=== PATIENT | male | born 1935 | race Caucasian/White ===

== ENCOUNTER 2016-05-27 08:38 | Outpatient (RCR) | payer MEDICARE, OTHER ==
[~2016-05-27 08:38] MED LIST: ASPI-586 PO; CARV40CP PO; CEFT1PIG IV; COREG; GLIP10TA13 PO; LISI1TAB8 PO; METF1000 PO; SAXA5TAB PO; SIMV20TA3 PO; SIMVASTATIN; ZOLP5TAB7 PO
[2016-05-27 09:13] LABS: MEAN CORPUSCULAR HEMOGLOBIN 29 PG (25-34); MEAN CORPUSCULAR HGB CONC 34 G/DL (32-36); MEAN CORPUSCULAR VOLUME 85 FL (80-99); MEAN PLATELET VOLUME 9.3 FL (7.4-10.4); PLATELET COUNT 160 10^3/uL (130-400); RED BLOOD COUNT 4.26 10^6/uL (4.35-5.85); RED CELL DISTRIBUTION WIDTH 14.5 % (10.0-14.5); WHITE BLOOD COUNT 18.5 10^3/uL (4.3-11.0)
[2016-05-27 10:25] LABS: ALBUMIN 4.2 G/DL (3.2-4.5); BILIRUBIN,TOTAL 0.4 MG/DL (0.1-1.0); CALCIUM 9.6 MG/DL (8.5-10.1); CREATININE SERUM 1.28 MG/DL (0.60-1.30); TOTAL PROTEIN 7.4 G/DL (6.4-8.2)
== END 2016-08-25 | disposition home or self-care (01) ==
LOC: ONC 08:38
PROVIDERS: ATTEND Internal Medicine Hematology & Oncology
DX: C85.90 Non-Hodgkin lymphoma, unspecified, unspecified site (principal); I25.10 Atherosclerotic heart disease of native coronary artery without angina pectoris; E11.9 Type 2 diabetes mellitus without complications; I10 Essential (primary) hypertension; E78.00 Pure hypercholesterolemia, unspecified; N40.0 Benign prostatic hyperplasia without lower urinary tract symptoms; Z86.73 Personal history of transient ischemic attack (TIA), and cerebral infarction without residual deficits; Z95.1 Presence of aortocoronary bypass graft; Z79.899 Other long term (current) drug therapy
CPT/HCPCS: 36415; 80053; 82232; 83615; 85025; 99213

== ENCOUNTER 2016-10-07 09:41 | Outpatient (RCR) | payer MEDICARE, OTHER ==
[2016-10-07 10:04] LABS: MEAN CORPUSCULAR HEMOGLOBIN 29 PG (25-34); MEAN CORPUSCULAR HGB CONC 32 G/DL (32-36); MEAN CORPUSCULAR VOLUME 88 FL (80-99); MEAN PLATELET VOLUME 9.7 FL (7.4-10.4); PLATELET COUNT 121 10^3/uL (130-400); RED BLOOD COUNT 4.18 10^6/uL (4.35-5.85); RED CELL DISTRIBUTION WIDTH 14.2 % (10.0-14.5); WHITE BLOOD COUNT 18.1 10^3/uL (4.3-11.0)
[2016-10-07 10:26] LABS: ALBUMIN 3.9 G/DL (3.2-4.5); BILIRUBIN,TOTAL 0.6 MG/DL (0.1-1.0); CALCIUM 9.3 MG/DL (8.5-10.1); CREATININE SERUM 1.28 MG/DL (0.60-1.30); POTASSIUM 4.8 MMOL/L (3.6-5.0)
[2016-10-07 10:45] LABS: BAND NEUTROPHILS 0 %; BASOPHILS % (MANUAL) 0 %; EOSINOPHILS % (MANUAL) 1 %; LYMPHOCYTES % (MANUAL) 5 %; NEUTROPHILS % (MANUAL) 25 %
[2016-10-07 10:47] LABS: ANISOCYTOSIS SLIGHT; ATYPICAL LYMPHOCYTES 67 %
== END 2017-01-05 | disposition home or self-care (01) ==
LOC: ONC 09:41
PROVIDERS: ATTEND Internal Medicine Hematology & Oncology
DX: C85.90 Non-Hodgkin lymphoma, unspecified, unspecified site (principal); I25.10 Atherosclerotic heart disease of native coronary artery without angina pectoris; E11.9 Type 2 diabetes mellitus without complications; I10 Essential (primary) hypertension; E78.00 Pure hypercholesterolemia, unspecified; N40.0 Benign prostatic hyperplasia without lower urinary tract symptoms; Z86.73 Personal history of transient ischemic attack (TIA), and cerebral infarction without residual deficits; Z95.1 Presence of aortocoronary bypass graft; Z79.899 Other long term (current) drug therapy
CPT/HCPCS: 36415; 80053; 82232; 82784; 83615; 85007; 85027; 86146; 99213

== ENCOUNTER 2016-10-29 13:10 | Outpatient (RCR) | payer MEDICARE, OTHER | END 2016-10-29 14:36 | disposition home or self-care (01) | PROVIDERS: ATTEND Orthopaedic Surgery | DX: M17.0 Bilateral primary osteoarthritis of knee (principal) ==

== ENCOUNTER 2017-01-17 09:11 | Outpatient (RCR) | payer MEDICARE, OTHER ==
[2017-01-17 10:10] LABS: BASOPHILS # (AUTO) 0.1 10^3/uL (0.0-0.1); BASOPHILS % (AUTO) 1 % (0-10); EOSINOPHILS # (AUTO) 0.2 10^3/uL (0.0-0.3); EOSINOPHILS % (AUTO) 1 % (0-10); MEAN CORPUSCULAR HEMOGLOBIN 29 PG (25-34); MEAN CORPUSCULAR HGB CONC 33 G/DL (32-36); MEAN CORPUSCULAR VOLUME 87 FL (80-99); MEAN PLATELET VOLUME 9.7 FL (7.4-10.4); PLATELET COUNT 123 10^3/uL (130-400); RED BLOOD COUNT 4.38 10^6/uL (4.35-5.85); WHITE BLOOD COUNT 16.5 10^3/uL (4.3-11.0)
[2017-01-17 10:29] LABS: ALBUMIN 4.1 GM/DL (3.2-4.5); BILIRUBIN,TOTAL 0.8 MG/DL (0.1-1.0); CALCIUM 9.6 MG/DL (8.5-10.1); CREATININE SERUM 1.18 MG/DL (0.60-1.30); POTASSIUM 4.6 MMOL/L (3.6-5.0); TOTAL PROTEIN 7.6 GM/DL (6.4-8.2)
== END 2017-02-19 | disposition home or self-care (01) ==
LOC: ONC 09:11
PROVIDERS: ATTEND Internal Medicine Hematology & Oncology
DX: C85.90 Non-Hodgkin lymphoma, unspecified, unspecified site (principal); I25.10 Atherosclerotic heart disease of native coronary artery without angina pectoris; E11.9 Type 2 diabetes mellitus without complications; I10 Essential (primary) hypertension; E78.00 Pure hypercholesterolemia, unspecified; N40.0 Benign prostatic hyperplasia without lower urinary tract symptoms; Z86.73 Personal history of transient ischemic attack (TIA), and cerebral infarction without residual deficits; Z95.1 Presence of aortocoronary bypass graft; Z79.899 Other long term (current) drug therapy
CPT/HCPCS: 36415; 80053; 82232; 85025; 99213

== ENCOUNTER 2017-07-21 09:57 | Outpatient (RCR) | payer MEDICARE, OTHER ==
[2017-04-25 09:58] LABS: HEMATOCRIT 38 % (40-54); HEMOGLOBIN 12.7 G/DL (13.3-17.7); MEAN CORPUSCULAR HEMOGLOBIN 30 PG (25-34); MEAN CORPUSCULAR HGB CONC 33 G/DL (32-36); MEAN CORPUSCULAR VOLUME 89 FL (80-99); MEAN PLATELET VOLUME 9.8 FL (7.4-10.4); PLATELET COUNT 114 10^3/uL (130-400); RED BLOOD COUNT 4.31 10^6/uL (4.35-5.85); RED CELL DISTRIBUTION WIDTH 14.1 % (10.0-14.5); WHITE BLOOD COUNT 19.1 10^3/uL (4.3-11.0)
[2017-04-25 10:12] LABS: BILIRUBIN,TOTAL 0.7 MG/DL (0.1-1.0); CALCIUM 9.5 MG/DL (8.5-10.1); CREATININE SERUM 1.22 MG/DL (0.60-1.30); POTASSIUM 4.9 MMOL/L (3.6-5.0); TOTAL PROTEIN 7.7 GM/DL (6.4-8.2)
[2017-06-16 09:35] LABS: HEMATOCRIT 39 % (40-54); MEAN CORPUSCULAR HEMOGLOBIN 29 PG (25-34); MEAN CORPUSCULAR HGB CONC 33 G/DL (32-36); MEAN CORPUSCULAR VOLUME 88 FL (80-99); MEAN PLATELET VOLUME 9.7 FL (7.4-10.4); PLATELET COUNT 172 10^3/uL (130-400); RED BLOOD COUNT 4.44 10^6/uL (4.35-5.85); RED CELL DISTRIBUTION WIDTH 14.1 % (10.0-14.5); WHITE BLOOD COUNT 21.7 10^3/uL (4.3-11.0)
[2017-06-16 09:54] LABS: ALBUMIN 3.6 GM/DL (3.2-4.5); BILIRUBIN,TOTAL 0.7 MG/DL (0.1-1.0); CALCIUM 9.7 MG/DL (8.5-10.1); CREATININE SERUM 1.37 MG/DL (0.60-1.30); TOTAL PROTEIN 7.5 GM/DL (6.4-8.2)
[2017-07-21 10:15] LABS: HEMATOCRIT 36 % (40-54); MEAN CORPUSCULAR HEMOGLOBIN 30 PG (25-34); MEAN CORPUSCULAR HGB CONC 33 G/DL (32-36); MEAN CORPUSCULAR VOLUME 90 FL (80-99); PLATELET COUNT 112 10^3/uL (130-400); RED BLOOD COUNT 3.97 10^6/uL (4.35-5.85); RED CELL DISTRIBUTION WIDTH 14.9 % (10.0-14.5); WHITE BLOOD COUNT 18.9 10^3/uL (4.3-11.0)
[2017-07-21 10:35] LABS: BILIRUBIN,TOTAL 0.9 MG/DL (0.1-1.0); CALCIUM 9.3 MG/DL (8.5-10.1); CREATININE SERUM 1.17 MG/DL (0.60-1.30); POTASSIUM 4.6 MMOL/L (3.6-5.0); TOTAL PROTEIN 7.3 GM/DL (6.4-8.2)
== END 2017-07-24 | disposition home or self-care (01) ==
LOC: ONC 09:57
PROVIDERS: ATTEND Internal Medicine Hematology & Oncology
DX: C85.90 Non-Hodgkin lymphoma, unspecified, unspecified site (principal); I25.10 Atherosclerotic heart disease of native coronary artery without angina pectoris; E11.9 Type 2 diabetes mellitus without complications; I10 Essential (primary) hypertension; E78.00 Pure hypercholesterolemia, unspecified; N40.0 Benign prostatic hyperplasia without lower urinary tract symptoms; Z86.73 Personal history of transient ischemic attack (TIA), and cerebral infarction without residual deficits; Z95.1 Presence of aortocoronary bypass graft; Z79.899 Other long term (current) drug therapy
CPT/HCPCS: 36415; 80053; 82784; 83615; 85025; 99213

== ENCOUNTER 2017-07-28 08:15 | Observation (INO) | payer MEDICARE, OTHER ==
[~2017-07-28] VITALS: Ht 167.6 cm; Wt 89.9 kg
--- OUTSIDE RECORDS SUMMARY | 2017-07-28 08:22 | XMS REPORT | Continuity of Care Document ---
Author Author [facility] Organization [facility] Address Unknown Phone Unavailable Allergies Active Description Code Type Severity Reaction Onset Reported/Identified Relationship to Patient Clinical Status Yes No Known Drug Allergies [id number] Drug Allergy Unknown N/A 09/04/2015 Medications There is no data. 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 09/06/2015 NANCY ESTES MD R Ot R20.2 PARESTHESIA OF SKIN 09/08/2015 NANCY ESTES MD R Ot 786.7 ABNORMAL CHEST SOUNDS 09/09/2015 NANCY ESTES MD R Ot 786.7 ABNORMAL CHEST SOUNDS 09/09/2015 NANCY ESTES MD R Ot D72.829 ELEVATED WHITE BLOOD CELL COUNT, UNSPECI 09/09/2015 NANCY ESTES MD R Ot J32.9 CHRONIC SINUSITIS, UNSPECIFIED 09/09/2015 NANCY ESTES MD R Ot D72.829 ELEVATED WHITE BLOOD CELL COUNT, UNSPECI 09/09/2015 NANCY ESTES MD R Ot J32.9 CHRONIC SINUSITIS, UNSPECIFIED 09/10/2015 NANCY ESTES MD R Ot D72.829 ELEVATED WHITE BLOOD CELL COUNT, UNSPECI 09/10/2015 NANCY ESTES MD R Ot J32.9 CHRONIC SINUSITIS, UNSPECIFIED 09/11/2015 SEGLIE MD, NANCY R Ot D72.829 ELEVATED WHITE BLOOD CELL COUNT, UNSPECI 09/11/2015 MEERA THOMAS NANCY R Ot J32.9 CHRONIC SINUSITIS, UNSPECIFIED 09/12/2015 MEERA THOMAS NANCY R Ot D72.829 ELEVATED WHITE BLOOD CELL COUNT, UNSPECI 09/12/2015 MEERA THOMAS NANCY R Ot J32.9 CHRONIC SINUSITIS, UNSPECIFIED 09/13/2015 MEERA THOMAS NANCY R Ot D72.829 ELEVATED WHITE BLOOD CELL COUNT, UNSPECI 09/13/2015 MEERA THOMAS NANCY R Ot J32.9 CHRONIC SINUSITIS, UNSPECIFIED 09/13/2015 MEERA THOMAS NANCY R Ot D72.829 ELEVATED WHITE BLOOD CELL COUNT, UNSPECI 09/13/2015 MEERA THOMAS NANCY R Ot J32.9 CHRONIC SINUSITIS, UNSPECIFIED 09/23/2015 MEERA THOMAS NANCY R Ot 786.7 ABNORMAL CHEST SOUNDS 09/23/2015 MEERA THOMAS NANCY R Ot D72.829 ELEVATED WHITE BLOOD CELL COUNT, UNSPECI 09/23/2015 MEERA THOMAS NANCY R Ot J32.9 CHRONIC SINUSITIS, UNSPECIFIED 09/30/2015 MEERA THOMAS NANCY R Ot 786.7 ABNORMAL CHEST SOUNDS 09/30/2015 MEERA THOMAS NANCY R Ot D72.829 ELEVATED WHITE BLOOD CELL COUNT, UNSPECI 09/30/2015 MEERA THOMAS NANCY R Ot J32.9 CHRONIC SINUSITIS, UNSPECIFIED 10/01/2015 LASHELL THOMAS FACC, JAMI FACP CCDS Ot 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 10/01/2015 LASHELL THOMAS FACC, ALI FACP CCDS Ot I25.10 ATHSCL HEART DISEASE OF [place] CORONARY 10/01/2015 LASHELL THOMAS FACC, ALI FACP CCDS Ot I49.3 VENTRICULAR PREMATURE DEPOLARIZATION 10/01/2015 LASHELL THOMAS FACC, JAMI FACP CCDS Ot 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 10/01/2015 LASHELL THOMAS FACC, JAMI FACP CCDS Ot I25.10 ATHSCL HEART DISEASE OF [place] CORONARY 10/01/2015 LASHELL THOMAS FACC, AJMI FACP CCDS Ot I49.3 VENTRICULAR PREMATURE DEPOLARIZATION 10/03/2015 LASHELL THOMAS FACC, ALI FACP CCDS Ot 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 10/03/2015 LASHELL THOMAS FACC, ALI FACP CCDS Ot I25.10 ATHSCL HEART DISEASE OF [place] CORONARY 10/03/2015 LASHELL THOMAS FACC, ALI FACP CCDS Ot I49.3 VENTRICULAR PREMATURE DEPOLARIZATION 10/03/2015 LASHELL THOMAS FACC, ALI FACP CCDS Ot 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 10/03/2015 LASHELL THOMAS FACC, ALI FACP CCDS Ot I25.10 ATHSCL HEART DISEASE OF [place] CORONARY 10/03/2015 LASHELL THOMAS FACC, ALI FACP CCDS Ot I49.3 VENTRICULAR PREMATURE DEPOLARIZATION 10/06/2015 LASHELL THOMAS FACC, ALI FACP CCDS Ot 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 10/06/2015 LASHELL THOMAS FACBrendon, ALI FACP CCDS Ot I25.10 ATHSCL HEART DISEASE OF [place] CORONARY 10/06/2015 LASHELL THOMAS FACC, ALI FACP CCDS Ot I49.3 VENTRICULAR PREMATURE DEPOLARIZATION 10/07/2015 MEERA THOMAS, NANCY R Ot 786.7 ABNORMAL CHEST SOUNDS 10/07/2015 MEERA THOMAS NANCY R Ot D72.829 ELEVATED WHITE BLOOD CELL COUNT, UNSPECI 10/07/2015 NANCY ESTES MD R Ot J32.9 CHRONIC SINUSITIS, UNSPECIFIED 10/07/2015 LASHELL THOMAS FACC, ALI FACP CCDS Ot 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 10/07/2015 LASHELL THOMAS FACC, ALI FACP CCDS Ot I25.10 ATHSCL HEART DISEASE OF [place] CORONARY 10/07/2015 LASHELL THOMAS FACC, ALI FACP CCDS Ot I49.3 VENTRICULAR PREMATURE DEPOLARIZATION 10/07/2015 LASHELL THOMAS FACC, ALI FACP CCDS Ot 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 10/07/2015 LASHELL THOMAS FACC, ALI FACP CCDS Ot I25.10 ATHSCL HEART DISEASE OF [place] CORONARY 10/07/2015 LASHELL THOMAS FACC, ALI FACP CCDS Ot I49.3 VENTRICULAR PREMATURE DEPOLARIZATION 10/13/2015 NANCY ESTES MD R Ot D72.829 ELEVATED WHITE BLOOD CELL COUNT, UNSPECI 10/13/2015 NANCY ESTES MD R Ot J32.9 CHRONIC SINUSITIS, UNSPECIFIED 10/28/2015 LASHELL THOMAS [facility], ALI FACP CCDS Ot 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 10/28/2015 LASHELL THOMAS [facility], ALI [facility] CCDS Ot I25.10 ATHSCL HEART DISEASE OF [place] CORONARY 10/28/2015 LASHELL THOMAS [facility], ALI FACP CCDS Ot I49.3 VENTRICULAR PREMATURE DEPOLARIZATION 10/28/2015 LASHELL THOMAS [facility], ALI FACP CCDS Ot 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 10/28/2015 LASHELL THOMAS [facility], ALI FACP CCDS Ot I25.10 ATHSCL HEART DISEASE OF [place] CORONARY 10/28/2015 LASHELL THOMAS [facility], ALI [facility] CCDS Ot I49.3 VENTRICULAR PREMATURE DEPOLARIZATION 10/28/2015 LIAN THOMAS, SHANELL Finch Ot 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, UNSPECIFIED, UNSPE 10/28/2015 SHANELL BEAL MD, Ot 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, UNSPECIFIED, UNSPE 10/29/2015 SHANELL BEAL MD, Ot 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, UNSPECIFIED, UNSPE 10/30/2015 SHANELL BEAL MD Ot 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 10/30/2015 LIAN THOMAS, SHANELL Finch Ot 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, UNSPECIFIED, UNSPE 10/30/2015 SHANELL BEAL MD Ot 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 10/30/2015 LIAN THOMAS, SHANELL Finch Ot 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, UNSPECIFIED, UNSPE 10/30/2015 SHANELL BEAL MD, Ot 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, UNSPECIFIED, UNSPE 11/14/2015 SHANELL BEAL MD Ot D72.820 LYMPHOCYTOSIS (SYMPTOMATIC) 11/14/2015 SHANELL BEAL MD Ot E11.9 TYPE 2 DIABETES MELLITUS WITHOUT COMPLIC 11/14/2015 SHANELL BEAL MD Ot E78.0 PURE HYPERCHOLESTEROLEMIA 11/14/2015 SHANELL BEAL MD Ot I10 ESSENTIAL (PRIMARY) HYPERTENSION 11/14/2015 SHANELL BEAL MD, Ot I25.10 ATHSCL HEART DISEASE OF [place] CORONARY 11/14/2015 SHANELL BEAL MD, Ot N40.0 ENLARGED PROSTATE WITHOUT LOWER URINARY 11/14/2015 SHANELL BEAL MD Ot R22.0 LOCALIZED SWELLING, MASS AND LUMP, HEAD 11/14/2015 SHANELL BEAL MD Ot 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 11/14/2015 SHANELL BEAL MD, Ot Z86.73 PRSNL HX OF TIA (TIA), AND CEREB INFRC W 11/14/2015 SHANELL BEAL MD, Ot Z95.1 PRESENCE OF AORTOCORONARY BYPASS GRAFT 11/14/2015 NANCY ESTES MD Ot 786.7 ABNORMAL CHEST SOUNDS 11/14/2015 NANCY ESTES MD, Ot D72.829 ELEVATED WHITE BLOOD CELL COUNT, UNSPECI 11/14/2015 NANCY ESTES MD, Ot J32.9 CHRONIC SINUSITIS, UNSPECIFIED 11/14/2015 LASHELL THOMAS FACC, ALI FACP CCDS Ot 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 11/14/2015 LASHELL THOMAS FACC, ALI FACP CCDS Ot I25.10 ATHSCL HEART DISEASE OF [place] CORONARY 11/14/2015 LASHELL THOMAS FACC, ALI FACP CCDS Ot I49.3 VENTRICULAR PREMATURE DEPOLARIZATION 11/14/2015 LASHELL THOMAS FACC, ALI FACP CCDS Ot 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 11/14/2015 LASHELL THOMAS FACC, ALI FACP CCDS Ot I25.10 ATHSCL HEART DISEASE OF [place] CORONARY 11/14/2015 LASHELL THOMAS FACC, ALI FACP CCDS Ot I49.3 VENTRICULAR PREMATURE DEPOLARIZATION 11/14/2015 SHANELL BEAL MD, Ot D72.820 LYMPHOCYTOSIS (SYMPTOMATIC) 11/14/2015 SHANELL BEAL MD Ot E11.9 TYPE 2 DIABETES MELLITUS WITHOUT COMPLIC 11/14/2015 SHANELL BEAL MD, Ot E78.0 PURE HYPERCHOLESTEROLEMIA 11/14/2015 SHANELL BEAL MD Ot I10 ESSENTIAL (PRIMARY) HYPERTENSION 11/14/2015 SHANELL BEAL MD, Ot I25.10 ATHSCL HEART DISEASE OF [place] CORONARY 11/14/2015 SHANELL BEAL MD Ot N40.0 ENLARGED PROSTATE WITHOUT LOWER URINARY 11/14/2015 SHANELL BEAL MD, Ot R22.0 LOCALIZED SWELLING, MASS AND LUMP, HEAD 11/14/2015 SHANELL BEAL MD, Ot Z79.899 OTHER DETENTION (CURRENT) DRUG THERAPY 11/14/2015 SHANELL BEAL MD, Ot Z86.73 PRSNL HX OF TIA (TIA), AND CEREB INFRC W 11/14/2015 SHANELL BEAL MD Ot Z95.1 PRESENCE OF AORTOCORONARY BYPASS GRAFT 11/14/2015 LIAN THOMAS, SHANELL Finch Ot 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, UNSPECIFIED, UNSPE 11/14/2015 LIAN THOMAS, SHANELL Finch Ot 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 11/14/2015 LIAN THOMAS, SHANELL Finch Ot 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, UNSPECIFIED, UNSPE 11/18/2015 SHANELL BEAL MD, Ot 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, UNSPECIFIED, UNSPE 11/18/2015 SHANELL BEAL MD Ot 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 11/26/2015 SHANELL BEAL MD, Ot 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, UNSPECIFIED, UNSPE 11/28/2015 MEERA THOMAS, NANCY Andrew Ot 786.7 ABNORMAL CHEST SOUNDS 11/28/2015 NANCY ESTES MD Ot D72.829 ELEVATED WHITE BLOOD CELL COUNT, UNSPECI 11/28/2015 NANCY ESTES MD Ot J32.9 CHRONIC SINUSITIS, UNSPECIFIED 11/28/2015 LASHELL THOMAS FACC, ALI FACP CCDS Ot 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 11/28/2015 LASHELL THOMAS FACC, ALI FACP CCDS Ot I25.10 ATHSCL HEART DISEASE OF [place] CORONARY 11/28/2015 LASHELL HASKINSC, ALI FACP CCDS Ot I49.3 VENTRICULAR PREMATURE DEPOLARIZATION 11/28/2015 LASHELL THOMAS FACC, ALI FACP CCDS Ot 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 11/28/2015 LASHELL THOMAS FACC, ALI FACP CCDS Ot I25.10 ATHSCL HEART DISEASE OF [place] CORONARY 11/28/2015 LASHELL HASKINSC, ALI FACP CCDS Ot I49.3 VENTRICULAR PREMATURE DEPOLARIZATION 11/28/2015 SHANELL BEAL MD Ot D72.820 LYMPHOCYTOSIS (SYMPTOMATIC) 11/28/2015 SHANELL BEAL MD Ot E11.9 TYPE 2 DIABETES MELLITUS WITHOUT COMPLIC 11/28/2015 SHANELL BEAL MD Ot E78.0 PURE HYPERCHOLESTEROLEMIA 11/28/2015 SHANELL BEAL MD Ot I10 ESSENTIAL (PRIMARY) HYPERTENSION 11/28/2015 SHANELL BEAL MD Ot I25.10 ATHSCL HEART DISEASE OF [place] CORONARY 11/28/2015 SHANELL BEAL MD Ot N40.0 ENLARGED PROSTATE WITHOUT LOWER URINARY 11/28/2015 SHANELL BEAL MD Ot R22.0 LOCALIZED SWELLING, MASS AND LUMP, HEAD 11/28/2015 SHANELL BEAL MD, Ot Z79.899 OTHER DETENTION (CURRENT) DRUG THERAPY 11/28/2015 SHANELL BEAL MD, Ot Z86.73 PRSNL HX OF TIA (TIA), AND CEREB INFRC W 11/28/2015 SHANELL BEAL MD, Ot Z95.1 PRESENCE OF AORTOCORONARY BYPASS GRAFT 11/28/2015 SHANELL BEAL MD, Ot 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, UNSPECIFIED, UNSPE 11/28/2015 SHANELL BEAL MD, Ot 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 11/28/2015 SHANELL BEAL MD, Ot 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, UNSPECIFIED, UNSPE 11/28/2015 NANCY ESTES MD Ot 786.7 ABNORMAL CHEST SOUNDS 11/28/2015 NANCY ESTES MD, Ot D72.829 ELEVATED WHITE BLOOD CELL COUNT, UNSPECI 11/28/2015 NANCY ESTES MD, Ot J32.9 CHRONIC SINUSITIS, UNSPECIFIED 11/28/2015 LASHELL HASKINS, ALI FACP CCDS Ot 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 11/28/2015 LASHELL THOMAS FACC, ALI FACP CCDS Ot I25.10 ATHSCL HEART DISEASE OF [place] CORONARY 11/28/2015 LASHELL THOMAS FACC, ALI FACP CCDS Ot I49.3 VENTRICULAR PREMATURE DEPOLARIZATION 11/28/2015 LASHELL THOMAS FACC, ALI FACP CCDS Ot 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 11/28/2015 LASHELL THOMAS FACC, ALI FACP CCDS Ot I25.10 ATHSCL HEART DISEASE OF [place] CORONARY 11/28/2015 LASHELL HASKINS, ALI FACP CCDS Ot I49.3 VENTRICULAR PREMATURE DEPOLARIZATION 11/28/2015 SHANELL BEAL MD, Ot D72.820 LYMPHOCYTOSIS (SYMPTOMATIC) 11/28/2015 SHANELL BEAL MD, Ot E11.9 TYPE 2 DIABETES MELLITUS WITHOUT COMPLIC 11/28/2015 SHANELL BEAL MD, Ot E78.0 PURE HYPERCHOLESTEROLEMIA 11/28/2015 SHANELL BEAL MD Ot I10 ESSENTIAL (PRIMARY) HYPERTENSION 11/28/2015 SHANELL BEAL MD, Ot I25.10 ATHSCL HEART DISEASE OF [place] CORONARY 11/28/2015 SHANELL BEAL MD, Ot N40.0 ENLARGED PROSTATE WITHOUT LOWER URINARY 11/28/2015 SHANELL BEAL MD, Ot R22.0 LOCALIZED SWELLING, MASS AND LUMP, HEAD 11/28/2015 SHANELL BEAL MD, Ot 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 11/28/2015 SHANELL BEAL MD, Ot Z86.73 PRSNL HX OF TIA (TIA), AND CEREB INFRC W 11/28/2015 SHANELL BEAL MD, Ot Z95.1 PRESENCE OF AORTOCORONARY BYPASS GRAFT 11/28/2015 SHANELL BEAL MD, Ot 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, UNSPECIFIED, UNSPE 11/28/2015 SHANELL BEAL MD, Ot 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 11/28/2015 SHANELL BEAL MD, Ot 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, UNSPECIFIED, UNSPE 12/06/2015 NANCY ESTES MD, Ot D72.829 ELEVATED WHITE BLOOD CELL COUNT, UNSPECI 12/06/2015 NANCY ESTES MD, Ot J32.9 CHRONIC SINUSITIS, UNSPECIFIED 01/05/2016 SHANELL BEAL MD, Ot D72.820 LYMPHOCYTOSIS (SYMPTOMATIC) 01/05/2016 SHANELL BEAL MD, Ot E11.9 TYPE 2 DIABETES MELLITUS WITHOUT COMPLIC 01/05/2016 SHANELL BEAL MD, Ot E78.0 PURE HYPERCHOLESTEROLEMIA 01/05/2016 SHANELL BEAL MD, Ot I10 ESSENTIAL (PRIMARY) HYPERTENSION 01/05/2016 SHANELL BEAL MD, Ot I25.10 ATHSCL HEART DISEASE OF [place] CORONARY 01/05/2016 SHANELL BEAL MD, Ot N40.0 ENLARGED PROSTATE WITHOUT LOWER URINARY 01/05/2016 SHANELL BEAL MD, Ot R22.0 LOCALIZED SWELLING, MASS AND LUMP, HEAD 01/05/2016 SHANELL BEAL MD, Ot 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 01/05/2016 SHANELL BEAL MD, Ot Z86.73 PRSNL HX OF TIA (TIA), AND CEREB INFRC W 01/05/2016 SHANELL BEAL MD, Ot Z95.1 PRESENCE OF AORTOCORONARY BYPASS GRAFT 01/09/2016 SHANELL BEAL MD, Ot D72.820 LYMPHOCYTOSIS (SYMPTOMATIC) 01/09/2016 SHANELL BEAL MD, Ot E11.9 TYPE 2 DIABETES MELLITUS WITHOUT COMPLIC 01/09/2016 SHANELL BEAL MD, Ot E78.0 PURE HYPERCHOLESTEROLEMIA 01/09/2016 SHANELL BEAL MD Ot I10 ESSENTIAL (PRIMARY) HYPERTENSION 01/09/2016 SHANELL BEAL MD Ot I25.10 ATHSCL HEART DISEASE OF [place] CORONARY 01/09/2016 SHANELL BEAL MD, Ot N40.0 ENLARGED PROSTATE WITHOUT LOWER URINARY 01/09/2016 SHANELL BEAL MD, Ot R22.0 LOCALIZED SWELLING, MASS AND LUMP, HEAD 01/09/2016 SHANELL BEAL MD, Ot Z79.899 OTHER DETENTION (CURRENT) DRUG THERAPY 01/09/2016 SHANELL BEAL MD, Ot Z86.73 PRSNL HX OF TIA (TIA), AND CEREB INFRC W 01/09/2016 SHANELL BEAL MD, Ot Z95.1 PRESENCE OF AORTOCORONARY BYPASS GRAFT 01/13/2016 NANCY ESTES MD Ot 786.7 ABNORMAL CHEST SOUNDS 01/13/2016 LASHELL THOMAS FACC, ALI FACP CCDS Ot 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 01/13/2016 LASHELL THOMAS FACC, ALI FACP CCDS Ot I25.10 ATHSCL HEART DISEASE OF [place] CORONARY 01/13/2016 LASHELL THOMAS FACC, ALI FACP CCDS Ot I49.3 VENTRICULAR PREMATURE DEPOLARIZATION 01/13/2016 LASHELL THOMAS FACC, ALI FACP CCDS Ot 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 01/13/2016 LASHELL THOMAS FACC, ALI FACP CCDS Ot I25.10 ATHSCL HEART DISEASE OF [place] CORONARY 01/13/2016 LASHELL THOMAS FACC, ALI FACP CCDS Ot I49.3 VENTRICULAR PREMATURE DEPOLARIZATION 01/13/2016 SHANELL BEAL MD Ot 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, UNSPECIFIED, UNSPE 01/13/2016 SHANELL BEAL MD Ot 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 01/13/2016 SHANELL BEAL MD, Ot 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, UNSPECIFIED, UNSPE 01/13/2016 NANCY ESTES MD, Ot D72.829 ELEVATED WHITE BLOOD CELL COUNT, UNSPECI 01/13/2016 NANCY ESTES MD, Ot J32.9 CHRONIC SINUSITIS, UNSPECIFIED 01/13/2016 SHANELL BEAL MD, Ot D72.820 LYMPHOCYTOSIS (SYMPTOMATIC) 01/13/2016 SHANELL BEAL MD, Ot E11.9 TYPE 2 DIABETES MELLITUS WITHOUT COMPLIC 01/13/2016 SHANELL BEAL MD, Ot E78.0 PURE HYPERCHOLESTEROLEMIA 01/13/2016 SHANELL BEAL MD Ot I10 ESSENTIAL (PRIMARY) HYPERTENSION 01/13/2016 SHANELL BEAL MD, Ot I25.10 ATHSCL HEART DISEASE OF [place] CORONARY 01/13/2016 SHANELL BEAL MD, Ot N40.0 ENLARGED PROSTATE WITHOUT LOWER URINARY 01/13/2016 SHANELL BEAL MD, Ot R22.0 LOCALIZED SWELLING, MASS AND LUMP, HEAD 01/13/2016 SHANELL BEAL MD, Ot 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 01/13/2016 SHANELL BEAL MD, Ot Z86.73 PRSNL HX OF TIA (TIA), AND CEREB INFRC W 01/13/2016 SHANELL BEAL MD Ot Z95.1 PRESENCE OF AORTOCORONARY BYPASS GRAFT 01/14/2016 SHANELL BEAL MD, Ot D72.820 LYMPHOCYTOSIS (SYMPTOMATIC) 01/14/2016 SHANELL BEAL MD, Ot E11.9 TYPE 2 DIABETES MELLITUS WITHOUT COMPLIC 01/14/2016 SHANELL BEAL MD, Ot E78.0 PURE HYPERCHOLESTEROLEMIA 01/14/2016 SHANELL BEAL MD, Ot I10 ESSENTIAL (PRIMARY) HYPERTENSION 01/14/2016 SHANELL BEAL MD, Ot I25.10 ATHSCL HEART DISEASE OF [place] CORONARY 01/14/2016 SHANELL BEAL MD, Ot N40.0 ENLARGED PROSTATE WITHOUT LOWER URINARY 01/14/2016 SHANELL BEAL MD, Ot R22.0 LOCALIZED SWELLING, MASS AND LUMP, HEAD 01/14/2016 SHANELL BEAL MD, Ot Z79.899 OTHER DETENTION (CURRENT) DRUG THERAPY 01/14/2016 SHANELL BEAL MD, Ot Z86.73 PRSNL HX OF TIA (TIA), AND CEREB INFRC W 01/14/2016 SHANELL BEAL MD Ot Z95.1 PRESENCE OF AORTOCORONARY BYPASS GRAFT 02/12/2016 SHANELL BEAL MD Ot 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, UNSPECIFIED, UNSPE 02/12/2016 SHANELL BEAL MD, Ot E11.9 TYPE 2 DIABETES MELLITUS WITHOUT COMPLIC 02/12/2016 SHANELL BEAL MD, Ot E78.0 PURE HYPERCHOLESTEROLEMIA 02/12/2016 SHANELL BEAL MD Ot I10 ESSENTIAL (PRIMARY) HYPERTENSION 02/12/2016 SHANELL BEAL MD Ot I25.10 ATHSCL HEART DISEASE OF [place] CORONARY 02/12/2016 LIAN MD, SHANELL K Ot N40.0 ENLARGED PROSTATE WITHOUT LOWER URINARY 02/12/2016 SHANELL BEAL MD Ot 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 02/12/2016 SHANELL BEAL MD, Ot Z86.73 PRSNL HX OF TIA (TIA), AND CEREB INFRC W 02/12/2016 SHANELL BEAL MD Ot Z95.1 PRESENCE OF AORTOCORONARY BYPASS GRAFT 04/12/2016 SHANELL BEAL MD, Ot 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, UNSPECIFIED, UNSPE 04/12/2016 SHANELL BEAL MD Ot E11.9 TYPE 2 DIABETES MELLITUS WITHOUT COMPLIC 04/12/2016 SHANELL BEAL MD Ot E78.0 PURE HYPERCHOLESTEROLEMIA 04/12/2016 SHANELL BEAL MD Ot I10 ESSENTIAL (PRIMARY) HYPERTENSION 04/12/2016 SHANELL BEAL MD Ot I25.10 ATHSCL HEART DISEASE OF [place] CORONARY 04/12/2016 SHANELL BEAL MD, Ot N40.0 BENIGN PROSTATIC HYPERPLASIA WITHOUT LOW 04/12/2016 SHANELL BEAL MD, Ot Z79.899 OTHER DETENTION (CURRENT) DRUG THERAPY 04/12/2016 SHANELL BEAL MD, Ot Z86.73 PRSNL HX OF TIA (TIA), AND CEREB INFRC W 04/12/2016 SHANELL BEAL MD Ot Z95.1 PRESENCE OF AORTOCORONARY BYPASS GRAFT 04/13/2016 SHANELL BEAL MD, Ot 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, UNSPECIFIED, UNSPE 04/13/2016 SHANELL BEAL MD Ot E11.9 TYPE 2 DIABETES MELLITUS WITHOUT COMPLIC 04/13/2016 SHANELL BEAL MD Ot I10 ESSENTIAL (PRIMARY) HYPERTENSION 04/13/2016 SHANELL BEAL MD Ot I25.10 ATHSCL HEART DISEASE OF [place] CORONARY 04/13/2016 SHANELL BEAL MD Ot N40.0 BENIGN PROSTATIC HYPERPLASIA WITHOUT LOW 04/13/2016 SHANELL BEAL MD Ot Z79.899 OTHER DETENTION (CURRENT) DRUG THERAPY 04/13/2016 SHANELL BEAL MD Ot Z86.73 PRSNL HX OF TIA (TIA), AND CEREB INFRC W 04/13/2016 SHANELL BEAL MD Ot Z95.1 PRESENCE OF AORTOCORONARY BYPASS GRAFT 05/03/2016 MEERA THOMAS, NANCY R Ot 786.7 ABNORMAL CHEST SOUNDS 05/03/2016 LASHELL THOMAS FACC, ALI FACP CCDS Ot 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 05/03/2016 LASHELL THOMAS FAC, ALI FACP CCDS Ot I25.10 ATHSCL HEART DISEASE OF [place] CORONARY 05/03/2016 LASHELL THOMAS FAC, ALI FACP CCDS Ot I49.3 VENTRICULAR PREMATURE DEPOLARIZATION 05/03/2016 LASHELL THOMAS FACC, ALI FACP CCDS Ot 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 05/03/2016 LASHELL THOMAS FAC, ALI FACP CCDS Ot I25.10 ATHSCL HEART DISEASE OF [place] CORONARY 05/03/2016 LASHELL THOMAS [facility], ALI FACP CCDS Ot I49.3 VENTRICULAR PREMATURE DEPOLARIZATION 05/03/2016 SHANELL BEAL MD Ot 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, UNSPECIFIED, UNSPE 05/03/2016 SHANELL BEAL MD Ot 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 05/03/2016 SHANELL BEAL MD, Ot 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, UNSPECIFIED, UNSPE 05/03/2016 NANCY ESTES MD Ot D72.829 ELEVATED WHITE BLOOD CELL COUNT, UNSPECI 05/03/2016 NANCY ESTES MD, Ot J32.9 CHRONIC SINUSITIS, UNSPECIFIED 05/03/2016 SHANELL BEAL MD, Ot 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, UNSPECIFIED, UNSPE 05/03/2016 SHANELL BEAL MD Ot E11.9 TYPE 2 DIABETES MELLITUS WITHOUT COMPLIC 05/03/2016 SHANELL BEAL MD, Ot E78.0 PURE HYPERCHOLESTEROLEMIA * DO NOT USE * 05/03/2016 SHANELL BEAL MD Ot I10 ESSENTIAL (PRIMARY) HYPERTENSION 05/03/2016 SHANELL BEAL MD, Ot I25.10 ATHSCL HEART DISEASE OF [place] CORONARY 05/03/2016 SHANELL BEAL MD, Ot N40.0 BENIGN PROSTATIC HYPERPLASIA WITHOUT LOW 05/03/2016 SHANELL BEAL MD, Ot 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 05/03/2016 SHANELL BEAL MD, Ot Z86.73 PRSNL HX OF TIA (TIA), AND CEREB INFRC W 05/03/2016 SHANELL BEAL MD Ot Z95.1 PRESENCE OF AORTOCORONARY BYPASS GRAFT 05/03/2016 NANCY ESTES MD Ot 786.7 ABNORMAL CHEST SOUNDS 05/03/2016 LASHELL THOMAS [facility], ALI FACP CCDS Ot 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 05/03/2016 LASHELL THOMAS [facility], ALI FACP CCDS Ot I25.10 ATHSCL HEART DISEASE OF [place] CORONARY 05/03/2016 LASHELL THOMAS [facility], ALI FACP CCDS Ot I49.3 VENTRICULAR PREMATURE DEPOLARIZATION 05/03/2016 LASHELL THOMAS [facility], ALI FACP CCDS Ot 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 05/03/2016 LASHELL THOMAS [facility], ALI FACP CCDS Ot I25.10 ATHSCL HEART DISEASE OF [place] CORONARY 05/03/2016 LASHELL THOMAS [facility], ALI FACP CCDS Ot I49.3 VENTRICULAR PREMATURE DEPOLARIZATION 05/03/2016 SHANELL BEAL MD, Ot 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, UNSPECIFIED, UNSPE 05/03/2016 SHANELL BEAL MD Ot 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 05/03/2016 SHANELL BEAL MD, Ot 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, UNSPECIFIED, UNSPE 05/03/2016 NANCY ESTES MD, Ot D72.829 ELEVATED WHITE BLOOD CELL COUNT, UNSPECI 05/03/2016 NANCY ESTES MD, Ot J32.9 CHRONIC SINUSITIS, UNSPECIFIED 05/03/2016 SHANELL BEAL MD, Ot 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, UNSPECIFIED, UNSPE 05/03/2016 SHANELL BEAL MD, Ot E11.9 TYPE 2 DIABETES MELLITUS WITHOUT COMPLIC 05/03/2016 SHANELL BEAL MD, Ot E78.0 PURE HYPERCHOLESTEROLEMIA * DO NOT USE * 05/03/2016 SHANELL BEAL MD Ot I10 ESSENTIAL (PRIMARY) HYPERTENSION 05/03/2016 SHANELL BEAL MD, Ot I25.10 ATHSCL HEART DISEASE OF [place] CORONARY 05/03/2016 SHANELL BEAL MD, Ot N40.0 BENIGN PROSTATIC HYPERPLASIA WITHOUT LOW 05/03/2016 SHANELL BEAL MD, Ot 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 05/03/2016 SHANELL BEAL MD, Ot Z86.73 PRSNL HX OF TIA (TIA), AND CEREB INFRC W 05/03/2016 SHANELL BEAL MD, Ot Z95.1 PRESENCE OF AORTOCORONARY BYPASS GRAFT 05/04/2016 SHANELL BEAL MD, Ot C91.10 CHRONIC LYMPHOCYTIC LEUK OF B-CELL TYPE 05/04/2016 SHANELL BEAL MD, Ot D72.820 LYMPHOCYTOSIS (SYMPTOMATIC) 05/04/2016 SHANELL BEAL MD, Ot E11.9 TYPE 2 DIABETES MELLITUS WITHOUT COMPLIC 05/04/2016 SHANELL BEAL MD, Ot I10 ESSENTIAL (PRIMARY) HYPERTENSION 05/28/2016 SHANELL BEAL MD, Ot 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, UNSPECIFIED, UNSPE 05/28/2016 SHANELL BEAL MD, Ot E11.9 TYPE 2 DIABETES MELLITUS WITHOUT COMPLIC 05/28/2016 SHANELL BEAL MD, Ot E78.0 PURE HYPERCHOLESTEROLEMIA * DO NOT USE * 05/28/2016 SHANELL BEAL MD, Ot I10 ESSENTIAL (PRIMARY) HYPERTENSION 05/28/2016 SHANELL BEAL MD, Ot I25.10 ATHSCL HEART DISEASE OF [place] CORONARY 05/28/2016 SHANELL BEAL MD, Ot N40.0 BENIGN PROSTATIC HYPERPLASIA WITHOUT LOW 05/28/2016 SHANELL BEAL MD, Ot 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 05/28/2016 SHANELL BEAL MD, Ot Z86.73 PRSNL HX OF TIA (TIA), AND CEREB INFRC W 05/28/2016 SHANELL BEAL MD, Ot Z95.1 PRESENCE OF AORTOCORONARY BYPASS GRAFT 05/31/2016 SHANELL BEAL MD, Ot C91.10 CHRONIC LYMPHOCYTIC LEUK OF B-CELL TYPE 05/31/2016 SHANELL BEAL MD, Ot D72.820 LYMPHOCYTOSIS (SYMPTOMATIC) 05/31/2016 SHANELL BEAL MD, Ot E11.9 TYPE 2 DIABETES MELLITUS WITHOUT COMPLIC 05/31/2016 SHANELL BEAL MD, Ot I10 ESSENTIAL (PRIMARY) HYPERTENSION 07/13/2016 SHANELL BEAL MD, Ot 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, UNSPECIFIED, UNSPE 07/13/2016 SHANELL BEAL MD, Ot E11.9 TYPE 2 DIABETES MELLITUS WITHOUT COMPLIC 07/13/2016 SHANELL BEAL MD, Ot E78.00 PURE HYPERCHOLESTEROLEMIA, UNSPECIFIED 07/13/2016 SHANELL BEAL MD, Ot I10 ESSENTIAL (PRIMARY) HYPERTENSION 07/13/2016 SHANELL BEAL MD, Ot I25.10 ATHSCL HEART DISEASE OF [place] CORONARY 07/13/2016 SHANELL BEAL MD, Ot N40.0 BENIGN PROSTATIC HYPERPLASIA WITHOUT LOW 07/13/2016 SHANELL BEAL MD, Ot 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 07/13/2016 SHANELL BEAL MD, Ot Z86.73 PRSNL HX OF TIA (TIA), AND CEREB INFRC W 07/13/2016 SHANELL BEAL MD Ot Z95.1 PRESENCE OF AORTOCORONARY BYPASS GRAFT 08/25/2016 SHANELL BEAL MD, Ot 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, UNSPECIFIED, UNSPE 08/25/2016 SHANELL BEAL MD Ot E11.9 TYPE 2 DIABETES MELLITUS WITHOUT COMPLIC 08/25/2016 SHANELL BEAL MD Ot E78.00 PURE HYPERCHOLESTEROLEMIA, UNSPECIFIED 08/25/2016 SHANELL BEAL MD Ot I10 ESSENTIAL (PRIMARY) HYPERTENSION 08/25/2016 SHANELL BEAL MD Ot I25.10 ATHSCL HEART DISEASE OF [place] CORONARY 08/25/2016 SHANELL BEAL MD, Ot N40.0 BENIGN PROSTATIC HYPERPLASIA WITHOUT LOW 08/25/2016 SHANELL BEAL MD Ot Z79.899 OTHER DETENTION (CURRENT) DRUG THERAPY 08/25/2016 SHANELL BEAL MD, Ot Z86.73 PRSNL HX OF TIA (TIA), AND CEREB INFRC W 08/25/2016 SHANELL BEAL MD Ot Z95.1 PRESENCE OF AORTOCORONARY BYPASS GRAFT 10/08/2016 SHANELL BEAL MD, Ot 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, UNSPECIFIED, UNSPE 10/08/2016 SHANELL BEAL MD, Ot E11.9 TYPE 2 DIABETES MELLITUS WITHOUT COMPLIC 10/08/2016 SHANELL BEAL MD, Ot E78.00 PURE HYPERCHOLESTEROLEMIA, UNSPECIFIED 10/08/2016 SHANELL BEAL MD Ot I10 ESSENTIAL (PRIMARY) HYPERTENSION 10/08/2016 SHANELL BEAL MD Ot I25.10 ATHSCL HEART DISEASE OF [place] CORONARY 10/08/2016 SHANELL BEAL MD, Ot N40.0 BENIGN PROSTATIC HYPERPLASIA WITHOUT LOW 10/08/2016 SHANELL BEAL MD Ot Z79.899 OTHER DETENTION (CURRENT) DRUG THERAPY 10/08/2016 SHANELL BEAL MD, Ot Z86.73 PRSNL HX OF TIA (TIA), AND CEREB INFRC W 10/08/2016 SHANELL BEAL MD Ot Z95.1 PRESENCE OF AORTOCORONARY BYPASS GRAFT 10/10/2016 SHANELL BEAL MD, Ot 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, UNSPECIFIED, UNSPE 10/10/2016 SHANELL BEAL MD Ot E11.9 TYPE 2 DIABETES MELLITUS WITHOUT COMPLIC 10/10/2016 SHANELL BEAL MD Ot E78.00 PURE HYPERCHOLESTEROLEMIA, UNSPECIFIED 10/10/2016 SHANELL BEAL MD Ot I10 ESSENTIAL (PRIMARY) HYPERTENSION 10/10/2016 SHANELL BEAL MD Ot I25.10 ATHSCL HEART DISEASE OF [place] CORONARY 10/10/2016 SHANELL BEAL MD, Ot N40.0 BENIGN PROSTATIC HYPERPLASIA WITHOUT LOW 10/10/2016 SHANELL BEAL MD Ot 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 10/10/2016 SHANELL BEAL MD Ot Z86.73 PRSNL HX OF TIA (TIA), AND CEREB INFRC W 10/10/2016 SHANELL BEAL MD Ot Z95.1 PRESENCE OF AORTOCORONARY BYPASS GRAFT 10/10/2016 SHANELL BEAL MD, Ot 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, UNSPECIFIED, UNSPE 10/10/2016 SHANELL BEAL MD Ot E11.9 TYPE 2 DIABETES MELLITUS WITHOUT COMPLIC 10/10/2016 SHANELL BEAL MD Ot E78.00 PURE HYPERCHOLESTEROLEMIA, UNSPECIFIED 10/10/2016 SHANELL BEAL MD Ot I10 ESSENTIAL (PRIMARY) HYPERTENSION 10/10/2016 SHANELL BEAL MD Ot I25.10 ATHSCL HEART DISEASE OF [place] CORONARY 10/10/2016 SHANELL BEAL MD Ot N40.0 BENIGN PROSTATIC HYPERPLASIA WITHOUT LOW 10/10/2016 SHANELL BEAL MD Ot Z79.899 OTHER DETENTION (CURRENT) DRUG THERAPY 10/10/2016 SHANELL BEAL MD Ot Z86.73 PRSNL HX OF TIA (TIA), AND CEREB INFRC W 10/10/2016 SHANELL BEAL MD Ot Z95.1 PRESENCE OF AORTOCORONARY BYPASS GRAFT 10/10/2016 SHANELL BEAL MD Ot 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, UNSPECIFIED, UNSPE 10/10/2016 SHANELL BEAL MD Ot E11.9 TYPE 2 DIABETES MELLITUS WITHOUT COMPLIC 10/10/2016 SHANELL BEAL MD Ot E78.00 PURE HYPERCHOLESTEROLEMIA, UNSPECIFIED 10/10/2016 SHANELL BEAL MD Ot I10 ESSENTIAL (PRIMARY) HYPERTENSION 10/10/2016 SHANELL BEAL MD Ot I25.10 ATHSCL HEART DISEASE OF [place] CORONARY 10/10/2016 SHANELL BEAL MD Ot N40.0 BENIGN PROSTATIC HYPERPLASIA WITHOUT LOW 10/10/2016 SHANELL BEAL MD Ot Z79.899 OTHER DETENTION (CURRENT) DRUG THERAPY 10/10/2016 SHANELL BEAL MD Ot Z86.73 PRSNL HX OF TIA (TIA), AND CEREB INFRC W 10/10/2016 SHANELL BEAL MD Ot Z95.1 PRESENCE OF AORTOCORONARY BYPASS GRAFT 10/10/2016 SHANELL BEAL MD, Ot 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, UNSPECIFIED, UNSPE 10/10/2016 SHANELL BEAL MD Ot E11.9 TYPE 2 DIABETES MELLITUS WITHOUT COMPLIC 10/10/2016 SHANELL BEAL MD Ot E78.00 PURE HYPERCHOLESTEROLEMIA, UNSPECIFIED 10/10/2016 SHANELL BEAL MD Ot I10 ESSENTIAL (PRIMARY) HYPERTENSION 10/10/2016 SHANELL BEAL MD Ot I25.10 ATHSCL HEART DISEASE OF [place] CORONARY 10/10/2016 SHANELL BEAL MD Ot N40.0 BENIGN PROSTATIC HYPERPLASIA WITHOUT LOW 10/10/2016 SHANELL BEAL MD Ot Z79.899 OTHER DETENTION (CURRENT) DRUG THERAPY 10/10/2016 SHANELL BEAL MD, Ot Z86.73 PRSNL HX OF TIA (TIA), AND CEREB INFRC W 10/10/2016 SHANELL BEAL MD Ot Z95.1 PRESENCE OF AORTOCORONARY BYPASS GRAFT 10/10/2016 SHANELL BEAL MD, Ot 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, UNSPECIFIED, UNSPE 10/10/2016 SHANELL BEAL MD, Ot E11.9 TYPE 2 DIABETES MELLITUS WITHOUT COMPLIC 10/10/2016 SHANELL BEAL MD Ot E78.00 PURE HYPERCHOLESTEROLEMIA, UNSPECIFIED 10/10/2016 SHANELL BEAL MD Ot I10 ESSENTIAL (PRIMARY) HYPERTENSION 10/10/2016 SHANELL BEAL MD Ot I25.10 ATHSCL HEART DISEASE OF [place] CORONARY 10/10/2016 SHANELL BEAL MD Ot N40.0 BENIGN PROSTATIC HYPERPLASIA WITHOUT LOW 10/10/2016 SHANELL BEAL MD Ot Z79.899 OTHER DETENTION (CURRENT) DRUG THERAPY 10/10/2016 SHANELL BEAL MD Ot Z86.73 PRSNL HX OF TIA (TIA), AND CEREB INFRC W 10/10/2016 SHANELL BEAL MD Ot Z95.1 PRESENCE OF AORTOCORONARY BYPASS GRAFT 10/10/2016 SHANELL BEAL MD, Ot 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, UNSPECIFIED, UNSPE 10/10/2016 SHANELL BEAL MD Ot E11.9 TYPE 2 DIABETES MELLITUS WITHOUT COMPLIC 10/10/2016 SHANELL BEAL MD, Ot E78.00 PURE HYPERCHOLESTEROLEMIA, UNSPECIFIED 10/10/2016 SHANELL BEAL MD Ot I10 ESSENTIAL (PRIMARY) HYPERTENSION 10/10/2016 SHANELL BEAL MD, Ot I25.10 ATHSCL HEART DISEASE OF [place] CORONARY 10/10/2016 SHANELL BEAL MD, Ot N40.0 BENIGN PROSTATIC HYPERPLASIA WITHOUT LOW 10/10/2016 SHANELL BEAL MD, Ot 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 10/10/2016 SHANELL BEAL MD, Ot Z86.73 PRSNL HX OF TIA (TIA), AND CEREB INFRC W 10/10/2016 SHANELL BEAL MD, Ot Z95.1 PRESENCE OF AORTOCORONARY BYPASS GRAFT 10/29/2016 JANEEN COLE BEEBE F Ot M17.0 BILATERAL PRIMARY OSTEOARTHRITIS OF KNEE 11/01/2016 COLE VERNON DO F Ot M17.0 BILATERAL PRIMARY OSTEOARTHRITIS OF KNEE 11/11/2016 SHANELL BEAL MD, Ot 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, UNSPECIFIED, UNSPE 11/11/2016 SHANELL BEAL MD, Ot E11.9 TYPE 2 DIABETES MELLITUS WITHOUT COMPLIC 11/11/2016 SHANELL BEAL MD, Ot E78.00 PURE HYPERCHOLESTEROLEMIA, UNSPECIFIED 11/11/2016 SHANELL BEAL MD, Ot I10 ESSENTIAL (PRIMARY) HYPERTENSION 11/11/2016 SHANELL BEAL MD, Ot I25.10 ATHSCL HEART DISEASE OF [place] CORONARY 11/11/2016 SHANELL BEAL MD, Ot N40.0 BENIGN PROSTATIC HYPERPLASIA WITHOUT LOW 11/11/2016 SHANELL BEAL MD, Ot Z79.899 OTHER DETENTION (CURRENT) DRUG THERAPY 11/11/2016 SHANELL BEAL MD, Ot Z86.73 PRSNL HX OF TIA (TIA), AND CEREB INFRC W 11/11/2016 SHANELL BEAL MD Ot Z95.1 PRESENCE OF AORTOCORONARY BYPASS GRAFT 01/05/2017 SHANELL BEAL MD, Ot 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, UNSPECIFIED, UNSPE 01/05/2017 SHANELL BEAL MD, Ot E11.9 TYPE 2 DIABETES MELLITUS WITHOUT COMPLIC 01/05/2017 SHANELL BEAL MD, Ot E78.00 PURE HYPERCHOLESTEROLEMIA, UNSPECIFIED 01/05/2017 SHANELL BEAL MD Ot I10 ESSENTIAL (PRIMARY) HYPERTENSION 01/05/2017 SHANELL BEAL MD Ot I25.10 ATHSCL HEART DISEASE OF [place] CORONARY 01/05/2017 SHANELL BEAL MD Ot N40.0 BENIGN PROSTATIC HYPERPLASIA WITHOUT LOW 01/05/2017 SHANELL BEAL MD Ot 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 01/05/2017 SHANELL BEAL MD Ot Z86.73 PRSNL HX OF TIA (TIA), AND CEREB INFRC W 01/05/2017 SHANELL BEAL MD Ot Z95.1 PRESENCE OF AORTOCORONARY BYPASS GRAFT 01/14/2017 STEPHANIE GARVIN MD Ot 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, UNSPECIFIED, UNSPE 01/14/2017 STEPHANIE GARVIN MD Ot E11.9 TYPE 2 DIABETES MELLITUS WITHOUT COMPLIC 01/14/2017 STEPHANIE GARVIN MD Ot E78.00 PURE HYPERCHOLESTEROLEMIA, UNSPECIFIED 01/14/2017 STEPHANIE GARVIN MD Ot I10 ESSENTIAL (PRIMARY) HYPERTENSION 01/14/2017 STEPHANIE GARVIN MD, Ot I25.10 ATHSCL HEART DISEASE OF [place] CORONARY 01/14/2017 STEPHANIE GARVIN MD Ot N40.0 BENIGN PROSTATIC HYPERPLASIA WITHOUT LOW 01/14/2017 STEPHANIE GARVIN MD Ot 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 01/14/2017 STEPHANIE GARVIN MD Ot Z86.73 PRSNL HX OF TIA (TIA), AND CEREB INFRC W 01/14/2017 STEPHANIE GARVIN MD Ot Z95.1 PRESENCE OF AORTOCORONARY BYPASS GRAFT 01/17/2017 MEERA THOMAS, NANCY R Ot 786.7 ABNORMAL CHEST SOUNDS 01/17/2017 LASHELL THOMAS FACC, ALI FACP CCDS Ot 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 01/17/2017 LASHELL THOMAS FACC, ALI FACP CCDS Ot I25.10 ATHSCL HEART DISEASE OF [place] CORONARY 01/17/2017 LASHELL THOMAS FACC, ALI FACP CCDS Ot I49.3 VENTRICULAR PREMATURE DEPOLARIZATION 01/17/2017 LASHELL THOMAS FACC, ALI FACP CCDS Ot 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 01/17/2017 LASHELL THOMAS FACC, ALI FACP CCDS Ot I25.10 ATHSCL HEART DISEASE OF [place] CORONARY 01/17/2017 LASHELL MD FACC, ALI FACP CCDS Ot I49.3 VENTRICULAR PREMATURE DEPOLARIZATION 01/17/2017 SHANELL BEAL MD Ot 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, UNSPECIFIED, UNSPE 01/17/2017 SHANELL BEAL MD Ot 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 01/17/2017 SHANELL BEAL MD, Ot 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, UNSPECIFIED, UNSPE 01/17/2017 MEERA THOMAS, NANCY Andrew Ot D72.829 ELEVATED WHITE BLOOD CELL COUNT, UNSPECI 01/17/2017 NANCY ESTES MD Ot J32.9 CHRONIC SINUSITIS, UNSPECIFIED 01/17/2017 SHANELL BEAL MD Ot C91.10 CHRONIC LYMPHOCYTIC LEUK OF B-CELL TYPE 01/17/2017 SHANELL BEAL MD, Ot D72.820 LYMPHOCYTOSIS (SYMPTOMATIC) 01/17/2017 SHANELL BEAL MD Ot E11.9 TYPE 2 DIABETES MELLITUS WITHOUT COMPLIC 01/17/2017 SHANELL BEAL MD Ot I10 ESSENTIAL (PRIMARY) HYPERTENSION 01/17/2017 STEPHANIE GARVIN MD, Ot 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, UNSPECIFIED, UNSPE 01/17/2017 STEPHANIE GARVIN MD Ot E11.9 TYPE 2 DIABETES MELLITUS WITHOUT COMPLIC 01/17/2017 STEPHANIE GARVIN MD Ot E78.00 PURE HYPERCHOLESTEROLEMIA, UNSPECIFIED 01/17/2017 STEPHANIE GARVIN MD, Ot I10 ESSENTIAL (PRIMARY) HYPERTENSION 01/17/2017 STEPHANIE GARVIN MD Ot I25.10 ATHSCL HEART DISEASE OF [place] CORONARY 01/17/2017 STEPHANIE GARVIN MD Ot N40.0 BENIGN PROSTATIC HYPERPLASIA WITHOUT LOW 01/17/2017 STEPHANIE GARVIN MD Ot Z79.899 OTHER DETENTION (CURRENT) DRUG THERAPY 01/17/2017 STEPHANIE GARVIN MD Ot Z86.73 PRSNL HX OF TIA (TIA), AND CEREB INFRC W 01/17/2017 STEPHANIE GARVIN MD, Ot Z95.1 PRESENCE OF AORTOCORONARY BYPASS GRAFT 01/18/2017 STEPHANIE GARVIN MD, Ot 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, UNSPECIFIED, UNSPE 01/18/2017 STEPHANIE GARVIN MD Ot E11.9 TYPE 2 DIABETES MELLITUS WITHOUT COMPLIC 01/18/2017 XUN MD, DARDEN-ESTEFANY Ot E78.00 PURE HYPERCHOLESTEROLEMIA, UNSPECIFIED 01/18/2017 STEPHANIE GARVIN MD Ot I10 ESSENTIAL (PRIMARY) HYPERTENSION 01/18/2017 STEPHANIE GARVIN MD Ot I25.10 ATHSCL HEART DISEASE OF [place] CORONARY 01/18/2017 STEPHANIE GARVIN MD Ot N40.0 BENIGN PROSTATIC HYPERPLASIA WITHOUT LOW 01/18/2017 STEPHANIE GARVIN MD Ot Z79.899 OTHER DETENTION (CURRENT) DRUG THERAPY 01/18/2017 STEPHANIE GARVIN MD Ot Z86.73 PRSNL HX OF TIA (TIA), AND CEREB INFRC W 01/18/2017 STEPHANIE GARVIN MD Ot Z95.1 PRESENCE OF AORTOCORONARY BYPASS GRAFT 02/11/2017 STEPHANIE GARVIN MD, Ot 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, UNSPECIFIED, UNSPE 02/11/2017 STEPHANIE GARVIN MD Ot E11.9 TYPE 2 DIABETES MELLITUS WITHOUT COMPLIC 02/11/2017 STEPHANIE GARVIN MD, Ot E78.00 PURE HYPERCHOLESTEROLEMIA, UNSPECIFIED 02/11/2017 STEPHANIE GARVIN MD Ot I10 ESSENTIAL (PRIMARY) HYPERTENSION 02/11/2017 STEPHANIE GARVIN MD Ot I25.10 ATHSCL HEART DISEASE OF [place] CORONARY 02/11/2017 STEPHANIE GARVIN MD Ot N40.0 BENIGN PROSTATIC HYPERPLASIA WITHOUT LOW 02/11/2017 STEPHANIE GARVIN MD, Ot Z79.899 OTHER DETENTION (CURRENT) DRUG THERAPY 02/11/2017 STEPHANIE GARVIN MD, Ot Z86.73 PRSNL HX OF TIA (TIA), AND CEREB INFRC W 02/11/2017 STEPHANIE GARVIN MD Ot Z95.1 PRESENCE OF AORTOCORONARY BYPASS GRAFT 02/19/2017 STEPHANIE GARVIN MD, Ot 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, UNSPECIFIED, UNSPE 02/19/2017 STEPHANIE GARVIN MD Ot E11.9 TYPE 2 DIABETES MELLITUS WITHOUT COMPLIC 02/19/2017 STEPHANIE GARVIN MD Ot E78.00 PURE HYPERCHOLESTEROLEMIA, UNSPECIFIED 02/19/2017 STEPHANIE GARVIN MD Ot I10 ESSENTIAL (PRIMARY) HYPERTENSION 02/19/2017 STEPHANIE GARVIN MD Ot I25.10 ATHSCL HEART DISEASE OF [place] CORONARY 02/19/2017 STEPHANIE GARVIN MD, Ot N40.0 BENIGN PROSTATIC HYPERPLASIA WITHOUT LOW 02/19/2017 STEPHANIE GARVIN MD, Ot 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 02/19/2017 STEPHANIE GARVIN MD, Ot Z86.73 PRSNL HX OF TIA (TIA), AND CEREB INFRC W 02/19/2017 STEPHANIE GARVIN MD, Ot Z95.1 PRESENCE OF AORTOCORONARY BYPASS GRAFT 04/25/2017 NANCY ESTES MD Ot 786.7 ABNORMAL CHEST SOUNDS 04/25/2017 LASHELL THOMAS FAC, ALI FACP CCDS Ot 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 04/25/2017 LASHELL THOMAS FACC, ALI FACP CCDS Ot I25.10 ATHSCL HEART DISEASE OF [place] CORONARY 04/25/2017 LASHELL THOMAS FACC, ALI FACP CCDS Ot I49.3 VENTRICULAR PREMATURE DEPOLARIZATION 04/25/2017 LASHELL THOMAS FACC, ALI FACP CCDS Ot 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 04/25/2017 LASHELL THOMAS FACC, ALI FACP CCDS Ot I25.10 ATHSCL HEART DISEASE OF [place] CORONARY 04/25/2017 LASHELL THOMAS FACC, ALI FACP CCDS Ot I49.3 VENTRICULAR PREMATURE DEPOLARIZATION 04/25/2017 SHANELL BEAL MD Ot 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, UNSPECIFIED, UNSPE 04/25/2017 SHANELL BEAL MD Ot 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 04/25/2017 SHANELL BEAL MD, Ot 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, UNSPECIFIED, UNSPE 04/25/2017 NANCY ESTES MD Ot D72.829 ELEVATED WHITE BLOOD CELL COUNT, UNSPECI 04/25/2017 NANCY ESTES MD Ot J32.9 CHRONIC SINUSITIS, UNSPECIFIED 04/25/2017 SHANELL BEAL MD Ot C91.10 CHRONIC LYMPHOCYTIC LEUK OF B-CELL TYPE 04/25/2017 SHANELL BEAL MD Ot D72.820 LYMPHOCYTOSIS (SYMPTOMATIC) 04/25/2017 SHANELL BEAL MD Ot E11.9 TYPE 2 DIABETES MELLITUS WITHOUT COMPLIC 04/25/2017 SHANELL BEAL MD Ot I10 ESSENTIAL (PRIMARY) HYPERTENSION 04/26/2017 STEPHANIE GARVIN MD, Ot 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, UNSPECIFIED, UNSPE 04/26/2017 STEPHANIE GARVIN MD Ot E11.9 TYPE 2 DIABETES MELLITUS WITHOUT COMPLIC 04/26/2017 STEPHANIE GARVIN MD, Ot E78.00 PURE HYPERCHOLESTEROLEMIA, UNSPECIFIED 04/26/2017 STEPHANIE GARVIN MD Ot I10 ESSENTIAL (PRIMARY) HYPERTENSION 04/26/2017 STEPHANIE GARVIN MD, Ot I25.10 ATHSCL HEART DISEASE OF [place] CORONARY 04/26/2017 STEPHANIE GARVIN MD, Ot N40.0 BENIGN PROSTATIC HYPERPLASIA WITHOUT LOW 04/26/2017 STEPHANIE GARVIN MD, Ot 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 04/26/2017 STEPHANIE GARVIN MD, Ot Z86.73 PRSNL HX OF TIA (TIA), AND CEREB INFRC W 04/26/2017 STEPHANIE GARVIN MD, Ot Z95.1 PRESENCE OF AORTOCORONARY BYPASS GRAFT 06/14/2017 STEPHANIE GARVIN MD, Ot 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, UNSPECIFIED, UNSPE 06/14/2017 STEPHANIE GARVIN MD, Ot E11.9 TYPE 2 DIABETES MELLITUS WITHOUT COMPLIC 06/14/2017 STEPHANIE GARVIN MD, Ot E78.00 PURE HYPERCHOLESTEROLEMIA, UNSPECIFIED 06/14/2017 STEPHANIE GARVIN MD Ot I10 ESSENTIAL (PRIMARY) HYPERTENSION 06/14/2017 STEPHANIE GARVIN MD, Ot I25.10 ATHSCL HEART DISEASE OF [place] CORONARY 06/14/2017 STEPHANIE GARVIN MD, Ot N40.0 BENIGN PROSTATIC HYPERPLASIA WITHOUT LOW 06/14/2017 STEPHANIE GARVIN MD, Ot 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0 BENIGN PROSTATIC HYPERPLASIA WITHOUT LOW 07/15/2017 STEPHANIE GARVIN MD Ot 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 07/15/2017 STEPHANIE GARVIN MD, Ot Z86.73 PRSNL HX OF TIA (TIA), AND CEREB INFRC W 07/15/2017 STEPHANIE GARVIN MD Ot Z95.1 PRESENCE OF AORTOCORONARY BYPASS GRAFT 07/24/2017 STEPHANIE GARVIN MD, Ot 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, UNSPECIFIED, UNSPE 07/24/2017 STEPHANIE GARVIN MD, Ot E11.9 TYPE 2 DIABETES MELLITUS WITHOUT COMPLIC 07/24/2017 STEPHANIE GARVIN MD Ot E78.00 PURE HYPERCHOLESTEROLEMIA, UNSPECIFIED 07/24/2017 STEPHANIE GARVIN MD, Ot I10 ESSENTIAL (PRIMARY) HYPERTENSION 07/24/2017 STEPHANIE GARVIN MD, Ot I25.10 ATHSCL HEART DISEASE OF [place] CORONARY 07/24/2017 STEPHANIE GARVIN MD, Ot N40.0 BENIGN PROSTATIC HYPERPLASIA WITHOUT LOW 07/24/2017 STEPHANIE GARVIN MD, Ot Z79.899 OTHER DETENTION (CURRENT) DRUG THERAPY 07/24/2017 STEPHANIE GARVIN MD, Ot Z86.73 PRSNL HX OF TIA (TIA), AND CEREB INFRC W 07/24/2017 STEPHANIE GARVIN MD Ot Z95.1 PRESENCE OF AORTOCORONARY BYPASS GRAFT Procedures There is no data. Results There is no data. Encounters ACCT No. Visit Date/Time Discharge Status Pt. Type Provider Facility Loc./Unit Complaint [id number] 07/25/2017 00:11:00 07/25/2017 23:59:59 CLS Preadmit STEPHANIE GARVIN MD [facility] ONC [id number] 07/21/2017 09:57:00 07/24/2017 00:01:00 DIS Outpatient STEPHANIE GARVIN MD [facility] ONC [id number] 01/17/2017 09:11:00 02/19/2017 00:01:00 DIS Outpatient STEPHANIE GARVIN MD [facility] ONC [id number] 10/07/2016 09:41:00 01/05/2017 00:01:00 DIS Outpatient SHANELL BEAL MD [facility] ONC [id number] 10/29/2016 13:10:00 10/29/2016 14:36:00 DIS Outpatient JANEEN BEEBECOLE [facility] REHAB B KNEE OA [id number] 05/27/2016 08:38:00 08/25/2016 00:01:00 DIS Outpatient SHANELL BEAL MD [facility] ONC [id number] 05/03/2016 07:51:00 05/03/2016 23:59:59 CLS Outpatient SHANELL BEAL MD [facility] RAD MONOCLONAL B-CELL LYMPHOCYTOSIS [id number] 02/12/2016 09:07:00 04/12/2016 00:01:00 DIS Outpatient SHANELL BEAL MD [facility] ONC [id number] 12/30/2015 09:17:00 01/05/2016 00:01:00 DIS Outpatient SHANELL BEAL MD [facility] ONC [id number] 12/07/2015 00:08:00 12/07/2015 23:59:59 CLS Preadmit NANCY ESTES MD [facility] 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, ELEVATED WHITE BLOOD CELL COUNT [id number] 09/13/2015 08:50:00 12/06/2015 00:01:00 DIS Outpatient NANCY ESTES MD [facility] 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, ELEVATED WHITE BLOOD CELL COUNT [id number] 10/29/2015 13:32:00 10/29/2015 23:59:59 CLS Outpatient SHANELL BEAL MD [facility] RAD CEREBELLAR STROKE [id number] 10/28/2015 08:34:00 10/28/2015 23:59:59 CLS Outpatient SHANELL BEAL MD [facility] RAD LYMPHOMA [id number] 10/02/2015 10:41:00 10/02/2015 23:59:59 CLS Outpatient LASHELL THOMAS FACC, JAMI BANDA CCDS [facility] CARD CAD,FREQUENT PVCS,CEREBELLAR STROKE [id number] 09/30/2015 08:09:00 09/30/2015 23:59:59 CLS Outpatient LASHELL THOMAS FACC, AJMI BANDA CCDS [facility] CARD CAD,FREQUENT PVCS,CEREBELLAR STROKE [id number] 09/04/2015 11:42:00 09/06/2015 11:15:00 DIS Inpatient NANCY ESTES MD [facility] 4TH LEUKOCYTOSIS;SINUSITIS; PARETHESIAS [id number] 03/14/2013 14:21:00 03/14/2013 23:59:59 CLS Outpatient NANCY ESTES MD [facility] MALU DORAN
[2017-07-28 08:38] LABS: HEMATOCRIT 36 % (40-54); HEMOGLOBIN 11.8 G/DL (13.3-17.7); MEAN CORPUSCULAR HEMOGLOBIN 29 PG (25-34); MEAN CORPUSCULAR HGB CONC 32 G/DL (32-36); MEAN CORPUSCULAR VOLUME 91 FL (80-99); MEAN PLATELET VOLUME 10.1 FL (7.4-10.4); PLATELET COUNT 126 10^3/uL (130-400); RED BLOOD COUNT 4.01 10^6/uL (4.35-5.85); RED CELL DISTRIBUTION WIDTH 15.3 % (10.0-14.5); WHITE BLOOD COUNT 23.7 10^3/uL (4.3-11.0)
--- NOTE | 2017-07-28 08:55 | Diagnostic Imaging Report ---
INDICATION: Shortness of breath and abnormal heart rhythm. Time of exam: 8:42 AM Correlation is made with prior chest from 09/04/2015. The heart is enlarged but stable. There are changes of median sternotomy and CABG. There are central congestive changes identified but no evidence of overt congestive failure. No effusion or pneumothorax is seen. IMPRESSION: Cardiomegaly and central congestion without evidence of overt failure. Dictated by: Dictated on workstation # [id number]
[2017-07-28 09:01] LABS: ALANINE AMINOTRANSFERASE 21 U/L (0-55); ALBUMIN 3.9 GM/DL (3.2-4.5); ALKALINE PHOSPHATASE 186 U/L (40-136); BILIRUBIN,TOTAL 1.1 MG/DL (0.1-1.0); BUN/CREATININE RATIO 24; CALCIUM 8.9 MG/DL (8.5-10.1); CARBON DIOXIDE 21 MMOL/L (21-32); CHLORIDE 106 MMOL/L (98-107); CREATININE SERUM 1.11 MG/DL (0.60-1.30); GFR ESTIMATED > 60; GLUCOSE 188 MG/DL (70-105); POTASSIUM 4.6 MMOL/L (3.6-5.0); SODIUM 136 MMOL/L (135-145); TOTAL PROTEIN 7.3 GM/DL (6.4-8.2)
[2017-07-28 09:29] LABS: BILIRUBIN,URINE NEGATIVE (NEGATIVE); CLARITY,URINE CLEAR; COLOR,URINE YELLOW; GLUCOSE, URINE (UA) NEGATIVE (NEGATIVE); KETONES,URINE NEGATIVE (NEGATIVE); LEUKOCYTE ESTERASE ,URINE NEGATIVE (NEGATIVE); NITRITE,URINE NEGATIVE (NEGATIVE); PH,URINE 5 (5-9); PROTEIN,URINE 2+ (NEGATIVE); UROBILINOGEN,URINE NORMAL (NORMAL)
--- NOTE | 2017-07-28 09:50 | ED Respiratory ---
General Chief Complaint: Respiratory Problems Stated Complaint: SOB Nursing Triage Note: PATIENT STARTED FEEELING SHORT OF BREATH YESTERDAY. HE HAS HISTORY OF ABNORMAL HEART RHYTHM. HE ALSO STATES HE HAD PNEUMONIA 2 WEEKS AGO. Source: patient Exam Limitations: no limitations History of Present Illness Date Seen by Provider: Jul 28, 2017 Time Seen by Provider: 09:36 Initial Comments The patient is an 82-year-old white male who presents with a chief complaint of shortness of breath. He reports that he began to notice this yesterday. He states that when [place] the [place]. When he returned to his car he felt the walk to be fatiguing with some shortness of breath. This sensation continued and this morning he noted it to be worse. There is no past history of heart attack. He had an echocardiogram in 2016 which was normal. There has been no acute chest pain. He has not noted pedal edema. He stated that 2 weeks ago he was treated as an outpatient for pneumonia. By his description he received 3 daily IM injections for what I am sure was Rocephin and then finished up with oral medications. He states that there is no fever or sweats at this time. Timing/Duration: yesterday Allergies and Home Medications Allergies Coded Allergies: No Known Drug Allergies (Unverified , 09/04/15) Home Medications Aspirin 81 Mg Tablet.dr, 81 MG PO BID, (Reported) Carvedilol Phosphate 40 Mg Cap, 40 MG PO DAILY, (Reported) Ceftriaxone Na/Dextrose,Iso 1 Gm/50 Ml Piggyback, 1 GM IV DAILY Prescribed by: MADI ESTES on 09/06/15 0822 Glipizide 10 Mg Tablet, 10 MG PO DAILY, (Reported) Lisinopril/Hydrochlorothiazide 1 Each Tablet, 1 TAB PO DAILY, (Reported) Metformin HCl 1,000 Mg Tablet, 1,000 MG PO BID, (Reported) Saxagliptin HCl 5 Mg Tablet, 5 MG PO DAILY, (Reported) Simvastatin 20 Mg Tablet, 20 MG PO HS, (Reported) Zolpidem Tartrate 5 Mg Tablet, 5 MG PO HS PRN for SLEEP, (Reported) Patient Home Medication List Home Medication List Reviewed: Yes Constitutional: see HPI EENTM: no symptoms reported Respiratory: dyspnea on exertion Cardiovascular: no symptoms reported Gastrointestinal: no symptoms reported Genitourinary: no symptoms reported Musculoskeletal: no symptoms reported Skin: no symptoms reported Psychiatric/Neurological: No Symptoms Reported Past [id number] Hx Patient Social History Alcohol Use: Denies Use Recreational Drug Use: No Smoking Status: Never a Smoker 2nd Hand Smoke Exposure: No Recent Foreign Travel: No Contact w/Someone Who Travel: No Recent Infectious Disease Expo: No Recent Hopitalizations: No Physical Abuse: No Sexual Abuse: No Immunizations Up To Date Date of Pneumonia Vaccine: Apr 08, 2015 Date of Influenza Vaccine: Apr 08, 2015 Seasonal Allergies Seasonal Allergies: No Surgeries History of Surgeries: Yes (TURP, HERNIA, SINUS, TUMOR ON BACK) Surgeries: Appendectomy Respiratory History of Respiratory Disorde: No Cardiovascular History of Cardiac Disorders: Yes (ABNORMAL RHYTHM.) Neurological History of Neurological Disord: No Reproductive System Hx Reproductive Disorders: No Gastrointestinal History of Gastrointestinal Di: No Musculoskeletal History of Musculoskeletal Dis: Yes Musculoskeletal Disorders: Arthritis Endocrine History of Endocrine Disorders: Yes Endocrine Disorders: Diabetes, Non-Insulin dep Cancer History of Cancer: No Psychosocial History of Psychiatric Problem: No Suicide Risk Score: 0 Integumentary History of Skin or Integumenta: No Blood Transfusions History of Blood Disorders: No Family Medical History Family Medial History: Patient reports no known family medical history. Physical Exam Vital Signs Vital Signs - First Documented 07/28/17 08:23 Temp 97.2 Pulse 87 Resp 25 B/P (MAP) 162/117 (132) Pulse Ox 96 O2 Delivery Room Air Capillary Refill : Less Than 3 Seconds General Appearance: mild distress Eyes: Bilateral Eye Normal Inspection HEENT: normal ENT inspection Neck: non-tender, full range of motion, supple, normal inspection, carotid bruit Respiratory: chest non-tender, no respiratory distress, no accessory muscle use , decreased breath sounds (distant) Cardiovascular: other (irregular and with prematurity's) Gastrointestinal: normal bowel sounds, non tender, soft, no organomegaly, no pulsatile mass Extremities: normal range of motion, non-tender, normal inspection, no pedal edema, no calf tenderness, normal capillary refill, pelvis stable Neurologic/Psychiatric: parakeet raiser II-XII nml as tested, no motor/sensory deficits, alert, normal mood/affect, oriented x 3 Skin: normal color, warm/dry, cyanosis, cool, diaphoresis, damp Lymphatic: no adenopathy Progress/Results/Core Measures Suspected Sepsis Recent Fever Within 48 Hours: No Infection Criteria Present: None New/Unexplained Altered Menta: No Sepsis Screen: No Definite Risk Sepsis Diagnosis: SIRS Temperature:97.2 Pulse: 87 Respiratory Rate: 25 Laboratory Tests 07/28/17 08:30: White Blood Count 23.7H Blood Pressure 162 /117 Mean: 132 Laboratory Tests 07/28/17 08:30: Creatinine 1.11, Platelet Count 126L, Total Bilirubin 1.1H Results/Orders Lab Results Laboratory Tests Test 07/28/17 08:30 07/28/17 09:18 Range/Units White Blood Count 23.7 H 4.3-11.0 10^3/uL Red Blood Count 4.01 L 4.35-5.85 10^6/uL Hemoglobin 11.8 L 13.3-17.7 G/DL Hematocrit 36 L 40-54 % Mean Corpuscular Volume 91 80-99 FL Mean Corpuscular Hemoglobin 29 25-34 PG Mean Corpuscular Hemoglobin Concent 32 32-36 G/DL Red Cell Distribution Width 15.3 H 10.0-14.5 % Platelet Count 126 L 130-400 10^3/uL Mean Platelet Volume 10.1 7.4-10.4 FL Neutrophils (%) (Auto) 42-75 % Lymphocytes (%) (Auto) 12-44 % Monocytes (%) (Auto) 0-12 % Eosinophils (%) (Auto) 0-10 % Basophils (%) (Auto) 0-10 % Neutrophils # (Auto) 1.8-7.8 X 10^3 Lymphocytes # (Auto) 1.0-4.0 X 10^3 Monocytes # (Auto) 0.0-1.0 X 10^3 Eosinophils # (Auto) 0.0-0.3 10^3/uL Basophils # (Auto) 0.0-0.1 10^3/uL Sodium Level 136 135-145 MMOL/L Potassium Level 4.6 3.6-5.0 MMOL/L Chloride Level 106 98-107 MMOL/L Carbon Dioxide Level 21 21-32 MMOL/L Anion Gap 9 5-14 MMOL/L Blood Urea Nitrogen 27 H 7-18 MG/DL Creatinine 1.11 0.60-1.30 MG/DL Estimat Glomerular Filtration Rate > 60 BUN/Creatinine Ratio 24 Glucose Level 188 H 70-105 MG/DL Calcium Level 8.9 8.5-10.1 MG/DL Total Bilirubin 1.1 H 0.1-1.0 MG/DL Aspartate Amino Transf (AST/SGOT) 28 5-34 U/L Alanine Aminotransferase (ALT/SGPT) 21 0-55 U/L Alkaline Phosphatase 186 H 40-136 U/L B-Type Natriuretic Peptide 652.0 H <100.0 PG/ML Total Protein 7.3 6.4-8.2 GM/DL Albumin 3.9 3.2-4.5 GM/DL Urine Color YELLOW Urine Clarity CLEAR Urine pH 5 5-9 Urine Specific [place] 1.025 H 1.016-1.022 Urine Protein 2+ H NEGATIVE Urine Glucose (UA) NEGATIVE NEGATIVE Urine Ketones NEGATIVE NEGATIVE Urine Nitrite NEGATIVE NEGATIVE Urine Bilirubin NEGATIVE NEGATIVE Urine Urobilinogen NORMAL NORMAL MG/DL Urine Leukocyte Esterase NEGATIVE NEGATIVE Urine RBC (Auto) 1+ H NEGATIVE Urine RBC NONE /HPF Urine WBC 0-2 /HPF Urine Squamous Epithelial Cells 10-25 H /HPF Urine Renal Epithelial Cells NONE /HPF Urine Crystals NONE /LPF Urine Bacteria TRACE /HPF Urine Casts PRESENT /LPF Urine Hyaline Casts 0-2 H /LPF Urine Mucus NEGATIVE /LPF Urine Culture Indicated NO My Orders Orders - NATTY WALKER MD Cbc With Automated Diff (07/28/17 08:16) Comprehensive Metabolic Panel (07/28/17 08:16) Ua Culture If Indicated (07/28/17 08:16) Chest 1 View, Ap/Pa Only (07/28/17 08:16) Ekg Tracing (07/28/17 08:16) BNP (07/28/17 09:39) Vital Signs/I&O Vital Sign - Last 12Hours 07/28/17 08:23 Temp 97.2 Pulse 87 Resp 25 B/P (MAP) 162/117 (132) Pulse Ox 96 O2 Delivery Room Air Capillary Refill : Less Than 3 Seconds Blood Pressure Mean: 132 Departure Impression Impression: Primary Impression: pulmonary edema Disposition: ADMITTED INPATIENT Condition: Stable/Unchanged Admissions Decision to Admit Reason: Admit from ER (General) Decision to Admit/Date: Jul 28, 2017 Time/Decision to Admit Time: 10:32 Departure-Patient Inst. Referrals: NANCY ESTES MD (PCP/Family) Primary Care Physician NATTY WALKER MD Jul 28, 2017 09:50
[2017-07-28 10:05] LABS: WBC,URINE 0-2 /HPF
[2017-07-28 10:06] LABS: BACTERIA,URINE TRACE /HPF; HYALINE CASTS, URINE 0-2 /LPF
[2017-07-28 11:10] VITALS: BP 146/67
[2017-07-28] MEDS ORDERED: FUROSEMIDE 40 MG/4 ML INJ (LASIX) IVP NR (11:37)
--- OUTSIDE RECORDS SUMMARY | 2017-07-28 12:16 | XMS REPORT | Continuity of Care Document ---
Author Author [facility] Organization [facility] Address Unknown Phone Unavailable Allergies Active Description Code Type Severity Reaction Onset Reported/Identified Relationship to Patient Clinical Status Yes No Known Drug Allergies [id number] Drug Allergy Unknown N/A 09/04/2015 Medications There is no data. 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 10/01/2015 LASHELL THOMAS FACC, JAMI FACP CCDS Ot I25.10 ATHSCL HEART DISEASE OF [place] CORONARY 10/01/2015 LASHELL THOMAS FACC, JAMI FACP CCDS Ot I49.3 VENTRICULAR PREMATURE DEPOLARIZATION 10/03/2015 LASHELL THOMAS FACC, ALI FACP CCDS Ot 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 10/03/2015 LASHELL THOMAS FACC, ALI FACP CCDS Ot I25.10 ATHSCL HEART DISEASE OF [place] CORONARY 10/03/2015 LASHELL THOMAS FACC, ALI FACP CCDS Ot I49.3 VENTRICULAR PREMATURE DEPOLARIZATION 10/03/2015 LASHELL THOMAS FACC, ALI FACP CCDS Ot 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 10/03/2015 LASHELL THOMAS FACC, ALI FACP CCDS Ot I25.10 ATHSCL HEART DISEASE OF [place] CORONARY 10/03/2015 LASHELL THOMAS FACC, ALI FACP CCDS Ot I49.3 VENTRICULAR PREMATURE DEPOLARIZATION 10/06/2015 LASHELL THOMAS FACC, ALI FACP CCDS Ot 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 10/06/2015 LASHELL THOMAS FACBrendon, ALI FACP CCDS Ot I25.10 ATHSCL HEART DISEASE OF [place] CORONARY 10/06/2015 LASHELL THOMAS FACC, ALI FACP [...] CCDS Ot I25.10 ATHSCL HEART DISEASE OF [place] CORONARY 10/07/2015 LASHELL THOMAS FACC, ALI FACP CCDS Ot I49.3 VENTRICULAR PREMATURE DEPOLARIZATION 10/07/2015 LASHELL THOMAS FACC, ALI FACP CCDS Ot 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 10/07/2015 LASHELL THOMAS FACC, ALI FACP CCDS Ot I25.10 ATHSCL HEART DISEASE OF [place] CORONARY 10/07/2015 LASHELL THOMAS FACC, ALI FACP CCDS Ot I49.3 VENTRICULAR PREMATURE DEPOLARIZATION 10/13/2015 NANCY ESTES MD R Ot D72.829 ELEVATED WHITE BLOOD CELL COUNT, UNSPECI 10/13/2015 NANCY ESTES MD R Ot J32.9 CHRONIC SINUSITIS, UNSPECIFIED 10/28/2015 LASHELL THOMAS [facility], ALI FACP CCDS Ot 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 10/28/2015 LASHELL THOMAS [facility], [facility] CCDS Ot I25.10 ATHSCL HEART DISEASE OF [place] CORONARY 10/28/2015 LASHELL THOMAS [facility], ALI FACP CCDS Ot I49.3 VENTRICULAR PREMATURE DEPOLARIZATION 10/28/2015 LASHELL THOMAS [facility], ALI FACP CCDS Ot 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 10/28/2015 LASHELL THOMAS [facility], ALI FACP CCDS Ot I25.10 ATHSCL HEART DISEASE OF [place] CORONARY 10/28/2015 LASHELL THOMAS [facility], [facility] CCDS Ot I49.3 VENTRICULAR PREMATURE DEPOLARIZATION 10/28/2015 [...] MD, Ot I25.10 ATHSCL HEART DISEASE OF [place] CORONARY 11/14/2015 SHANELL BEAL MD, Ot N40.0 ENLARGED PROSTATE WITHOUT LOWER URINARY 11/14/2015 SHANELL BEAL MD Ot R22.0 LOCALIZED SWELLING, MASS AND LUMP, HEAD 11/14/2015 SHANELL BEAL MD Ot Z79.899 OTHER GAUGE MAKER (CURRENT) DRUG THERAPY 11/14/2015 SHANELL BEAL MD, [...] CCDS Ot I25.10 ATHSCL HEART DISEASE OF [place] CORONARY 11/14/2015 LASHELL THOMAS FACC, ALI FACP CCDS Ot I49.3 VENTRICULAR PREMATURE DEPOLARIZATION 11/14/2015 LASHELL THOMAS FACC, ALI FACP CCDS Ot 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 11/14/2015 LASHELL THOMAS FACC, ALI FACP CCDS Ot I25.10 ATHSCL HEART DISEASE OF [place] CORONARY 11/14/2015 LASHELL THOMAS FACC, ALI FACP CCDS Ot I49.3 VENTRICULAR PREMATURE DEPOLARIZATION 11/14/2015 SHANELL BEAL MD, Ot D72.820 LYMPHOCYTOSIS (SYMPTOMATIC) 11/14/2015 SHANELL BEAL MD Ot E11.9 TYPE 2 DIABETES MELLITUS WITHOUT COMPLIC 11/14/2015 SHANELL BEAL MD, Ot E78.0 PURE HYPERCHOLESTEROLEMIA 11/14/2015 SHANELL BEAL MD Ot I10 ESSENTIAL (PRIMARY) HYPERTENSION 11/14/2015 SHANELL BEAL MD, Ot I25.10 ATHSCL HEART DISEASE OF [place] CORONARY 11/14/2015 SHANELL BEAL MD Ot N40.0 ENLARGED PROSTATE WITHOUT LOWER URINARY 11/14/2015 SHANELL BEAL MD, Ot R22.0 LOCALIZED SWELLING, MASS AND LUMP, HEAD 11/14/2015 SHANELL BEAL MD, Ot Z79.899 OTHER LONGTERM (CURRENT) DRUG THERAPY 11/14/2015 SHANELL BEAL MD, [...] CCDS Ot I25.10 ATHSCL HEART DISEASE OF [place] CORONARY 11/28/2015 LASHELL HASKINSC, ALI FACP CCDS Ot I49.3 VENTRICULAR PREMATURE DEPOLARIZATION 11/28/2015 LASHELL THOMAS FACC, ALI FACP CCDS Ot 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 11/28/2015 LASHELL THOMAS FACC, ALI FACP CCDS Ot I25.10 ATHSCL HEART DISEASE OF [place] CORONARY 11/28/2015 LASHELL HASKINSC, ALI FACP CCDS Ot I49.3 VENTRICULAR PREMATURE DEPOLARIZATION 11/28/2015 SHANELL BEAL MD Ot D72.820 LYMPHOCYTOSIS (SYMPTOMATIC) 11/28/2015 SHANELL BEAL MD Ot E11.9 TYPE 2 DIABETES MELLITUS WITHOUT COMPLIC 11/28/2015 SHANELL BEAL MD Ot E78.0 PURE HYPERCHOLESTEROLEMIA 11/28/2015 SHANELL BEAL MD Ot I10 ESSENTIAL (PRIMARY) HYPERTENSION 11/28/2015 SHANELL BEAL MD Ot I25.10 ATHSCL HEART DISEASE OF [place] CORONARY 11/28/2015 SHANELL BEAL MD Ot N40.0 ENLARGED PROSTATE WITHOUT LOWER URINARY 11/28/2015 SHANELL BEAL MD Ot R22.0 LOCALIZED SWELLING, MASS AND LUMP, HEAD 11/28/2015 SHANELL BEAL MD, Ot Z79.899 OTHER LONGTERM (CURRENT) DRUG THERAPY 11/28/2015 SHANELL BEAL MD, [...] CCDS Ot I25.10 ATHSCL HEART DISEASE OF [place] CORONARY 11/28/2015 LASHELL THOMAS FACC, ALI FACP CCDS Ot I49.3 VENTRICULAR PREMATURE DEPOLARIZATION 11/28/2015 LASHELL THOMAS FACC, ALI FACP CCDS Ot 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 11/28/2015 LASHELL THOMAS FACC, ALI FACP CCDS Ot I25.10 ATHSCL HEART DISEASE OF [place] CORONARY 11/28/2015 LASHELL HASKINS, ALI FACP CCDS Ot I49.3 VENTRICULAR PREMATURE DEPOLARIZATION 11/28/2015 SHANELL BEAL MD, Ot D72.820 LYMPHOCYTOSIS (SYMPTOMATIC) 11/28/2015 SHANELL BEAL MD, Ot E11.9 TYPE 2 DIABETES MELLITUS WITHOUT COMPLIC 11/28/2015 SHANELL BEAL MD, Ot E78.0 PURE HYPERCHOLESTEROLEMIA 11/28/2015 SHANELL BEAL MD Ot I10 ESSENTIAL (PRIMARY) HYPERTENSION 11/28/2015 SHANELL BEAL MD, Ot I25.10 ATHSCL HEART DISEASE OF [place] CORONARY 11/28/2015 SHANELL BEAL MD, Ot N40.0 ENLARGED PROSTATE WITHOUT LOWER URINARY 11/28/2015 SHANELL BEAL MD, Ot R22.0 LOCALIZED SWELLING, MASS AND LUMP, HEAD 11/28/2015 SHANELL BEAL MD, Ot Z79.899 OTHER GAUGE MAKER (CURRENT) DRUG THERAPY 11/28/2015 SHANELL BEAL MD, [...] MD, Ot I25.10 ATHSCL HEART DISEASE OF [place] CORONARY 01/05/2016 SHANELL BEAL MD, Ot N40.0 ENLARGED PROSTATE WITHOUT LOWER URINARY 01/05/2016 SHANELL BEAL MD, Ot R22.0 LOCALIZED SWELLING, MASS AND LUMP, HEAD 01/05/2016 SHANELL BEAL MD, Ot Z79.899 OTHER GAUGE MAKER (CURRENT) DRUG THERAPY 01/05/2016 SHANELL BEAL MD, [...] MD Ot I25.10 ATHSCL HEART DISEASE OF [place] CORONARY 01/09/2016 SHANELL BEAL MD, Ot N40.0 ENLARGED PROSTATE WITHOUT LOWER URINARY 01/09/2016 SHANELL BEAL MD, Ot R22.0 LOCALIZED SWELLING, MASS AND LUMP, HEAD 01/09/2016 SHANELL BEAL MD, Ot Z79.899 OTHER LONGTERM (CURRENT) DRUG THERAPY 01/09/2016 SHANELL BEAL MD, Ot Z86.73 PRSNL HX OF TIA (TIA), AND CEREB INFRC W 01/09/2016 SHANELL BEAL MD, Ot Z95.1 PRESENCE OF AORTOCORONARY BYPASS GRAFT 01/13/2016 NANCY ESTES MD Ot 786.7 ABNORMAL CHEST SOUNDS 01/13/2016 LASHELL THOMAS FACC, ALI FACP CCDS Ot 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 01/13/2016 LASHELL THOMAS FACC, ALI FACP CCDS Ot I25.10 ATHSCL HEART DISEASE OF [place] CORONARY 01/13/2016 LASHELL THOMAS FACC, ALI FACP CCDS Ot I49.3 VENTRICULAR PREMATURE DEPOLARIZATION 01/13/2016 LASHELL THOMAS FACC, ALI FACP CCDS Ot 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 01/13/2016 LASHELL THOMAS FACC, ALI FACP CCDS Ot I25.10 ATHSCL HEART DISEASE OF [place] CORONARY 01/13/2016 LASHELL THOMAS FACC, ALI FACP [...] MD, Ot I25.10 ATHSCL HEART DISEASE OF [place] CORONARY 01/13/2016 SHANELL BEAL MD, Ot N40.0 ENLARGED PROSTATE WITHOUT LOWER URINARY 01/13/2016 SHANELL BEAL MD, Ot R22.0 LOCALIZED SWELLING, MASS AND LUMP, HEAD 01/13/2016 SHANELL BEAL MD, Ot Z79.899 OTHER GAUGE MAKER (CURRENT) DRUG THERAPY 01/13/2016 SHANELL BEAL MD, [...] MD, Ot I25.10 ATHSCL HEART DISEASE OF [place] CORONARY 01/14/2016 SHANELL BEAL MD, Ot N40.0 ENLARGED PROSTATE WITHOUT LOWER URINARY 01/14/2016 SHANELL BEAL MD, Ot R22.0 LOCALIZED SWELLING, MASS AND LUMP, HEAD 01/14/2016 SHANELL BEAL MD, Ot Z79.899 OTHER LONGTERM (CURRENT) DRUG THERAPY 01/14/2016 SHANELL BEAL MD, [...] MD Ot I25.10 ATHSCL HEART DISEASE OF [place] CORONARY 02/12/2016 LIAN MD, SHANELL K Ot N40.0 ENLARGED PROSTATE WITHOUT LOWER URINARY 02/12/2016 SHANELL BEAL MD Ot Z79.899 OTHER GAUGE MAKER (CURRENT) DRUG THERAPY 02/12/2016 SHANELL BEAL MD, [...] MD Ot I25.10 ATHSCL HEART DISEASE OF [place] CORONARY 04/12/2016 SHANELL BEAL MD, Ot N40.0 BENIGN PROSTATIC HYPERPLASIA WITHOUT LOW 04/12/2016 SHANELL BEAL MD, Ot Z79.899 OTHER LONGTERM (CURRENT) DRUG THERAPY 04/12/2016 SHANELL BEAL MD, [...] MD Ot I25.10 ATHSCL HEART DISEASE OF [place] CORONARY 04/13/2016 SHANELL BEAL MD Ot N40.0 BENIGN PROSTATIC HYPERPLASIA WITHOUT LOW 04/13/2016 SHANELL BEAL MD Ot Z79.899 OTHER LONGTERM (CURRENT) DRUG THERAPY 04/13/2016 SHANELL BEAL MD [...] CCDS Ot I25.10 ATHSCL HEART DISEASE OF [place] CORONARY 05/03/2016 LASHELL THOMAS FAC, ALI FACP CCDS Ot I49.3 VENTRICULAR PREMATURE DEPOLARIZATION 05/03/2016 LASHELL THOMAS FACC, ALI FACP CCDS Ot 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 05/03/2016 LASHELL THOMAS FAC, ALI FACP CCDS Ot I25.10 ATHSCL HEART DISEASE OF [place] CORONARY 05/03/2016 LASHELL THOMAS [facility], ALI FACP CCDS Ot I49.3 VENTRICULAR PREMATURE [...] MD, Ot I25.10 ATHSCL HEART DISEASE OF [place] CORONARY 05/03/2016 SHANELL BEAL MD, Ot N40.0 BENIGN PROSTATIC HYPERPLASIA WITHOUT LOW 05/03/2016 SHANELL BEAL MD, Ot Z79.899 OTHER GAUGE MAKER (CURRENT) DRUG THERAPY 05/03/2016 SHANELL BEAL MD, Ot Z86.73 PRSNL HX OF TIA (TIA), AND CEREB INFRC W 05/03/2016 SHANELL BEAL MD Ot Z95.1 PRESENCE OF AORTOCORONARY BYPASS GRAFT 05/03/2016 NANCY ESTES MD Ot 786.7 ABNORMAL CHEST SOUNDS 05/03/2016 LASHELL THOMAS [facility], ALI FACP CCDS Ot 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 05/03/2016 LASHELL THOMAS [facility], ALI FACP CCDS Ot I25.10 ATHSCL HEART DISEASE OF [place] CORONARY 05/03/2016 LASHELL THOMAS [facility], ALI FACP CCDS Ot I49.3 VENTRICULAR PREMATURE DEPOLARIZATION 05/03/2016 LASHELL THOMAS [facility], ALI FACP CCDS Ot 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 05/03/2016 LASHELL THOMAS [facility], ALI FACP CCDS Ot I25.10 ATHSCL HEART DISEASE OF [place] CORONARY 05/03/2016 LASHELL THOMAS [facility], ALI FACP CCDS Ot I49.3 VENTRICULAR PREMATURE [...] MD, Ot I25.10 ATHSCL HEART DISEASE OF [place] CORONARY 05/03/2016 SHANELL BEAL MD, Ot N40.0 BENIGN PROSTATIC HYPERPLASIA WITHOUT LOW 05/03/2016 SHANELL BEAL MD, Ot Z79.899 OTHER GAUGE MAKER (CURRENT) DRUG THERAPY 05/03/2016 SHANELL BEAL MD, [...] MD, Ot I25.10 ATHSCL HEART DISEASE OF [place] CORONARY 05/28/2016 SHANELL BEAL MD, Ot N40.0 BENIGN PROSTATIC HYPERPLASIA WITHOUT LOW 05/28/2016 SHANELL BEAL MD, Ot Z79.899 OTHER GAUGE MAKER (CURRENT) DRUG THERAPY 05/28/2016 SHANELL BEAL MD, [...] MD, Ot I25.10 ATHSCL HEART DISEASE OF [place] CORONARY 07/13/2016 SHANELL BEAL MD, Ot N40.0 BENIGN PROSTATIC HYPERPLASIA WITHOUT LOW 07/13/2016 SHANELL BEAL MD, Ot Z79.899 OTHER GAUGE MAKER (CURRENT) DRUG THERAPY 07/13/2016 SHANELL BEAL MD, [...] MD Ot I25.10 ATHSCL HEART DISEASE OF [place] CORONARY 08/25/2016 SHANELL BEAL MD, Ot N40.0 BENIGN PROSTATIC HYPERPLASIA WITHOUT LOW 08/25/2016 SHANELL BEAL MD Ot Z79.899 OTHER LONGTERM (CURRENT) DRUG THERAPY 08/25/2016 SHANELL BEAL MD, [...] MD Ot I25.10 ATHSCL HEART DISEASE OF [place] CORONARY 10/08/2016 SHANELL BEAL MD, Ot N40.0 BENIGN PROSTATIC HYPERPLASIA WITHOUT LOW 10/08/2016 SHANELL BEAL MD Ot Z79.899 OTHER LONGTERM (CURRENT) DRUG THERAPY 10/08/2016 SHANELL BEAL MD, [...] MD Ot I25.10 ATHSCL HEART DISEASE OF [place] CORONARY 10/10/2016 SHANELL BEAL MD, Ot N40.0 BENIGN PROSTATIC HYPERPLASIA WITHOUT LOW 10/10/2016 SHANELL BEAL MD Ot Z79.899 OTHER GAUGE MAKER (CURRENT) DRUG THERAPY 10/10/2016 SHANELL BEAL MD [...] MD Ot I25.10 ATHSCL HEART DISEASE OF [place] CORONARY 10/10/2016 SHANELL BEAL MD Ot N40.0 BENIGN PROSTATIC HYPERPLASIA WITHOUT LOW 10/10/2016 SHANELL BEAL MD Ot Z79.899 OTHER LONGTERM (CURRENT) DRUG THERAPY 10/10/2016 SHANELL BEAL MD [...] MD Ot I25.10 ATHSCL HEART DISEASE OF [place] CORONARY 10/10/2016 SHANELL BEAL MD Ot N40.0 BENIGN PROSTATIC HYPERPLASIA WITHOUT LOW 10/10/2016 SHANELL BEAL MD Ot Z79.899 OTHER LONGTERM (CURRENT) DRUG THERAPY 10/10/2016 SHANELL BEAL MD [...] MD Ot I25.10 ATHSCL HEART DISEASE OF [place] CORONARY 10/10/2016 SHANELL BEAL MD Ot N40.0 BENIGN PROSTATIC HYPERPLASIA WITHOUT LOW 10/10/2016 SHANELL BEAL MD Ot Z79.899 OTHER LONGTERM (CURRENT) DRUG THERAPY 10/10/2016 SHANELL BEAL MD, [...] MD Ot I25.10 ATHSCL HEART DISEASE OF [place] CORONARY 10/10/2016 SHANELL BEAL MD Ot N40.0 BENIGN PROSTATIC HYPERPLASIA WITHOUT LOW 10/10/2016 SHANELL BEAL MD Ot Z79.899 OTHER LONGTERM (CURRENT) DRUG THERAPY 10/10/2016 SHANELL BEAL MD [...] MD, Ot I25.10 ATHSCL HEART DISEASE OF [place] CORONARY 10/10/2016 SHANELL BEAL MD, Ot N40.0 BENIGN PROSTATIC HYPERPLASIA WITHOUT LOW 10/10/2016 SHANELL BEAL MD, Ot Z79.899 OTHER GAUGE MAKER (CURRENT) DRUG THERAPY 10/10/2016 SHANELL BEAL MD, Ot Z86.73 PRSNL HX OF TIA (TIA), AND CEREB INFRC W 10/10/2016 SHANELL BEAL MD, Ot Z95.1 PRESENCE OF AORTOCORONARY BYPASS GRAFT 10/29/2016 JANEEN COLE BEEBE F Ot M17.0 BILATERAL PRIMARY OSTEOARTHRITIS OF KNEE 11/01/2016 COLE VERNON DO F Ot M17.0 BILATERAL PRIMARY OSTEOARTHRITIS OF KNEE 11/11/2016 HSANELL BEAL MD, Ot 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, UNSPECIFIED, UNSPE 11/11/2016 SHANELL BEAL MD, Ot E11.9 TYPE 2 DIABETES MELLITUS WITHOUT COMPLIC 11/11/2016 SHANELL BEAL MD, Ot E78.00 PURE HYPERCHOLESTEROLEMIA, UNSPECIFIED 11/11/2016 SHANELL BEAL MD, Ot I10 ESSENTIAL (PRIMARY) HYPERTENSION 11/11/2016 SHANELL BEAL MD, Ot I25.10 ATHSCL HEART DISEASE OF [place] CORONARY 11/11/2016 SHANELL BEAL MD, Ot N40.0 BENIGN PROSTATIC HYPERPLASIA WITHOUT LOW 11/11/2016 SHANELL BEAL MD, Ot Z79.899 OTHER LONGTERM (CURRENT) DRUG THERAPY 11/11/2016 SHANELL BEAL MD, [...] MD Ot I25.10 ATHSCL HEART DISEASE OF [place] CORONARY 01/05/2017 SHANELL BEAL MD Ot N40.0 BENIGN PROSTATIC HYPERPLASIA WITHOUT LOW 01/05/2017 SHANELL BEAL MD Ot Z79.899 OTHER GAUGE MAKER (CURRENT) DRUG THERAPY 01/05/2017 SHANELL BEAL MD [...] MD, Ot I25.10 ATHSCL HEART DISEASE OF [place] CORONARY 01/14/2017 STEPHANIE GARVIN MD Ot N40.0 BENIGN PROSTATIC HYPERPLASIA WITHOUT LOW 01/14/2017 STEPHANIE GARVIN MD Ot Z79.899 OTHER GAUGE MAKER (CURRENT) DRUG THERAPY 01/14/2017 STEPHANIE GARVIN MD [...] CCDS Ot I25.10 ATHSCL HEART DISEASE OF [place] CORONARY 01/17/2017 LASHELL THOMAS FACC, ALI FACP CCDS Ot I49.3 VENTRICULAR PREMATURE DEPOLARIZATION 01/17/2017 LASHELL THOMAS FACC, ALI FACP CCDS Ot 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 01/17/2017 LASHELL THOMAS FACC, ALI FACP CCDS Ot I25.10 ATHSCL HEART DISEASE OF [place] CORONARY 01/17/2017 LASHELL MD FACC, ALI FACP [...] MD Ot I25.10 ATHSCL HEART DISEASE OF [place] CORONARY 01/17/2017 STEPHANIE GARVIN MD Ot N40.0 BENIGN PROSTATIC HYPERPLASIA WITHOUT LOW 01/17/2017 STEPHANIE GARVIN MD Ot Z79.899 OTHER LONGTERM (CURRENT) DRUG THERAPY 01/17/2017 STEPHANIE GARVIN MD [...] MD Ot I25.10 ATHSCL HEART DISEASE OF [place] CORONARY 01/18/2017 STEPHANIE GARVIN MD Ot N40.0 BENIGN PROSTATIC HYPERPLASIA WITHOUT LOW 01/18/2017 STEPHANIE GARVIN MD Ot Z79.899 OTHER LONGTERM (CURRENT) DRUG THERAPY 01/18/2017 STEPHANIE GARVIN MD [...] MD Ot I25.10 ATHSCL HEART DISEASE OF [place] CORONARY 02/11/2017 STEPHANIE GARVIN MD Ot N40.0 BENIGN PROSTATIC HYPERPLASIA WITHOUT LOW 02/11/2017 STEPHANIE GARVIN MD, Ot Z79.899 OTHER LONGTERM (CURRENT) DRUG THERAPY 02/11/2017 STEPHANIE GARVIN MD, [...] MD Ot I25.10 ATHSCL HEART DISEASE OF [place] CORONARY 02/19/2017 STEPHANIE GARVIN MD, Ot N40.0 BENIGN PROSTATIC HYPERPLASIA WITHOUT LOW 02/19/2017 STEPHANIE GARVIN MD, Ot Z79.899 OTHER GAUGE MAKER (CURRENT) DRUG THERAPY 02/19/2017 STEPHANIE GARVIN MD, Ot Z86.73 PRSNL HX OF TIA (TIA), AND CEREB INFRC W 02/19/2017 STEPHANIE GARVIN MD, Ot Z95.1 PRESENCE OF AORTOCORONARY BYPASS GRAFT 04/25/2017 NANCY ESTES MD Ot 786.7 ABNORMAL CHEST SOUNDS 04/25/2017 LASHELL THOMAS FAC, ALI FACP CCDS Ot 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 04/25/2017 LASHELL THOMAS FACC, ALI FACP CCDS Ot I25.10 ATHSCL HEART DISEASE OF [place] CORONARY 04/25/2017 LASHELL THOMAS FACC, ALI FACP CCDS Ot I49.3 VENTRICULAR PREMATURE DEPOLARIZATION 04/25/2017 LASHELL THOMAS FACC, ALI FACP CCDS Ot 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 04/25/2017 LASHELL THOMAS FACC, ALI FACP CCDS Ot I25.10 ATHSCL HEART DISEASE OF [place] CORONARY 04/25/2017 LASHELL THOMAS FACC, ALI FACP [...] MD, Ot I25.10 ATHSCL HEART DISEASE OF [place] CORONARY 04/26/2017 STEPHANIE GARVIN MD, Ot N40.0 BENIGN PROSTATIC HYPERPLASIA WITHOUT LOW 04/26/2017 STEPHANIE GARVIN MD, Ot Z79.899 OTHER GAUGE MAKER (CURRENT) DRUG THERAPY 04/26/2017 STEPHANIE GARVNI MD, Ot Z86.73 PRSNL HX OF TIA [...] MD, Ot I25.10 ATHSCL HEART DISEASE OF [place] CORONARY 06/14/2017 STEPHANIE GARVIN MD, Ot N40.0 BENIGN PROSTATIC HYPERPLASIA WITHOUT LOW 06/14/2017 STEPHANIE GARVIN MD, Ot Z79.899 OTHER GAUGE MAKER (CURRENT) DRUG THERAPY 06/14/2017 STEPHANIE GARVIN MD, [...] MD, Ot I25.10 ATHSCL HEART DISEASE OF [place] CORONARY 07/15/2017 STEPHANIE GARVIN MD, Ot N40.0 BENIGN PROSTATIC HYPERPLASIA WITHOUT LOW 07/15/2017 STEPHANIE GARVIN MD Ot Z79.899 OTHER GAUGE MAKER (CURRENT) DRUG THERAPY 07/15/2017 STEPHANIE GARVIN MD, [...] MD, Ot I25.10 ATHSCL HEART DISEASE OF [place] CORONARY 07/24/2017 STEPHANIE GARVIN MD, Ot N40.0 BENIGN PROSTATIC HYPERPLASIA WITHOUT LOW 07/24/2017 STEPHANIE GARVIN MD, Ot Z79.899 OTHER LONGTERM (CURRENT) DRUG THERAPY 07/24/2017 STEPHANIE GARVIN MD, Ot Z86.73 PRSNL HX OF TIA (TIA), AND CEREB INFRC W 07/24/2017 STEPHANIE GARVIN MD Ot Z95.1 PRESENCE OF AORTOCORONARY BYPASS GRAFT Procedures There is no data. Results There is no data. Encounters ACCT No. Visit Date/Time Discharge Status Pt. Type Provider Facility Loc./Unit Complaint [id number] 07/25/2017 00:11:00 07/25/2017 23:59:59 CLS Preadmit STEPHANIE GARVIN MD [facility] ONC [id number] 07/21/2017 09:57:00 07/24/2017 00:01:00 DIS Outpatient STEPHANIE GARVIN MD [facility] ONC [id number] 01/17/2017 09:11:00 02/19/2017 00:01:00 DIS Outpatient STEPHAINE GARVIN MD [facility] ONC [id number] 10/07/2016 09:41:00 01/05/2017 00:01:00 DIS Outpatient SHANELL BEAL MD [facility] ONC [id number] 10/29/2016 13:10:00 10/29/2016 14:36:00 DIS Outpatient JANEEN BEEBECOLE [facility] REHAB B KNEE OA [id number] 05/27/2016 08:38:00 08/25/2016 00:01:00 DIS Outpatient SHANELL BEAL MD [facility] ONC [id number] 05/03/2016 07:51:00 05/03/2016 23:59:59 CLS Outpatient SHANELL BEAL MD [facility] RAD MONOCLONAL B-CELL LYMPHOCYTOSIS [id number] 02/12/2016 09:07:00 04/12/2016 00:01:00 DIS Outpatient SHANELL BEAL MD [facility] ONC [id number] 12/30/2015 09:17:00 01/05/2016 00:01:00 DIS Outpatient SHANELL BEAL MD [facility] ONC [id number] 12/07/2015 00:08:00 12/07/2015 23:59:59 CLS Preadmit NANCY ESTES MD [facility] 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, ELEVATED WHITE BLOOD CELL COUNT [id number] 09/13/2015 08:50:00 12/06/2015 00:01:00 DIS Outpatient NANCY ESTES MD [facility] 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, ELEVATED WHITE BLOOD CELL COUNT [id number] 10/29/2015 13:32:00 10/29/2015 23:59:59 CLS Outpatient SHANELL BEAL MD [facility] RAD CEREBELLAR STROKE [id number] 10/28/2015 08:34:00 10/28/2015 23:59:59 CLS Outpatient SHANELL BEAL MD [facility] RAD LYMPHOMA [id number] 10/02/2015 10:41:00 10/02/2015 23:59:59 CLS Outpatient LASHELL THOMAS FACC, JAMI BANDA CCDS [facility] CARD CAD,FREQUENT PVCS,CEREBELLAR STROKE [id number] 09/30/2015 08:09:00 09/30/2015 23:59:59 CLS Outpatient LASHELL THOMAS FACC, JAMI BANDA CCDS [facility] CARD CAD,FREQUENT PVCS,CEREBELLAR STROKE [id number] 09/04/2015 11:42:00 09/06/2015 11:15:00 DIS Inpatient NANCY ESTES MD [facility] 4TH LEUKOCYTOSIS;SINUSITIS; PARETHESIAS [id number] 03/14/2013 14:21:00 03/14/2013 23:59:59 CLS Outpatient NANCY ESTES MD [facility] MALU DORAN
--- NOTE | 2017-07-28 13:30 | History & Physical-Hospitalist ---
HPI History of Present Illness: HPI/Chief Complaint Pt is an 82yoCM with a PMH of HTN, NIDDMII, CAD s/p CABG, TIA, and possibly CLL who presented to the ER with CC of SOB. He [place] the [place] [employer] [place] for lunch and then when he was walking to his car he became very short of breath. When he rested it improved but he still remained somewhat SOB. It improved with rest. He awoke this morning with similar symptoms so went to his PCP's walkin clinic. He was sent to the ER from there for evaluation. He was found in the ER to be in a-fib with rates in the 80s. He denies a history of a-fib. He denies nay cough, fever, sick contacts. He denies any chest pain. He did not eat anything different than normal or increased sodium intake. He otherwise has been feeling well. Source: patient Date Seen 07/28/17 Time Seen by Provider: 13:10 Attending Physician Manuel Yuen MD PCP Jayro Montiel MD Referring Physician Date of Admission Jul 28, 2017 at 10:37 Home Medications & Allergies Home Medications Reviewed patient Home Medication Reconciliation Form Allergies Allergies Coded Allergies No Known Drug Allergies (Unverified09/04/15) Past Dkodszu-Iqvxex-Ycxggs Hx Patient Social History Marrital Status: Employed/Student: retired Alcohol Use: Denies Use Recreational Drug Use: No Smoking Status: Never a Smoker 2nd Hand Smoke Exposure: No Physical Abuse Screen: No Sexual Abuse: No Recent Foreign Travel: No Contact w/other who traveled: No Recent Hopitalizations: No Recent Infectious Disease Expo: No Immunizations Up To Date Date of Pneumonia Vaccine: Mar 23, 2017 Date of Influenza Vaccine: Mar 30, 2017 Seasonal Allergies Seasonal Allergies: No Surgeries Yes (TURP, HERNIA, SINUS, TUMOR ON BACK,BIPASS X3) Appendectomy, CABG, Transurethral Resection Respiratory No Cardiovascular Yes (ABNORMAL RHYTHM.) Coronary Artery Disease, Hypertension Neurological Yes TIA Reproductive System Hx Reproductive Disorders: No Genitourinary Yes Prostate Problems Gastrointestinal No Musculoskeletal Yes Arthritis Endocrine History of Endocrine Disorders: Yes Endocrine Disorders: Diabetes, Non-Insulin dep Are Your Blood Sugars Over 250: No HEENT History of HEENT Disorders: Yes Hearing Impairment: Hard of Hearing, Bilateral Hearing Aide Cancer Yes Lymphoma Psychosocial History of Psychiatric Problem: No Integumentary History of Skin or Integumenta: No Blood Transfusions History of Blood Disorders: No Family Medical History Other Significan Family Hx: Patient adopted- unaware of family history Family Hx: Patient reports no known family medical history. Review of Systems Constitutional: No chills, No fever EENTM: No blurred vision, No double vision, No nose congestion, No throat pain Respiratory: No cough, dyspnea on exertion, No orthopnea, No phlegm, short of breath Cardiovascular: No chest pain, No edema, Hx of Intervention, No palpitations Gastrointestinal: No abdominal pain, No constipation, No diarrhea, No nausea, No vomiting Genitourinary: No dysuria, No frequency Musculoskeletal: No joint pain, No muscle pain Skin: No lesions, No rash Psychiatric/Neurological: Denies Headache, Denies Numbness, Denies Tingling Physical Exam Physical Exam Vital Signs Vital Signs - First Documented 07/28/17 08:23 Temp 97.2 Pulse 87 Resp 25 B/P (MAP) 162/117 (132) Pulse Ox 96 O2 Delivery Room Air Capillary Refill : Less Than 3 Seconds General Appearance: No Apparent Distress, WD/WN HEENT: PERRL/EOMI, Moist Mucous Membranes, No Scleral Icterus (L), No Scleral Icterus (R) Neck: Non Tender, Supple, No JVD, No Thyromegaly Respiratory: Lungs Clear, No Respiratory Distress Cardiovascular: No Murmur, Irregularly Irregular Gastrointestinal: Normal Bowel Sounds, Non Tender, Soft Extremity: Normal Capillary Refill, No Calf Tenderness, No Pedal Edema Neurologic/Psychiatric: Alert, Oriented x3, No Motor/Sensory Deficits, Normal Mood/Affect Skin: Normal Color, Warm/Dry Results Results/Procedures Lab Laboratory Tests 07/28/17 08:30 Radiology Date of Exam:07/28/17 CHEST 1 VIEW, AP/PA ONLY INDICATION: Shortness of breath and abnormal heart rhythm. Time of exam: 8:42 AM Correlation is made with prior chest from 09/04/2015. The heart is enlarged but stable. There are changes of median sternotomy and CABG. There are central congestive changes identified but no evidence of overt congestive failure. No effusion or pneumothorax is seen. IMPRESSION: Cardiomegaly and central congestion without evidence of overt failure. Assessment/Plan Admission Diagnosis a-fib Admission Status: Observation Diagnosis/Problems Diagnosis/Problems (1) Dyspnea Status: Acute Assessment & Plan: Presumed heart failure Echo ordered to evaluate for underlying cardiomyopathy Continue Lasix Monitor I/Os Qualifiers: Qualified Codes: R06.09 - Other forms of dyspnea (2) Atrial fibrillation Status: Acute Assessment & Plan: Newly diagnosed Cardiology consulted, appreciate recs CHAVAS-6 Eliquis for anticoagulation- 2.5mg BID for age Monitor on telemetry Continue Coreg Echo ordered Qualifiers: Qualified Codes: I48.91 - Unspecified atrial fibrillation (3) CAD (coronary artery disease) Status: Chronic Assessment & Plan: s/p CABG Cardiology consulted, appreciate recs Continue home meds Qualifiers: Qualified Codes: I25.10 - Atherosclerotic heart disease of [place] coronary artery without angina pectoris (4) CLL (chronic lymphocytic leukemia) Status: Chronic Assessment & Plan: Dr Pacheco consulted, appreciate recs has persistent leukocytosis No treatment that he knows of Also had sphenoid mass noted on MRI from 10/29/[address] Lorenz who follow patient as outpatient (5) Essential (primary) hypertension Assessment & Plan: Continue home medications (6) Non-insulin dependent type 2 diabetes mellitus Assessment & Plan: Continue Tradjenta and Glipizide Hold metformin while inpatient (7) H/O: CVA (cerebrovascular accident) Assessment & Plan: No deficits Remote history On statin and ASA (8) Prophylactic measure Assessment & Plan: Eliquis Heart Healthy Diet Saline MANUEL Tesfaye MD Jul 28, 2017 1:29 pm
[2017-07-28] MEDS ORDERED: METF500T4 PO (13:36)
[2017-07-28] MEDS ORDERED: ACET-2469 PO (13:41)
--- NOTE | 2017-07-28 14:47 | Consultation-Cardiology ---
HPI-Cardiology Cardiology Consultation: Date of Consultation 07/28/17 Time Seen by Provider: 13:00 Date of Admission Attending Physician Elvie Yuen MD Admitting Physician Jayro Montiel MD Consulting Physician JAMI LOBO MD, MA, FACP, FACC, FSCAI, CCDS HPI: Chief Complaint: Shortness of breath 82 yo man with progressive shortness of breath or approx 2 days. Also had been noting increasing ankle swelling. Denies palp or cp or syncope. Notes gen malaise Review of Systems-Cardiology Review of Systems Constitutional: malaise, tiredness, No weight loss, No weight gain Eyes: No vision change Ears/Nose/Throat: No ear discharge, No nasal drainage, No recent hearing loss Respiratory: As described under HPI Cardiovascular: As described under HPI Gastrointestinal: No constipation, No diarrhea, No nausea, No vomiting Genitourinary: No dysuria, No hematuria Musculoskeletal: back pain (chronic) Skin: No rash, No ulcerations Psychiatric/Neurological: No seizure, No focal weakness, No syncope Hematologic: No bleeding abnormalities DZG-Eodxfs-Noiazy Hx Patient Social History Marrital Status: Employed/Student: retired Alcohol Use: Denies Use Recreational Drug Use: No Smoking Status: Never a Smoker 2nd Hand Smoke Exposure: No Recent Foreign Travel: No Recent Infectious Disease Expo: No Hospitalization with Isolation: Denies Physical Abuse Screen: No Sexual Abuse: No Immunizations Up To Date Date of Pneumonia Vaccine: Mar 23, 2017 Date of Influenza Vaccine: Mar 30, 2017 Past Medical History PMH As described under Assessment. Family Medical History Family Medical History: does not report fam h/o early CAD or SCD Family History: Patient reports no known family medical history. Allergies and Home Medications Allergies Coded Allergies: No Known Drug Allergies (Unverified , 09/04/15) Home Medications Acetaminophen/Diphenhydramine 1 Each Tablet, 1 TAB PO HS PRN for SLEEP, ( Reported) Aspirin 81 Mg Tablet.dr, 81 MG PO BID, (Reported) Carvedilol Phosphate 40 Mg Cap, 40 MG PO DAILY, (Reported) Glipizide 10 Mg Tablet, 10 MG PO DAILY, (Reported) Metformin HCl 500 Mg Tablet, 500 MG PO BID WITH MEALS, (Reported) Saxagliptin HCl 5 Mg Tablet, 5 MG PO DAILY, (Reported) Simvastatin 20 Mg Tablet, 20 MG PO HS, (Reported) Patient Home Medication List Home Medication List Reviewed: Yes Physical Exam-Cardiology Physical Exam Vital Signs/I&O Vital Sign - Last 12Hours 07/28/17 07/28/17 07/28/17 07/28/17 08:23 11:01 11:10 14:57 Temp 97.2 97.2 96.9 Pulse 87 87 61 Resp 25 25 24 B/P (MAP) 162/117 (132) 162/117 (132) 146/67 (93) Pulse Ox 96 96 95 O2 Delivery Room Air Room Air Room Air 07/28/17 16:23 Temp 97.3 Pulse 70 Resp 22 B/P (MAP) 153/69 (97) Pulse Ox 96 O2 Delivery Room Air Capillary Refill : Less Than 3 Seconds Constitutional: AAO x 3, well-developed, well-nourished HEENT: PERRL, EOMI, No xanthelasmas are seen Neck: No carotid bruit, carotid pulses are 2 + bilaterally, with good upstrokes Respiratory: No accessory muscle use, other (fair to good air entry; a few basal rales) Cardiovascular: irregularly irregular, S1 and S2, systolic murmur (2/6 SARA at card base) Gastrointestinal: No tender, soft, No guarding, No rebound, audible bowel sounds Extremities: No clubbing, No cyanosis, significant edema (mild bilat edema) Neurologic/Psychiatric: grossly intact, power is 5/5 both on sides Skin: No rash on exposed areas, No ulcerations on exposed areas Lymphatic: no adenopathy Data Review Labs Laboratory Tests 07/28/17 08:30: White Blood Count 23.7H, Red Blood Count 4.01L, Hemoglobin 11.8L, Hematocrit 36L , Mean Corpuscular Volume 91, Mean Corpuscular Hemoglobin 29, Mean Corpuscular Hemoglobin Concent 32, Red Cell Distribution Width 15.3H, Platelet Count 126L, Mean Platelet Volume 10.1, Neutrophils (%) (Auto) , Lymphocytes (%) (Auto) , Monocytes (%) (Auto) , Eosinophils (%) (Auto) , Basophils (%) (Auto) , Neutrophils # (Auto) , Lymphocytes # (Auto) , Monocytes # (Auto) , Eosinophils # (Auto) , Basophils # (Auto) , Sodium Level 136, Potassium Level 4.6, Chloride Level 106, Carbon Dioxide Level 21, Anion Gap 9, Blood Urea Nitrogen 27H, Creatinine 1.11, Estimat Glomerular Filtration Rate > 60, BUN/Creatinine Ratio 24, Glucose Level 188H, Calcium Level 8.9, Total Bilirubin 1.1H, Aspartate Amino Transf (AST/SGOT) 28, Alanine Aminotransferase (ALT/SGPT) 21, Alkaline Phosphatase 186H, B-Type Natriuretic Peptide 652.0H, Total Protein 7.3, Albumin 3.9 07/28/17 09:18: Urine Color YELLOW, Urine Clarity CLEAR, Urine pH 5, Urine Specific [place] 1.025H, Urine Protein 2+H, Urine Glucose (UA) NEGATIVE, Urine Ketones NEGATIVE, Urine Nitrite NEGATIVE, Urine Bilirubin NEGATIVE, Urine Urobilinogen NORMAL, Urine Leukocyte Esterase NEGATIVE, Urine RBC (Auto) 1+H, Urine RBC NONE, Urine WBC 0-2, Urine Squamous Epithelial Cells 10-25H, Urine Renal Epithelial Cells NONE, Urine Crystals NONE, Urine Bacteria TRACE, Urine Casts PRESENT, Urine Hyaline Casts 0-2H, Urine Mucus NEGATIVE, Urine Culture Indicated NO Laboratory Tests 07/28/17 08:30 A/P-Cardiology Assessment/Admission Diagnosis PAF, first documented on an ECG of 07/28/17 that shows a fib with frequent PVCs w/ o VT CAD, s/p CABG in or around 2006 at [facility], by Dr Ocampo. Left internal thoracic artery to the anteriror descending coronary artery and segments of non-reverse saphenous vein to the ramus marginalis and PDA branch of the RCA MPI of 09-30-15 showed no evidence of myocardial ischmemia or infarction. LVEF 66%. Echocardiogram of 10-03-15 showed mild mitral regurug and aortic valve sclerosis without stenosis. LVEF 55-60%. 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
--- NOTE | 2017-07-28 14:54 | Oncology Consultation ---
Visit Information Visit Information Date of Admission Jul 28, 2017 at 10:37 Attending Physician Elvie Yuen MD Admitting Physician Jayro Montiel MD Chief Complaint Called to see patient for leukocytosis, SOB. Interval History Mr. Roque is a 82 year old white man with history of atypical CLL diagnosed by Dr Ramos in the past. I saw him once in a cancer center since Dr Ramos left. He had a stable disease. He presented to ER this time with SOB and was found to have CHF per CXR (cardiomegaly and central congestion). He had h/o CAD and s/p cardiac stents in the past. Since the admission, he has been treated with diuretics and he is feeling much better now. No fever/chills. No productive cough. He told me that his heart broken because of his . She 7 years ago after they had been for 50 years. "I was just lost since she passed and I had never recovered." PMH: 1. Atypical B-cell type chronic lymphocytic leukemia , doubt Hairy cell leukemia-variant (HCL-V) --- Lymphocytosis with abnormal peripheral blood immunophenotype showing a monoclonal lambda B-cell lymphoproliferative disorder expressing CD19, CD20, CD5, and CD25 but negative for CD103. with extremely dim FMC 7 and negative for CD10 and CD23. a. The repeat Bone marrow aspiration and biopsy has been performed and provided ample material for specialized testing and confirm presence of B Cell lymphoproliferative disorder as mentioned above. The results of the additional immunophenotyping for atypical CLL vs HCL-variant as discussed above favors atypical CLL . b. Repeat CT chest to further evaluate subcentimeter pulmonary nodules was done and is reported above. Left lung nodule resolved and nodules in right base are likely secondary to old granulomatous disease. d. Both Bone Marrow and Whole blood for fluorescent in situ hybridization study for t(11;14) was negative ruling out mantle cell lymphoma. e. Since patient remains asymptomatic despite the enlargement of his spleen noted on the last study and his CBC is relatively stable, he was on observation only. 2. 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 3. 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 This was in Dr Ramos's note since 09/2015 and pt has no issues so far. 4. CAD -status post CABG at age 71; followed by Dr. Wesley, Cardiology; 5. Diabetes-on glipizide and metformin, BG poorly controlled. I had a long dicussion with about this. He will get to reduce the sweets and repeat CMP in May, 2017. 6. Hypertension.Stable. 7. Comorbidities of hypercholesterolemia, arthritis, frequent PVCs, chronic hearing loss, and BPH. I consulted the patient on: 07/28/17 14:45 Time Seen by Provider: 14:45 Constitutional: no symptoms reported EENTM: no symptoms reported Respiratory: short of breath Cardiovascular: palpitations Gastrointestinal: no symptoms reported Genitourinary: no symptoms reported Musculoskeletal: no symptoms reported Skin: no symptoms reported Health Status Allergies Coded Allergies: No Known Drug Allergies (Unverified , 09/04/15) Home Medications Acetaminophen/Diphenhydramine (Tylenol Pm Ex-Strength Caplet) 1 Each Tablet, 1 TAB PO HS PRN for SLEEP, (Reported) Aspirin (Aspir 81) 81 Mg Tablet.dr, 81 MG PO BID, (Reported) Carvedilol Phosphate (Coreg Cr) 40 Mg Cap, 40 MG PO DAILY, (Reported) Glipizide (Glipizide) 10 Mg Tablet, 10 MG PO DAILY, (Reported) Metformin HCl (Metformin HCl) 500 Mg Tablet, 500 MG PO BID WITH MEALS, (Reported ) Saxagliptin HCl (Onglyza) 5 Mg Tablet, 5 MG PO DAILY, (Reported) Simvastatin (Simvastatin) 20 Mg Tablet, 20 MG PO HS, (Reported) JBF-Thxnok-Izcwgx Hx Patient Social History Marrital Status: Employed/Student: retired Alcohol Use: Denies Use Recreational Drug Use: No Smoking Status: Never a Smoker 2nd Hand Smoke Exposure: No Recent Foreign Travel: No Contact w/other who traveled: No Recent Infectious Disease Expo: No Recent Hopitalizations: No Physical Abuse Screen: No Sexual Abuse: No Immunizations Up To Date Date of Pneumonia Vaccine: Mar 23, 2017 Date of Influenza Vaccine: Mar 30, 2017 Family Medical History Family History: Patient reports no known family medical history. Physical Exam Vital Signs Vital Signs - First Documented 07/28/17 08:23 Temp 97.2 Pulse 87 Resp 25 B/P (MAP) 162/117 (132) Pulse Ox 96 O2 Delivery Room Air Capillary Refill : Less Than 3 Seconds General Appearance: No Apparent Distress HEENT: PERRL/EOMI Neck: Non Tender, Supple Respiratory: Chest Non Tender, Normal Breath Sounds, No Accessory Muscle Use, No Respiratory Distress Cardiovascular: Regular Rate, Rhythm, No Edema, No Gallop Gastrointestinal: Non Tender, Soft Extremity: Non Tender, No Calf Tenderness, No Pedal Edema Neurologic/Psychiatric: Alert, Oriented x3 Data Review Labs Laboratory Tests 07/28/17 08:30 Laboratory Tests 07/28/17 08:30: White Blood Count 23.7H, Red Blood Count 4.01L, Hemoglobin 11.8L, Hematocrit 36L , Red Cell Distribution Width 15.3H, Platelet Count 126L, Blood Urea Nitrogen 27H, Glucose Level 188H, Total Bilirubin 1.1H, Alkaline Phosphatase 186H, B- Type Natriuretic Peptide 652.0H 07/28/17 09:18: Urine Specific [place] 1.025H, Urine Protein 2+H, Urine RBC (Auto) 1+H, Urine Squamous Epithelial Cells 10-25H, Urine Hyaline Casts 0-2H Impression & Plan Impression & Plan 1. CHF with SOB, responding to diuretic treatment. Clinically improving. f/u with Dr Johnson. 2. Atypical CLL with monoclonal lambda B-cell lymphoproliferative disorder expressing CD19, CD20, CD5, and CD25 but negative for CD103. with extremely dim FMC 7 and negative for CD10 and CD23. Both Bone Marrow and Whole blood for fluorescent in situ hybridization study for t(11;14) was negative ruling out mantle cell lymphoma. Pt has been on observation since 09/2015. His blood counts are stable and no active issue at this point. I will see him next month as previously scheduled. 3. 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 4. 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 This was documented in Dr Ramos's note since 2015 and pt has no issues thus far. I would just f/u as out-pt. 5. h/o CAD -status post CABG at age 71; followed by Dr. Johnson, Cardiology. 6. Diabetes-on glipizide and metformin, BG poorly controlled at the cancer clinic when I saw him last month. His BG is better now. 6. h/o Hypertension. 7. Other comorbidities of hypercholesterolemia, arthritis, frequent PVCs, chronic hearing loss, and BPH. 8. Patient can be discharged from Hem/Onc point of view. He has the follow up appointment to see me next month. Thank you for consultation. STEPHANIE GARVIN MD Jul 28, 2017 14:54
[2017-07-28] MEDS ORDERED: PATIENT MAY USE OWN MEDS, ALL MC SCH (15:00)
[2017-07-28 16:23] VITALS: BP 153/69
[2017-07-28 20:01] VITALS: BP 133/68
[2017-07-28] MEDS: ASPIRIN E.C. 81 MG (ECOTRIN) TAB PO SCH (20:09)
[2017-07-28] MEDS: APIXABAN 2.5 MG (ELIQUIS) TABLET PO SCH (20:09)
[2017-07-28] MEDS ORDERED: SIMvastatin 20 MG (ZOCOR) TAB PO SCH (21:00)
[2017-07-28 21:02] VITALS: BP 133/68
[2017-07-28] MEDS ORDERED: RT-ALBUTEROL/IPRATROPIUM 3 ML (DUONEB) VIAL INH PRN (21:30)
[2017-07-29] VITALS: BP 140/70
[2017-07-29 04:00] VITALS: BP 138/64
[2017-07-29] MEDS ORDERED: glipiZIDE 5 MG (GLUCOTROL) TAB PO SCH (06:30)
[2017-07-29 06:38] LABS: HEMATOCRIT 35 % (40-54); HEMOGLOBIN 11.7 G/DL (13.3-17.7); MEAN CORPUSCULAR HEMOGLOBIN 30 PG (25-34); MEAN CORPUSCULAR HGB CONC 34 G/DL (32-36); MEAN CORPUSCULAR VOLUME 90 FL (80-99); MEAN PLATELET VOLUME 10.4 FL (7.4-10.4); PLATELET COUNT 111 10^3/uL (130-400); RED BLOOD COUNT 3.88 10^6/uL (4.35-5.85); RED CELL DISTRIBUTION WIDTH 15.3 % (10.0-14.5)
[2017-07-29 06:52] LABS: BUN/CREATININE RATIO 21; CALCIUM 9.1 MG/DL (8.5-10.1); CARBON DIOXIDE 24 MMOL/L (21-32); CHLORIDE 106 MMOL/L (98-107); CREATININE SERUM 1.05 MG/DL (0.60-1.30); GFR ESTIMATED > 60; GLUCOSE 168 MG/DL (70-105); POTASSIUM 4.2 MMOL/L (3.6-5.0); SODIUM 139 MMOL/L (135-145)
[2017-07-29] MEDS ORDERED: RT-ALBUTEROL/IPRATROPIUM 3 ML (DUONEB) VIAL INH SCH (08:00)
[2017-07-29 08:30] VITALS: BP 146/65
[2017-07-29] MEDS: ASPIRIN E.C. 81 MG (ECOTRIN) TAB PO SCH (08:34)
[2017-07-29] MEDS: APIXABAN 2.5 MG (ELIQUIS) TABLET PO SCH (08:34)
[2017-07-29] MEDS ORDERED: LINAGLIPTIN (TRADJENTA) 5 MG TABLET PO SCH (09:00)
[2017-07-29] MEDS ORDERED: CARVEDILOL PHOSPHATE 40 MG PO SCH (09:00)
[2017-07-29] MEDS ORDERED: FUROSEMIDE 20 MG (LASIX) TAB PO SCH (09:00)
--- NOTE | 2017-07-29 09:03 | Progress Note-Cardiology ---
Cardiology SOAP Progress Note Subjective: States he feels better this morning and wants to go home. No c/o CP, palpitations, syncope or near syncope. Objective: I&O/Vital Signs Vital Sign - Last 12Hours 07/29/17 07/29/17 07/29/17 07/29/17 04:00 07:00 08:00 08:30 Temp 97.4 97.9 Pulse 90 77 80 Resp 20 22 B/P (MAP) 138/64 (88) 146/65 (92) Pulse Ox 96 96 O2 Delivery Room Air Room Air Room Air 07/29/17 07/29/17 10:44 11:15 Pulse 80 Resp 22 B/P (MAP) 146/65 Pulse Ox 96 96 O2 Delivery Room Air Room Air Intake and Output 07/29/17 00:00 Intake Total 1100 ml Output Total 1775 ml Balance -675 ml Weight (Pounds): 198 Weight (Ounces): 4.0 Weight (Calculated Kilograms): 89.985779 Constitutional: AAO x 3, well-developed, well-nourished Respiratory: No accessory muscle use, lungs clear to auscultation Cardiovascular: irregularly irregular, S1 and S2, systolic murmur (2/6 SARA at card base) Gastrointestional: No tender, soft, No guarding, No rebound, audible bowel sounds Extremities: No clubbing, No cyanosis, No significant edema Neurologic/Psychiatric: grossly intact, power is 5/5 both on sides Skin: No rash on exposed areas, No ulcerations on exposed areas Results/Procedures: Labs Laboratory Tests 07/29/17 06:00: White Blood Count 15.0H, Red Blood Count 3.88L, Hemoglobin 11.7L, Hematocrit 35L , Mean Corpuscular Volume 90, Mean Corpuscular Hemoglobin 30, Mean Corpuscular Hemoglobin Concent 34, Red Cell Distribution Width 15.3H, Platelet Count 111L, Mean Platelet Volume 10.4, Neutrophils (%) (Auto) , Lymphocytes (%) (Auto) , Monocytes (%) (Auto) , Eosinophils (%) (Auto) , Basophils (%) (Auto) , Neutrophils # (Auto) , Lymphocytes # (Auto) , Monocytes # (Auto) , Eosinophils # (Auto) , Basophils # (Auto) , Sodium Level 139, Potassium Level 4.2, Chloride Level 106, Carbon Dioxide Level 24, Anion Gap 9, Blood Urea Nitrogen 22H, Creatinine 1.05, Estimat Glomerular Filtration Rate > 60, BUN/Creatinine Ratio 21, Glucose Level 168H, Calcium Level 9.1 07/29/17 06:10: Glucometer 189H A/P: Assessment: PAF, first documented on an ECG of 07/28/17 that shows a fib with frequent PVCs w/ o VT CAD, s/p CABG in or around 2006 at [facility], by Dr Ocampo. Left internal thoracic artery to the anterior descending coronary artery and segments of non-reverse saphenous vein to the ramus marginalis and PDA branch of the RCA MPI of 09-30-15 showed no evidence of myocardial ischemia or infarction. LVEF 66 %. Echocardiogram of 10-03-15 showed mild mitral regurug and aortic valve sclerosis without stenosis. LVEF 55-60%. 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 ECG of 09/04/15 showed LAFB and frequent PVCs Mild carotid arterial disease on carotid u/s of 12/24/16 DM II Hyperlipidemia, treated with statin therpy, and followed by Dr Tiana BECERRA Chronic hardness of hearing Atypical B-cell type chronic lymphocytic leukemia, followed by his onclologist, Dr Pacheco Plan: * BB for rate control * Apixaban for stroke prophylaxis * Diuretics for CHF * Management of leucocytosis by the Med Svce * Monitor labs * Echocardiogram - pending Physician Assessment Physician Assessment Feels better. Insists on going home. No cp or palp or syncope or shortness of breath at rest Lungs: scattered wheezes, good air entry Cor: irreg Ext: no c/c/e A&R * As documented in our note above that I updated (italics) and as noted below * I discussed his case with Dr Yuen on the phone this morning * Multiple med changes made during this admission. I explained the rationale and potential side effects to him * Outpatient f/u is advised CARL CHANG Jul 29, 2017 09:03 JAMI LOBO MD FACP FAC CCDS Jul 29, 2017 15:39
[2017-07-29] MEDS ORDERED: APIX2.5T PO (09:23)
[2017-07-29] MEDS ORDERED: FURO20TA4 PO (09:23)
--- NOTE | 2017-07-29 09:39 | Discharge Summary-Hospitalist ---
Diagnosis/Chief Complaint Date of Admission Jul 28, 2017 at 10:37 Date of Discharge Admission Diagnosis a-fib Discharge Diagnosis (1) Dyspnea Status: Acute Assessment & Plan: Presumed heart failure Echo pending Continue oral Lasix Monitor I/Os (2) Atrial fibrillation Status: Acute Assessment & Plan: Newly diagnosed Cardiology consulted, appreciate isabel CHADSVASC-6 Eliquis for anticoagulation- 2.5mg BID for age Continue Coreg Echo ordered-pending (3) CAD (coronary artery disease) Status: Chronic Assessment & Plan: s/p CABG Cardiology consulted, appreciate recs Continue home meds (4) CLL (chronic lymphocytic leukemia) Status: Chronic Assessment & Plan: Dr Garvin consulted, appreciate isabel has persistent leukocytosis No treatment that he knows of Also had sphenoid mass noted on MRI from 10/29/[address] Lorenz who follow patient as outpatient (5) Essential (primary) hypertension Assessment & Plan: Continue home medications (6) Non-insulin dependent type 2 diabetes mellitus Assessment & Plan: Continue Tradjenta and Glipizide Hold metformin while inpatient (7) H/O: CVA (cerebrovascular accident) Assessment & Plan: No deficits Remote history On statin and ASA (8) Prophylactic measure Assessment & Plan: Eliquis Heart Healthy Diet Saline Lock Discharge Summary Consultations Dr Johnson- Cardiology Dr Garvin- Oncology Discharge Physical Examination Allergies: Coded Allergies: No Known Drug Allergies (Unverified , 09/04/15) Vitals & I&Os Vital Signs Date Time Temp Pulse Resp B/P (MAP) Pulse Ox O2 Delivery O2 Flow Rate FiO2 07/29/17 10:44 96 Room Air 07/29/17 08:30 97.9 80 22 146/65 (92) Hospital Course Pt is an 82yoCM who was admitted fo dyspnea and found to be in a-fib with presumed heart failure. He was treated with IV Lasix and started on anticoagulation. His rate was well controlled throughout the admission and his symptoms resolved with diuresis. He was sent home on his Coreg and started on Eliquis. We discussed return precautions for bleeding and he is to follow up with Dr Johnson as scheduled. He was seen by Dr Garvin as well for his CLL and she will follow this and continue his sphenoid mass workup as an outpatient. He felt well on day of discharge and was requesting DC home. Labs (last 24 hrs) Laboratory Tests 07/29/17 06:00: White Blood Count 15.0H, Red Blood Count 3.88L, Hemoglobin 11.7L, Hematocrit 35L , Mean Corpuscular Volume 90, Mean Corpuscular Hemoglobin 30, Mean Corpuscular Hemoglobin Concent 34, Red Cell Distribution Width 15.3H, Platelet Count 111L, Mean Platelet Volume 10.4, Neutrophils (%) (Auto) , Lymphocytes (%) (Auto) , Monocytes (%) (Auto) , Eosinophils (%) (Auto) , Basophils (%) (Auto) , Neutrophils # (Auto) , Lymphocytes # (Auto) , Monocytes # (Auto) , Eosinophils # (Auto) , Basophils # (Auto) , Sodium Level 139, Potassium Level 4.2, Chloride Level 106, Carbon Dioxide Level 24, Anion Gap 9, Blood Urea Nitrogen 22H, Creatinine 1.05, Estimat Glomerular Filtration Rate > 60, BUN/Creatinine Ratio 21, Glucose Level 168H, Calcium Level 9.1 07/29/17 06:10: Glucometer 189H Pending Labs Laboratory Tests 07/29/17 06:00: White Blood Count 15.0, Red Blood Count 3.88, Hemoglobin 11.7, Hematocrit 35, Mean Corpuscular Volume 90, Mean Corpuscular Hemoglobin 30, Mean Corpuscular Hemoglobin Concent 34, Red Cell Distribution Width 15.3, Platelet Count 111, Mean Platelet Volume 10.4, Neutrophils (%) (Auto) , Lymphocytes (%) (Auto) , Monocytes (%) (Auto) , Eosinophils (%) (Auto) , Basophils (%) (Auto) , Neutrophils # (Auto) , Lymphocytes # (Auto) , Monocytes # (Auto) , Eosinophils # (Auto) , Basophils # (Auto) , Sodium Level 139, Potassium Level 4.2, Chloride Level 106, Carbon Dioxide Level 24, Anion Gap 9, Blood Urea Nitrogen 22, Creatinine 1.05, Estimat Glomerular Filtration Rate > 60, BUN/Creatinine Ratio 21, Glucose Level 168, Calcium Level 9.1 07/29/17 06:10: Glucometer 189 Discussion & Recommendations Discharge Planning: >30 minutes discharge planning Discharge Home Medications: Active Scripts Active Furosemide 20 Mg Tablet 20 Mg PO DAILY Eliquis (Apixaban) 2.5 Mg Tablet 2.5 Mg PO BID Reported Tylenol Pm Ex-Strength Caplet (Acetaminophen/Diphenhydramine) 1 Each Tablet 1 Tab PO HS PRN Metformin HCl 500 Mg Tablet 500 Mg PO BID WITH MEALS Glipizide 10 Mg Tablet 10 Mg PO DAILY Onglyza (Saxagliptin HCl) 5 Mg Tablet 5 Mg PO DAILY Simvastatin 20 Mg Tablet 20 Mg PO HS Coreg Cr (Carvedilol Phosphate) 40 Mg Cap 40 Mg PO DAILY Aspir 81 (Aspirin) 81 Mg Tablet.dr 81 Mg PO BID Instructions to patient/family Please see electronic discharge instructions given to patient. Clinical Quality Measures DVT/VTE Risk/Contraindication: Risk Factor Score Per Nursin RFS Level Per Nursing on Admit: 4+=Very High Copy Copies To 1: JAMI JOHNSON MD FACP FACC CCDS; NANCY ESTES MD; STEPHANIE GARVIN MD Problem Qualifiers (1) Dyspnea: Dyspnea type: dyspnea on exertion Qualified Codes: R06.09 - Other forms of dyspnea (2) Atrial fibrillation: Atrial fibrillation type: unspecified Qualified Codes: I48.91 - Unspecified atrial fibrillation (3) CAD (coronary artery disease): Coronary Disease-Associated Artery/Lesion type: unspecified vessel or lesion type [place] vs. transplanted heart: [place] heart Associated angina: without angina Qualified Codes: I25.10 - Atherosclerotic heart disease of [place] coronary artery without angina pectoris MANUEL ROSAS MD Jul 29, 2017 9:39 am
--- NOTE | 2017-07-29 09:51 | Oncology Progress Note ---
Subjective Time Seen by Provider: 09:30 Subjective/Events-last exam Pt is feeling better and wants to go home. He did not have good sleep last night. Data Review Labs Laboratory Tests 07/29/17 06:00 Laboratory Tests 07/28/17 08:30: White Blood Count 23.7H, Red Blood Count 4.01L, Hemoglobin 11.8L, Hematocrit 36L , Red Cell Distribution Width 15.3H, Platelet Count 126L, Blood Urea Nitrogen 27H, Glucose Level 188H, Total Bilirubin 1.1H, Alkaline Phosphatase 186H, B- Type Natriuretic Peptide 652.0H 07/28/17 09:18: Urine Specific [place] 1.025H, Urine Protein 2+H, Urine RBC (Auto) 1+H, Urine Squamous Epithelial Cells 10-25H, Urine Hyaline Casts 0-2H 07/29/17 06:00: White Blood Count 15.0H, Red Blood Count 3.88L, Hemoglobin 11.7L, Hematocrit 35L , Red Cell Distribution Width 15.3H, Platelet Count 111L, Blood Urea Nitrogen 22H, Glucose Level 168H 07/29/17 06:10: Glucometer 189H Laboratory Tests 07/29/17 06:00 Physical Exam Vital Signs Vital Signs - First Documented 07/28/17 08:23 Temp 97.2 Pulse 87 Resp 25 B/P (MAP) 162/117 (132) Pulse Ox 96 O2 Delivery Room Air Capillary Refill : Less Than 3 Seconds General Appearance: No Apparent Distress HEENT: PERRL/EOMI Neck: Non Tender, Supple Respiratory: Lungs Clear, No Accessory Muscle Use, No Respiratory Distress Cardiovascular: No JVD, Irregularly Irregular Extremity: Non Tender, No Calf Tenderness, No Pedal Edema Neurologic/Psychiatric: Alert, Oriented x3 Impression & Plan Impression & Plan 1. CHF, AFib with SOB and cardiomegaly, responding to diuretic treatment and rate control medication. Clinically improving. Agree with Dr Johnson for lower dose of Eliquis 2.5mg bid along with ASA 81mg bid. Pt will be at higher risk bleeding in view of CLL, marginal Plt and Hb. I will closely monitor him in the clinic and see him in 3 weeks at the cancer center on 08/25/17 at 9am. I have given him the appointment card today. I also told patient to call if any issues. 2. 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 with extremely dim FMC 7 and negative for CD10 and CD23. Both Bone Marrow and Whole blood for fluorescent in situ hybridization study for t(11;14 ) was negative ruling out mantle cell lymphoma. Pt has been on observation since 09/2015. His blood counts are marginal but stable and no active issue nor sign of disease progression at this point. 3. 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 4. 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 This was documented in Dr Ramos's note since 2015 and pt has no issues thus far. I would just f/u as out-pt. 5. h/o CAD -status post CABG at age 71; followed by Dr. Johnson, Cardiology. 6. Diabetes-on glipizide and metformin, BG poorly controlled at the cancer clinic when I saw him last month. His BG is better now. 6. h/o Hypertension. 7. Other comorbidities of hypercholesterolemia, arthritis, frequent PVCs, chronic hearing loss, and BPH. 8. Patient can be discharged from Hem/Onc point of view. He has the follow up appointment to see me 08/25/17 at 9AM. . Thank you for consultation. Clinical Quality Measures DVT/VTE Risk/Contraindication: Risk Factor Score Per Nursin RFS Level Per Nursing on Admit: 4+=Very High STEPHANIE GARVIN MD Jul 29, 2017 09:51
[2017-07-29 11:15] VITALS: BP 146/65
== END 2017-07-29 09:40 | disposition home or self-care (01) ==
LOC: EDUNIT# 08:15 → ER 08:16 → UNDOADMOB 10:37 → 4TH 10:37 → UNDODISOB 07-29 11:15
PROVIDERS: ADMIT Family Medicine; ATTEND Family Medicine
DX: I48.0 Paroxysmal atrial fibrillation (principal); I25.10 Atherosclerotic heart disease of native coronary artery without angina pectoris; I08.0 Rheumatic disorders of both mitral and aortic valves; I10 Essential (primary) hypertension; E11.9 Type 2 diabetes mellitus without complications; E78.5 Hyperlipidemia, unspecified; C91.10 Chronic lymphocytic leukemia of B-cell type not having achieved remission; M19.91 Primary osteoarthritis, unspecified site; N40.0 Benign prostatic hyperplasia without lower urinary tract symptoms; Z79.84 Long term (current) use of oral hypoglycemic drugs; Z79.899 Other long term (current) drug therapy; Z86.73 Personal history of transient ischemic attack (TIA), and cerebral infarction without residual deficits; Z95.1 Presence of aortocoronary bypass graft
CPT/HCPCS: 36415; 71045; 80048; 80053; 81000; 82962; 83880; 85025; 93005; 93306; 94640; 94760; G0378

== ENCOUNTER 2017-10-20 09:33 | Outpatient (RCR) | payer MEDICARE, OTHER ==
[2017-08-03 09:36] LABS: BASOPHILS # (AUTO) 0.1 10^3/uL (0.0-0.1); BASOPHILS % (AUTO) 1 % (0-10); EOSINOPHILS # (AUTO) 0.2 10^3/uL (0.0-0.3); EOSINOPHILS % (AUTO) 1 % (0-10); HEMATOCRIT 36 % (40-54); HEMOGLOBIN 11.7 G/DL (13.3-17.7); MEAN CORPUSCULAR HEMOGLOBIN 30 PG (25-34); MEAN CORPUSCULAR HGB CONC 33 G/DL (32-36); MEAN CORPUSCULAR VOLUME 91 FL (80-99); MEAN PLATELET VOLUME 10.4 FL (7.4-10.4); PLATELET COUNT 123 10^3/uL (130-400); RED BLOOD COUNT 3.94 10^6/uL (4.35-5.85); RED CELL DISTRIBUTION WIDTH 15.4 % (10.0-14.5); WHITE BLOOD COUNT 19.4 10^3/uL (4.3-11.0)
[2017-08-10 09:29] LABS: MEAN PLATELET VOLUME 10.4 FL (7.4-10.4); RED BLOOD COUNT 4.02 10^6/uL (4.35-5.85); WHITE BLOOD COUNT 20.9 10^3/uL (4.3-11.0)
[2017-08-17 09:32] LABS: HEMATOCRIT 34 % (40-54); HEMOGLOBIN 11.3 G/DL (13.3-17.7); MEAN CORPUSCULAR HEMOGLOBIN 30 PG (25-34); MEAN CORPUSCULAR HGB CONC 33 G/DL (32-36); MEAN CORPUSCULAR VOLUME 91 FL (80-99); MEAN PLATELET VOLUME 9.5 FL (7.4-10.4); PLATELET COUNT 99 10^3/uL (130-400); RED BLOOD COUNT 3.76 10^6/uL (4.35-5.85); WHITE BLOOD COUNT 18.2 10^3/uL (4.3-11.0)
[2017-08-25 09:06] LABS: HEMATOCRIT 36 % (40-54); HEMOGLOBIN 11.7 G/DL (13.3-17.7); MEAN CORPUSCULAR HEMOGLOBIN 30 PG (25-34); MEAN CORPUSCULAR HGB CONC 33 G/DL (32-36); MEAN CORPUSCULAR VOLUME 91 FL (80-99); MEAN PLATELET VOLUME 9.9 FL (7.4-10.4); PLATELET COUNT 109 10^3/uL (130-400); RED BLOOD COUNT 3.91 10^6/uL (4.35-5.85); RED CELL DISTRIBUTION WIDTH 15.1 % (10.0-14.5); WHITE BLOOD COUNT 19.9 10^3/uL (4.3-11.0)
[2017-10-19 09:09] LABS: HEMATOCRIT 37 % (40-54); MEAN CORPUSCULAR HEMOGLOBIN 29 PG (25-34); MEAN CORPUSCULAR HGB CONC 32 G/DL (32-36); MEAN CORPUSCULAR VOLUME 91 FL (80-99); MEAN PLATELET VOLUME 10.2 FL (7.4-10.4); PLATELET COUNT 105 10^3/uL (130-400); RED BLOOD COUNT 4.08 10^6/uL (4.35-5.85); WHITE BLOOD COUNT 18.4 10^3/uL (4.3-11.0)
[2017-10-19 09:35] LABS: ALANINE AMINOTRANSFERASE 24 U/L (0-55); ALKALINE PHOSPHATASE 224 U/L (40-136); BILIRUBIN,TOTAL 0.6 MG/DL (0.1-1.0); BUN/CREATININE RATIO 17; CALCIUM 9.2 MG/DL (8.5-10.1); CARBON DIOXIDE 23 MMOL/L (21-32); CHLORIDE 106 MMOL/L (98-107); CREATININE SERUM 1.09 MG/DL (0.60-1.30); GFR ESTIMATED > 60; GLUCOSE 233 MG/DL (70-105); POTASSIUM 4.6 MMOL/L (3.6-5.0); SODIUM 138 MMOL/L (135-145); TOTAL PROTEIN 7.4 GM/DL (6.4-8.2)
[~2017-10-20 09:33] MED LIST changes: +ACET-2469 PO; +APIX2.5T PO; +FURO20TA4 PO; -METF1000 PO; +METF10002 PO; +METF500T5 PO
== END 2017-11-01 | disposition home or self-care (01) ==
LOC: ONC 09:33
PROVIDERS: ATTEND Internal Medicine Hematology & Oncology
DX: C85.90 Non-Hodgkin lymphoma, unspecified, unspecified site (principal); I25.10 Atherosclerotic heart disease of native coronary artery without angina pectoris; E11.9 Type 2 diabetes mellitus without complications; I10 Essential (primary) hypertension; E78.00 Pure hypercholesterolemia, unspecified; N40.0 Benign prostatic hyperplasia without lower urinary tract symptoms; Z86.73 Personal history of transient ischemic attack (TIA), and cerebral infarction without residual deficits; Z95.1 Presence of aortocoronary bypass graft; Z79.899 Other long term (current) drug therapy
CPT/HCPCS: 36415; 80053; 85025; 85027; 99213

== ENCOUNTER → 2017-11-08 | Outpatient (CLI) | payer MEDICARE, OTHER ==
[~2017-11-08] VITALS: Ht 167.6 cm; Wt 83.9 kg
[~2017-11-08] MED LIST changes: +CATHETER FLUSH 10 ML SYR IV PRN; +REGADENOSON 0.4 MG/5 ML SYR (LEXISCAN) IV ONE
[2017-11-08 09:19] VITALS: BP 141/75
[2017-11-08 09:22] VITALS: BP 141/83
--- NOTE | 2017-11-10 14:06 | STRESS TEST ---
DATE OF SERVICE: 11/08/2017 RESTING AND POST REGADENOSON TECHNETIUM-99M TETROFOSMIN SPECT CT IMAGING ORDERING PHYSICIAN: Namita Pardo APRN. PRIMARY PHYSICIAN: Jayro Montiel MD. CLINICAL DIAGNOSES: Coronary artery disease. Baseline images were carried out after injection of 10.74 mCi of technetium-99m Tetrofosmin. This was followed by 0.4 mg regadenoson and 29.3 mCi of technetium- 99m Tetrofosmin for stress imaging. The electrocardiogram showed atrial fibrillation throughout the study. Isolated premature ventricular contractions were seen. The electrocardiogram did not change with the regadenoson infusion. The patient noted some shortness of breath and headache following regadenoson infusion, which resolved shortly after the infusion. Review of images at rest and following stress does not indicate any significant perfusion defects consistent with significant myocardial ischemia or infarction. Gating could not be carried out due to an irregular heart rate. CONCLUSIONS: 1. No evidence of any significant myocardial ischemia or infarction on this study. 2. Atrial fibrillation throughout the study. 3. Gating could not be carried out due to an irregular heart rate. Job ID: [id number] DocumentID: [id number] Dictated Date: 11/10/2017 10:44:22 Varnisher Apprentice Date: 11/10/2017 14:06:05 Dictated By: JAMI LOBO MD, MA, FACP, FACC, MTDD
== END ==
LOC: CARD 07:32
PROVIDERS: ATTEND Nurse Practitioner Family
DX: I25.10 Atherosclerotic heart disease of native coronary artery without angina pectoris (principal); I10 Essential (primary) hypertension; E78.5 Hyperlipidemia, unspecified; I63.9 Cerebral infarction, unspecified

== ENCOUNTER 2018-01-12 09:09 | Outpatient (RCR) | payer MEDICARE, OTHER ==
[~2018-01-12 09:09] MED LIST changes: -CATHETER FLUSH 10 ML SYR IV PRN; +METF-397 PO; +METF-399 PO; -METF10002 PO; -METF500T5 PO; -REGADENOSON 0.4 MG/5 ML SYR (LEXISCAN) IV ONE
== END 2018-01-20 | disposition home or self-care (01) ==
LOC: ONC 09:09
PROVIDERS: ATTEND Internal Medicine Hematology & Oncology
DX: C91.10 Chronic lymphocytic leukemia of B-cell type not having achieved remission (principal); I25.10 Atherosclerotic heart disease of native coronary artery without angina pectoris; E11.9 Type 2 diabetes mellitus without complications; I10 Essential (primary) hypertension; E78.00 Pure hypercholesterolemia, unspecified; N40.0 Benign prostatic hyperplasia without lower urinary tract symptoms; Z86.73 Personal history of transient ischemic attack (TIA), and cerebral infarction without residual deficits; Z95.1 Presence of aortocoronary bypass graft; Z79.899 Other long term (current) drug therapy
CPT/HCPCS: 99213

== ENCOUNTER 2018-04-27 08:38 | Outpatient (RCR) | payer MEDICARE, OTHER ==
[2018-04-24 11:36] LABS: HEMATOCRIT 40 % (40-54); MEAN CORPUSCULAR HEMOGLOBIN 30 PG (25-34); MEAN CORPUSCULAR HGB CONC 33 G/DL (32-36); MEAN CORPUSCULAR VOLUME 93 FL (80-99); MEAN PLATELET VOLUME 10.2 FL (7.4-10.4); PLATELET COUNT 108 10^3/uL (130-400); RED CELL DISTRIBUTION WIDTH 15.1 % (10.0-14.5); WHITE BLOOD COUNT 15.8 10^3/uL (4.3-11.0)
[2018-04-24 11:56] LABS: ALANINE AMINOTRANSFERASE 22 U/L (0-55); ALBUMIN 4.2 GM/DL (3.2-4.5); ALKALINE PHOSPHATASE 240 U/L (40-136); BILIRUBIN,TOTAL 1.2 MG/DL (0.1-1.0); BUN/CREATININE RATIO 15; CALCIUM 9.7 MG/DL (8.5-10.1); CARBON DIOXIDE 24 MMOL/L (21-32); CHLORIDE 103 MMOL/L (98-107); CREATININE SERUM 1.07 MG/DL (0.60-1.30); GFR ESTIMATED > 60; GLUCOSE 208 MG/DL (70-105); POTASSIUM 4.2 MMOL/L (3.6-5.0); SODIUM 138 MMOL/L (135-145); TOTAL PROTEIN 7.9 GM/DL (6.4-8.2)
== END 2018-07-23 | disposition home or self-care (01) ==
LOC: ONC 08:38
PROVIDERS: ATTEND Internal Medicine Hematology & Oncology
DX: C91.10 Chronic lymphocytic leukemia of B-cell type not having achieved remission (principal); I25.10 Atherosclerotic heart disease of native coronary artery without angina pectoris; E11.9 Type 2 diabetes mellitus without complications; I10 Essential (primary) hypertension; E78.00 Pure hypercholesterolemia, unspecified; N40.0 Benign prostatic hyperplasia without lower urinary tract symptoms; Z86.73 Personal history of transient ischemic attack (TIA), and cerebral infarction without residual deficits; Z95.1 Presence of aortocoronary bypass graft; Z79.899 Other long term (current) drug therapy
CPT/HCPCS: 36415; 80053; 85025; 99213

== ENCOUNTER 2018-10-19 08:45 | Outpatient (RCR) | payer MEDICARE, OTHER ==
[2018-08-21 10:26] LABS: HEMATOCRIT 37 % (40-54); HEMOGLOBIN 11.8 G/DL (13.3-17.7); MEAN CORPUSCULAR HEMOGLOBIN 30 PG (25-34); MEAN CORPUSCULAR HGB CONC 32 G/DL (32-36); MEAN CORPUSCULAR VOLUME 93 FL (80-99); MEAN PLATELET VOLUME 9.8 FL (7.4-10.4); PLATELET COUNT 122 10^3/uL (130-400); RED CELL DISTRIBUTION WIDTH 14.6 % (10.0-14.5); WHITE BLOOD COUNT 16.2 10^3/uL (4.3-11.0)
[2018-08-21 10:43] LABS: ALANINE AMINOTRANSFERASE 21 U/L (0-55); ALBUMIN 3.8 GM/DL (3.2-4.5); ALKALINE PHOSPHATASE 220 U/L (40-136); BILIRUBIN,TOTAL 0.8 MG/DL (0.1-1.0); BUN/CREATININE RATIO 14; CALCIUM 9.5 MG/DL (8.5-10.1); CARBON DIOXIDE 22 MMOL/L (21-32); CHLORIDE 105 MMOL/L (98-107); CREATININE SERUM 1.11 MG/DL (0.60-1.30); GFR ESTIMATED > 60; GLUCOSE 184 MG/DL (70-105); POTASSIUM 4.3 MMOL/L (3.6-5.0); SODIUM 139 MMOL/L (135-145); TOTAL PROTEIN 7.5 GM/DL (6.4-8.2)
[2018-08-24 09:47] LABS: HEMATOCRIT 35 % (40-54); HEMOGLOBIN 11.6 G/DL (13.3-17.7); MEAN CORPUSCULAR HEMOGLOBIN 31 PG (25-34); MEAN CORPUSCULAR HGB CONC 33 G/DL (32-36); MEAN CORPUSCULAR VOLUME 93 FL (80-99); MEAN PLATELET VOLUME 10.3 FL (7.4-10.4); PLATELET COUNT 116 10^3/uL (130-400); RED CELL DISTRIBUTION WIDTH 14.4 % (10.0-14.5); WHITE BLOOD COUNT 20.2 10^3/uL (4.3-11.0)
[2018-08-25 09:02] LABS: ATYPICAL LYMPHOCYTES 59 %; BAND NEUTROPHILS 0 %; BASOPHILS % (MANUAL) 0 %; EOSINOPHILS % (MANUAL) 0 %; LYMPHOCYTES % (MANUAL) 20 %; MONOCYTES % (MANUAL) 3 %; NEUTROPHILS % (MANUAL) 18 %; RBC MORPH NORMAL
[2018-09-11 12:04] LABS: HEMATOCRIT 37 % (40-54); HEMOGLOBIN 12.1 G/DL (13.3-17.7); MEAN CORPUSCULAR HEMOGLOBIN 30 PG (25-34); MEAN CORPUSCULAR HGB CONC 33 G/DL (32-36); MEAN CORPUSCULAR VOLUME 91 FL (80-99); PLATELET COUNT 104 10^3/uL (130-400); RED CELL DISTRIBUTION WIDTH 14.6 % (10.0-14.5); WHITE BLOOD COUNT 18.5 10^3/uL (4.3-11.0)
[2018-09-11 12:18] LABS: ALBUMIN 3.8 GM/DL (3.2-4.5); BILIRUBIN,TOTAL 0.9 MG/DL (0.1-1.0); CALCIUM 9.5 MG/DL (8.5-10.1); CREATININE SERUM 1.21 MG/DL (0.60-1.30); POTASSIUM 4.4 MMOL/L (3.6-5.0); TOTAL PROTEIN 7.4 GM/DL (6.4-8.2)
[2018-09-11 14:19] LABS: ATYPICAL LYMPHOCYTES 68 %; BAND NEUTROPHILS 0 %; BASOPHILS % (MANUAL) 0 %; EOSINOPHILS % (MANUAL) 0 %; LYMPHOCYTES % (MANUAL) 12 %; MONOCYTES % (MANUAL) 3 %; NEUTROPHILS % (MANUAL) 16 %; RBC MORPH NORMAL
[2018-10-17 08:49] LABS: HEMATOCRIT 37 % (40-54); HEMOGLOBIN 12.4 G/DL (13.3-17.7); MEAN CORPUSCULAR HEMOGLOBIN 30 PG (25-34); MEAN CORPUSCULAR HGB CONC 34 G/DL (32-36); MEAN CORPUSCULAR VOLUME 89 FL (80-99); MEAN PLATELET VOLUME 9.8 FL (7.4-10.4); PLATELET COUNT 111 10^3/uL (130-400); RED CELL DISTRIBUTION WIDTH 14.8 % (10.0-14.5)
[2018-10-17 09:10] LABS: ALBUMIN 3.9 GM/DL (3.2-4.5); BILIRUBIN,TOTAL 0.6 MG/DL (0.1-1.0); CALCIUM 9.4 MG/DL (8.5-10.1); CREATININE SERUM 1.29 MG/DL (0.60-1.30); POTASSIUM 4.7 MMOL/L (3.6-5.0); TOTAL PROTEIN 7.5 GM/DL (6.4-8.2)
[2018-10-17 10:13] LABS: ANISOCYTOSIS SLIGHT; ATYPICAL LYMPHOCYTES 37 %; BAND NEUTROPHILS 0 %; BASOPHILS % (MANUAL) 0 %; EOSINOPHILS % (MANUAL) 1 %; LYMPHOCYTES % (MANUAL) 47 %; MONOCYTES % (MANUAL) 2 %; NEUTROPHILS % (MANUAL) 13 %
== END 2018-11-19 | disposition home or self-care (01) ==
LOC: ONC 08:45
PROVIDERS: ATTEND Internal Medicine Hematology & Oncology
DX: C91.10 Chronic lymphocytic leukemia of B-cell type not having achieved remission (principal); D50.9 Iron deficiency anemia, unspecified; I25.10 Atherosclerotic heart disease of native coronary artery without angina pectoris; E11.9 Type 2 diabetes mellitus without complications; I10 Essential (primary) hypertension; E78.00 Pure hypercholesterolemia, unspecified; N40.0 Benign prostatic hyperplasia without lower urinary tract symptoms; Z86.73 Personal history of transient ischemic attack (TIA), and cerebral infarction without residual deficits; Z95.1 Presence of aortocoronary bypass graft; Z79.899 Other long term (current) drug therapy; Z79.01 Long term (current) use of anticoagulants
CPT/HCPCS: 36415; 80053; 82728; 83540; 85007; 85025; 85027; 99213

== ENCOUNTER → 2018-12-05 | Outpatient (CLI) | payer MEDICARE, OTHER | LOC: LAB 08:54 | PROVIDERS: ATTEND Family Medicine | DX: Z01.89 Encounter for other specified special examinations (principal) ==

== ENCOUNTER 2019-03-01 13:37 | Outpatient (RCR) | payer MEDICARE, OTHER ==
[2018-12-05 08:58] LABS: HEMATOCRIT 35 % (40-54); HEMOGLOBIN 11.7 G/DL (13.3-17.7); MEAN CORPUSCULAR HEMOGLOBIN 30 PG (25-34); MEAN CORPUSCULAR HGB CONC 33 G/DL (32-36); MEAN CORPUSCULAR VOLUME 89 FL (80-99); MEAN PLATELET VOLUME 9.7 FL (7.4-10.4); PLATELET COUNT 94 10^3/uL (130-400); RED CELL DISTRIBUTION WIDTH 14.6 % (10.0-14.5); WHITE BLOOD COUNT 16.4 10^3/uL (4.3-11.0)
[2018-12-05 09:23] LABS: ALBUMIN 3.8 GM/DL (3.2-4.5); BILIRUBIN,TOTAL 0.6 MG/DL (0.1-1.0); CALCIUM 9.4 MG/DL (8.5-10.1); CREATININE SERUM 1.27 MG/DL (0.60-1.30); POTASSIUM 4.7 MMOL/L (3.6-5.0)
[2018-12-05 10:49] LABS: BASOPHILS % (MANUAL) 0 %; EOSINOPHILS % (MANUAL) 1 %; LYMPHOCYTES % (MANUAL) 61 %; MONOCYTES % (MANUAL) 2 %; NEUTROPHILS % (MANUAL) 15 %
[2018-12-05 10:50] LABS: REACTIVE LYMPHOCYTES 21 %
[2018-12-05 10:51] LABS: RBC MORPH NORMAL
[2019-02-27 08:48] LABS: HEMATOCRIT 37 % (40-54); HEMOGLOBIN 12.4 G/DL (13.3-17.7); MEAN CORPUSCULAR HEMOGLOBIN 29 PG (25-34); MEAN CORPUSCULAR HGB CONC 33 G/DL (32-36); MEAN CORPUSCULAR VOLUME 88 FL (80-99); MEAN PLATELET VOLUME 9.7 FL (7.4-10.4); PLATELET COUNT 103 10^3/uL (130-400); RED CELL DISTRIBUTION WIDTH 14.9 % (10.0-14.5); WHITE BLOOD COUNT 16.6 10^3/uL (4.3-11.0)
[2019-02-27 09:08] LABS: ALBUMIN 3.8 GM/DL (3.2-4.5); BILIRUBIN,TOTAL 0.6 MG/DL (0.1-1.0); CALCIUM 9.5 MG/DL (8.5-10.1); CREATININE SERUM 1.47 MG/DL (0.60-1.30); TOTAL PROTEIN 7.5 GM/DL (6.4-8.2)
== END 2019-03-05 | disposition home or self-care (01) ==
LOC: ONC 13:37
PROVIDERS: ATTEND Internal Medicine Hematology & Oncology
DX: C91.10 Chronic lymphocytic leukemia of B-cell type not having achieved remission (principal); I25.10 Atherosclerotic heart disease of native coronary artery without angina pectoris; E11.9 Type 2 diabetes mellitus without complications; I10 Essential (primary) hypertension; E78.00 Pure hypercholesterolemia, unspecified; N40.0 Benign prostatic hyperplasia without lower urinary tract symptoms; Z86.73 Personal history of transient ischemic attack (TIA), and cerebral infarction without residual deficits; Z95.1 Presence of aortocoronary bypass graft; Z79.899 Other long term (current) drug therapy
CPT/HCPCS: 36415; 80053; 82728; 83540; 85007; 85025; 85027; 99213

== ENCOUNTER 2019-05-03 09:13 | Outpatient (RCR) | payer MEDICARE, OTHER ==
[2019-04-30 09:11] LABS: HEMATOCRIT 34 % (40-54); HEMOGLOBIN 11.6 G/DL (13.3-17.7); MEAN CORPUSCULAR HEMOGLOBIN 30 PG (25-34); MEAN CORPUSCULAR HGB CONC 34 G/DL (32-36); MEAN CORPUSCULAR VOLUME 88 FL (80-99); MEAN PLATELET VOLUME 9.7 FL (7.4-10.4); PLATELET COUNT 88 10^3/uL (130-400); RED CELL DISTRIBUTION WIDTH 14.9 % (10.0-14.5); WHITE BLOOD COUNT 15.2 10^3/uL (4.3-11.0)
[2019-04-30 09:42] LABS: BILIRUBIN,TOTAL 0.6 MG/DL (0.1-1.0); CALCIUM 9.2 MG/DL (8.5-10.1); CREATININE SERUM 1.19 MG/DL (0.60-1.30); POTASSIUM 4.2 MMOL/L (3.6-5.0)
[2019-04-30 10:14] LABS: ANISOCYTOSIS SLIGHT; BAND NEUTROPHILS 0 %; BASOPHILS % (MANUAL) 0 %; EOSINOPHILS % (MANUAL) 1 %; LYMPHOCYTES % (MANUAL) 31 %; MONOCYTES % (MANUAL) 3 %; NEUTROPHILS % (MANUAL) 14 %; REACTIVE LYMPHOCYTES 51 %
[~2019-05-03 09:13] MED LIST changes: -ACET-2469 PO; +ACET-2715 PO; +LISI1TAB25 PO; -LISI1TAB8 PO; +SIMV20TA26 PO; -SIMV20TA3 PO
== END 2019-07-20 14:44 | disposition home or self-care (01) ==
LOC: ONC 09:13
PROVIDERS: ATTEND Internal Medicine Hematology & Oncology
DX: C91.10 Chronic lymphocytic leukemia of B-cell type not having achieved remission (principal); I25.10 Atherosclerotic heart disease of native coronary artery without angina pectoris; E11.9 Type 2 diabetes mellitus without complications; I10 Essential (primary) hypertension; E78.00 Pure hypercholesterolemia, unspecified; N40.0 Benign prostatic hyperplasia without lower urinary tract symptoms; Z86.73 Personal history of transient ischemic attack (TIA), and cerebral infarction without residual deficits; Z95.1 Presence of aortocoronary bypass graft; Z79.899 Other long term (current) drug therapy
CPT/HCPCS: 80053; 82728; 83540; 85007; 85025; 85027; 99213

== ENCOUNTER 2019-10-18 09:02 | Outpatient (RCR) | payer MEDICARE, OTHER ==
[2019-07-23 08:38] LABS: HEMATOCRIT 37 % (40-54); HEMOGLOBIN 11.9 G/DL (13.3-17.7); MEAN CORPUSCULAR HEMOGLOBIN 30 PG (25-34); MEAN CORPUSCULAR HGB CONC 33 G/DL (32-36); MEAN CORPUSCULAR VOLUME 90 FL (80-99); MEAN PLATELET VOLUME 9.8 FL (7.4-10.4); PLATELET COUNT 94 10^3/uL (130-400); RED CELL DISTRIBUTION WIDTH 13.8 % (10.0-14.5); WHITE BLOOD COUNT 18.4 10^3/uL (4.3-11.0)
[2019-07-23 09:01] LABS: ATYPICAL LYMPHOCYTES 31 %; BAND NEUTROPHILS 1 %; BASOPHILS % (MANUAL) 0 %; EOSINOPHILS % (MANUAL) 4 %; LYMPHOCYTES % (MANUAL) 45 %; MONOCYTES % (MANUAL) 5 %; NEUTROPHILS % (MANUAL) 14 %
[2019-07-23 09:02] LABS: ELLIPT/OVALOCYTES SLIGHT
[2019-07-23 09:03] LABS: ALBUMIN 3.8 GM/DL (3.2-4.5); BILIRUBIN,TOTAL 0.5 MG/DL (0.1-1.0); CALCIUM 9.1 MG/DL (8.5-10.1); CREATININE SERUM 1.33 MG/DL (0.60-1.30); POTASSIUM 4.5 MMOL/L (3.6-5.0); TOTAL PROTEIN 7.3 GM/DL (6.4-8.2)
[2019-10-16 09:17] LABS: HEMATOCRIT 34 % (40-54); HEMOGLOBIN 11.6 G/DL (13.3-17.7); MEAN CORPUSCULAR HEMOGLOBIN 30 PG (25-34); MEAN CORPUSCULAR HGB CONC 34 G/DL (32-36); MEAN CORPUSCULAR VOLUME 88 FL (80-99); PLATELET COUNT 106 10^3/uL (130-400); RED CELL DISTRIBUTION WIDTH 14.4 % (10.0-14.5); WHITE BLOOD COUNT 18.8 10^3/uL (4.3-11.0)
[2019-10-16 09:24] LABS: ALBUMIN 3.8 GM/DL (3.2-4.5); BILIRUBIN,TOTAL 0.6 MG/DL (0.1-1.0); CALCIUM 9.2 MG/DL (8.5-10.1); CREATININE SERUM 1.29 MG/DL (0.60-1.30); POTASSIUM 4.6 MMOL/L (3.6-5.0); TOTAL PROTEIN 7.7 GM/DL (6.4-8.2)
[2019-10-16 09:37] LABS: BAND NEUTROPHILS 0 %; BASOPHILS % (MANUAL) 0 %; EOSINOPHILS % (MANUAL) 0 %; LYMPHOCYTES % (MANUAL) 62 %; MONOCYTES % (MANUAL) 3 %; NEUTROPHILS % (MANUAL) 13 %
[2019-10-16 09:38] LABS: ANISOCYTOSIS SLIGHT; ATYPICAL LYMPHOCYTES 22 %; ELLIPT/OVALOCYTES SLIGHT
== END 2019-10-21 | disposition home or self-care (01) ==
LOC: ONC 09:02
PROVIDERS: ATTEND Internal Medicine Hematology & Oncology
DX: C91.10 Chronic lymphocytic leukemia of B-cell type not having achieved remission (principal); I25.10 Atherosclerotic heart disease of native coronary artery without angina pectoris; E11.9 Type 2 diabetes mellitus without complications; I10 Essential (primary) hypertension; E78.00 Pure hypercholesterolemia, unspecified; N40.0 Benign prostatic hyperplasia without lower urinary tract symptoms; H90.6 Mixed conductive and sensorineural hearing loss, bilateral; I49.3 Ventricular premature depolarization; M19.90 Unspecified osteoarthritis, unspecified site; D63.0 Anemia in neoplastic disease; D50.9 Iron deficiency anemia, unspecified; J32.3 Chronic sphenoidal sinusitis; Z79.899 Other long term (current) drug therapy; Z95.1 Presence of aortocoronary bypass graft; Z86.73 Personal history of transient ischemic attack (TIA), and cerebral infarction without residual deficits; Z90.49 Acquired absence of other specified parts of digestive tract; Z98.890 Other specified postprocedural states
CPT/HCPCS: 80053; 82728; 83540; 85007; 85027; 99213

== ENCOUNTER 2020-01-10 08:46 | Outpatient (RCR) | payer MEDICARE, OTHER ==
[2020-01-08 08:47] LABS: HEMATOCRIT 32 % (40-54); HEMOGLOBIN 10.6 G/DL (13.3-17.7); MEAN CORPUSCULAR HEMOGLOBIN 29 PG (25-34); MEAN CORPUSCULAR HGB CONC 33 G/DL (32-36); MEAN CORPUSCULAR VOLUME 89 FL (80-99); MEAN PLATELET VOLUME 9.8 FL (7.4-10.4); PLATELET COUNT 86 10^3/uL (130-400); WHITE BLOOD COUNT 14.9 10^3/uL (4.3-11.0)
[2020-01-08 09:07] LABS: ALBUMIN 3.6 GM/DL (3.2-4.5); BILIRUBIN,TOTAL 0.5 MG/DL (0.1-1.0); CALCIUM 9.1 MG/DL (8.5-10.1); CREATININE SERUM 1.22 MG/DL (0.60-1.30); POTASSIUM 4.7 MMOL/L (3.6-5.0); TOTAL PROTEIN 7.2 GM/DL (6.4-8.2)
[2020-01-08 10:01] LABS: ATYPICAL LYMPHOCYTES 30 %; BASOPHILS % (MANUAL) 0 %; EOSINOPHILS % (MANUAL) 1 %; LYMPHOCYTES % (MANUAL) 52 %; MONOCYTES % (MANUAL) 3 %; NEUTROPHILS % (MANUAL) 14 %
[2020-01-08 10:02] LABS: ANISOCYTOSIS SLIGHT; ELLIPT/OVALOCYTES SLIGHT
[~2020-01-10 08:46] MED LIST changes: -ACET-2715 PO; +ACET-3075 PO; -LISI1TAB25 PO; +LISI1TAB46 PO
== END 2020-04-07 | disposition home or self-care (01) ==
LOC: ONC 08:46
PROVIDERS: ATTEND Internal Medicine Hematology & Oncology
DX: C91.10 Chronic lymphocytic leukemia of B-cell type not having achieved remission (principal); I25.10 Atherosclerotic heart disease of native coronary artery without angina pectoris; E11.9 Type 2 diabetes mellitus without complications; I10 Essential (primary) hypertension; E78.00 Pure hypercholesterolemia, unspecified; N40.0 Benign prostatic hyperplasia without lower urinary tract symptoms; H90.6 Mixed conductive and sensorineural hearing loss, bilateral; I49.3 Ventricular premature depolarization; M19.90 Unspecified osteoarthritis, unspecified site; D63.0 Anemia in neoplastic disease; D50.9 Iron deficiency anemia, unspecified; J32.3 Chronic sphenoidal sinusitis; Z79.899 Other long term (current) drug therapy; Z95.1 Presence of aortocoronary bypass graft; Z86.73 Personal history of transient ischemic attack (TIA), and cerebral infarction without residual deficits; Z90.49 Acquired absence of other specified parts of digestive tract; Z98.890 Other specified postprocedural states
CPT/HCPCS: 80053; 82728; 83540; 85007; 85027; 99213

== ENCOUNTER 2020-03-23 11:21 | Emergency (ER) | payer MEDICARE, OTHER ==
[~2020-03-23] VITALS: Ht 167 cm; Wt 81.6 kg
--- NOTE | 2020-03-23 11:42 | ED Neurological Problem ---
General Stated Complaint: POSSIBLE STROKE, CONFUSION History of Present Illness Date Seen by Provider: Mar 23, 2020 Time Seen by Provider: 11:35 Initial Comments 84-year-old male sent in with confusion. Patient's confusion was that he thought today was his birthday which is tomorrow. Patient was seen by primary and sent out with possible concern of stroke. Patient is unsure why they concerns of stroke. Patient has no focal complaints weakness or deficits. Family reports that they decided he was maybe a little confused because of the day today. No other episodes of confusion described us. Patient has had some congestion for a week or 2 so they told him is likely to be tested for COVID. No reports of fevers chills cough shortness of breath nausea vomiting or other systemic compl aints. Allergies and Home Medications Allergies Coded Allergies: No Known Drug Allergies (Unverified , 09/04/15) Home Medications Acetaminophen/Diphenhydramine 1 Each Tablet, 1 TAB PO HS PRN for SLEEP, (Reported) Apixaban 2.5 Mg Tablet, 2.5 MG PO BID Prescribed by: CARL CHANG on 07/29/17922 Aspirin 81 Mg Tablet.dr, 81 MG PO BID, (Reported) Carvedilol Phosphate 40 Mg Cap, 40 MG PO DAILY, (Reported) Furosemide 20 Mg Tablet, 20 MG PO DAILY Prescribed by: CARL CHANG on 07/29/17922 Glipizide 10 Mg Tablet, 10 MG PO DAILY, (Reported) Metformin HCl 500 Mg Tablet, 500 MG PO BID WITH MEALS, (Reported) Saxagliptin HCl 5 Mg Tablet, 5 MG PO DAILY, (Reported) Simvastatin 20 Mg Tablet, 20 MG PO HS, (Reported) Patient Home Medication List Home Medication List Reviewed: Yes Review of Systems Review of Systems Constitutional: chills, fever, malaise, weakness Eyes: No Symptoms Reported Ears, Nose, Mouth, Throat: see HPI Respiratory: no symptoms reported Cardiovascular: no symptoms reported Gastrointestinal: no symptoms reported Genitourinary: no symptoms reported Musculoskeletal: no symptoms reported Skin: no symptoms reported Psychiatric/Neurological: See HPI Endocrine: No Symptoms Reported Hematologic/Lymphatic: No Symptoms Reported Past Mffacil-Balvfn-Cxzqdi Hx Past Med/Social Hx: Reviewed Nursing Past Med/Soc Hx Patient Social History 2nd Hand Smoke Exposure: No Recent Foreign Travel: No Contact w/Someone Who Travel: No Recent Hopitalizations: No Immunizations Up To Date Date of Pneumonia Vaccine: Mar 23, 2017 Date of Influenza Vaccine: Mar 30, 2017 Seasonal Allergies Seasonal Allergies: No Past Medical History Surgeries: Yes Appendectomy, CABG, Transurethral Resection Respiratory: Yes Pneumonia Currently Using CPAP: No Currently Using BIPAP: No Cardiac: Yes (ABNORMAL RHYTHM., CABG) Coronary Artery Disease, Hypertension Neurological: Yes TIA Reproductive Disorders: No Genitourinary: Yes Prostate Problems Gastrointestinal: Yes Polyps Musculoskeletal: Yes Arthritis Endocrine: Yes Diabetes, Non-Insulin dep HEENT: Yes Hearing Impairment: Hard of Hearing, Bilateral Hearing Aide Cancer: Yes Lymphoma Psychosocial: No Integumentary: No Blood Disorders: No Family Medical History Patient reports no known family medical history. Patient adopted- unaware of family history Physical Exam Vital Signs Vital Signs - First Documented 03/23/20 11:40 Temp 37.0 Pulse 66 Resp 18 B/P (MAP) 164/68 (100) Pulse Ox 97 Capillary Refill : Height, Weight, BMI Height: 5'6.00" Weight: 185lbs. 0.0oz. 83.983824gm; 29.9 BMI Method:Stated General Appearance: WD/WN, no apparent distress HEENT: normal ENT inspection, TMs normal Neck: full range of motion, normal inspection Respiratory: chest non-tender, lungs clear, normal breath sounds Cardiovascular: normal peripheral pulses, regular rate, rhythm Gastrointestinal: non tender, soft Neurologic/Psychiatric: alert, normal mood/affect, oriented x 3 [place] Nerves: normal hearing, normal speech, abnormal eye position Coordination/Gait: normal finger to nose, normal gait Motor/Sensory: no motor deficit, no sensory deficit Skin: normal color, warm/dry Progress/Results/Core Measures Results/Orders Lab Results Laboratory Tests Test 03/23/20 11:53 Range/Units White Blood Count 18.4 H 4.3-11.0 10^3/uL Red Blood Count 3.51 L 4.30-5.52 10^6/uL Hemoglobin 10.3 L 13.3-17.7 g/dL Hematocrit 32 L 40-54 % Mean Corpuscular Volume 90 80-99 fL Mean Corpuscular Hemoglobin 29 25-34 pg Mean Corpuscular Hemoglobin Concent 33 32-36 g/dL Red Cell Distribution Width 15.2 H 10.0-14.5 % Platelet Count 90 L 130-400 10^3/uL Mean Platelet Volume 11.0 9.0-12.2 fL Immature Granulocyte % (Auto) 0 % Neutrophils (%) (Auto) 15 L 42-75 % Lymphocytes (%) (Auto) 76 H 12-44 % Monocytes (%) (Auto) 9 0-12 % Eosinophils (%) (Auto) 0 0-10 % Basophils (%) (Auto) 1 0-10 % Neutrophils # (Auto) 2.7 1.8-7.8 10^3/uL Lymphocytes # (Auto) 13.9 H 1.0-4.0 10^3/uL Monocytes # (Auto) 1.6 H 0.0-1.0 10^3/uL Eosinophils # (Auto) 0.0 0.0-0.3 10^3/uL Basophils # (Auto) 0.2 H 0.0-0.1 10^3/uL Immature Granulocyte # (Auto) 0.0 0.0-0.1 10^3/uL Neutrophils % (Manual) 17 % Lymphocytes % (Manual) 51 % Monocytes % (Manual) 4 % Atypical Lymphocytes 23 % Blast Cells 5 % Anisocytosis MODERATE Elliptocytes SLIGHT Sodium Level 131 L 135-145 MMOL/L Potassium Level 5.0 3.6-5.0 MMOL/L Chloride Level 102 98-107 MMOL/L Carbon Dioxide Level 16 L 21-32 MMOL/L Anion Gap 13 5-14 MMOL/L Blood Urea Nitrogen 28 H 7-18 MG/DL Creatinine 1.43 H 0.60-1.30 MG/DL Estimat Glomerular Filtration Rate 47 BUN/Creatinine Ratio 20 Glucose Level 317 H 70-105 MG/DL Calcium Level 8.4 L 8.5-10.1 MG/DL Corrected Calcium 8.8 8.5-10.1 MG/DL Total Bilirubin 0.9 0.1-1.0 MG/DL Aspartate Amino Transf (AST/SGOT) 43 H 5-34 U/L Alanine Aminotransferase (ALT/SGPT) 31 0-55 U/L Alkaline Phosphatase 223 H 40-136 U/L C-Reactive Protein High Sensitivity 7.55 H 0.00-0.50 MG/DL Total Protein 7.4 6.4-8.2 GM/DL Albumin 3.5 3.2-4.5 GM/DL Coronavirus 2019 (TAL) Positive H Negative My Orders Orders - GAGANDEEP CAMARGO DO Ct Head Wo (03/23/20 11:44) Chest 1 View, Ap/Pa Only (03/23/20 11:44) Cbc With Automated Diff (03/23/20 11:44) Comprehensive Metabolic Panel (03/23/20 11:44) Hs C Reactive Protein (03/23/20 11:44) Covid 19 Inhouse Test (03/23/20 11:44) Ua Culture If Indicated (03/23/20 11:44) Manual Differential (03/23/20 11:53) Vital Signs/I&O 03/23/20 03/23/20 11:40 13:19 Temp 37.0 Pulse 66 74 Resp 18 20 B/P (MAP) 164/68 (100) 126/74 Pulse Ox 97 95 Progress Progress Note : Time: 12:51 Progress Note Agent with no physical exam signs or CT signs consistent with a stroke. Patient is positive for coronavirus with some early inflammatory changes on his lungs. Patient's oxygen oxygens in the upper 90s so there is no reason for admission at this point. He is mildly dehydrated so would recommend he drinks plenty of fluids. Patient stable at this time I did discuss with him that his symptoms are likely to worsen he will need to monitor him. Patient only response to diagnosis is that he is angry because he's been in there 35 minutes since he had his x- rays. Patient discharged home in stable condition Diagnostic Imaging Diagonstic Imaging: Xray, CT Plain Films/CT/US/NM/MRI: chest, head Comments [facility] [place], [place] NAME: ODALIS ORTIZ [facility] REC#: [id number] PT STATUS: REG ER : 1935 PHYSICIAN: GAGANDEEP CAMARGO DO ADMIT DATE: 03/23/20/ER Draft Date of Exam:03/23/20 CHEST 1 VIEW, AP/PA ONLY INDICATION: Cough. Comparison with 07/28/2017. FINDINGS: Portable chest. Cardiomegaly and median sternotomy changes are noted. There are bilateral scattered patchy alveolar and interstitial changes. The upper lungs appear clear without evidence of pulmonary edema. There is no pleural effusion. IMPRESSION: 1. Bilateral scattered patchy alveolar and interstitial infiltrates which could be secondary to pulmonary edema or inflammatory change. 2. Cardiomegaly without significant apical pulmonary venous congestion noted. Dictated on workstation # [id number] Dict: 03/23/20 1230 Trans: 03/23/20 1236 CV [id number] Interpreted by: CASEY GUEVARA MD Electronically signed by: [facility] [place], [place] NAME: ODALIS ORTIZ [facility] REC#: [id number] PT STATUS: REG ER : 1935 PHYSICIAN: GAGANDEEP CAMARGO DO ADMIT DATE: 03/23/20/ER Draft Date of Exam:03/23/20 CT HEAD WO PROCEDURE: CT head without contrast. TECHNIQUE: Multiple contiguous axial images were obtained through the brain without the use of intravenous contrast. Auto Exposure Controls were utilized during the CT exam to meet ALARA standards for radiation dose reduction. INDICATION: Confusion. Altered mental status. Cough. FINDINGS: There is diffuse cortical atrophy. White matter changes are seen consistent with chronic small vessel disease. Ventricles are not dilated. There is no intracranial hemorrhage or mass effect. The basal cisterns are clear. There is encephalomalacia noted within the cerebellum more prominent on the right. The mastoid air cells are clear. There is mucosal thickening in the left maxillary sinus and right ethmoid air cells. IMPRESSION: 1. Encephalomalacia rather prominent within the cerebellum. No acute intracranial findings noted. Comparison is made with previous MRI of 09/05/2015. Dictated on workstation # [id number] Dict: 03/23/20 1226 Trans: 03/23/20 1233 CV [id number] Interpreted by: CASEY GUEVARA MD Electronically signed by: Departure Impression Primary Impression: 2019 novel coronavirus disease (COVID-19) Disposition: HOME, SELF-CARE Condition: Stable Departure-Patient Inst. Referrals: NANCY ESTES MD (PCP/Family) Primary Care Physician Patient Instructions: Coronavirus Disease 2019 (COVID-19) (DC) Add. Discharge Instructions: Please monitor patient's oxygen. Please follow-up with your primary care provider and a couple days for recheck in today symptoms, return to the ER as needed GAGANDEEP CAMARGO DO Mar 23, 2020 11:42
[2020-03-23 12:03] LABS: BASOPHILS # (AUTO) 0.2 10^3/uL (0.0-0.1); BASOPHILS % (AUTO) 1 % (0-10); EOSINOPHILS % (AUTO) 0 % (0-10); HEMATOCRIT 32 % (40-54); HEMOGLOBIN 10.3 g/dL (13.3-17.7); LYMPHOCYTES # (AUTO) 13.9 10^3/uL (1.0-4.0); LYMPHOCYTES % (AUTO) 76 % (12-44); MEAN CORPUSCULAR HEMOGLOBIN 29 pg (25-34); MEAN CORPUSCULAR HGB CONC 33 g/dL (32-36); MEAN CORPUSCULAR VOLUME 90 fL (80-99); MONOCYTES # (AUTO) 1.6 10^3/uL (0.0-1.0); MONOCYTES % (AUTO) 9 % (0-12); NEUTROPHILS # (AUTO) 2.7 10^3/uL (1.8-7.8); NEUTROPHILS % (AUTO) 15 % (42-75); PLATELET COUNT 90 10^3/uL (130-400); WHITE BLOOD COUNT 18.4 10^3/uL (4.3-11.0)
[2020-03-23 12:12] LABS: ALBUMIN 3.5 GM/DL (3.2-4.5)
[2020-03-23 12:13] LABS: CALCIUM 8.4 MG/DL (8.5-10.1)
[2020-03-23 12:15] LABS: TOTAL PROTEIN 7.4 GM/DL (6.4-8.2)
[2020-03-23 12:16] LABS: BILIRUBIN,TOTAL 0.9 MG/DL (0.1-1.0)
[2020-03-23 12:18] LABS: CREATININE SERUM 1.43 MG/DL (0.60-1.30)
[2020-03-23 12:24] LABS: ATYPICAL LYMPHOCYTES 23 %; LYMPHOCYTES % (MANUAL) 51 %; MONOCYTES % (MANUAL) 4 %; NEUTROPHILS % (MANUAL) 17 %
[2020-03-23 12:25] LABS: ANISOCYTOSIS MODERATE; ELLIPT/OVALOCYTES SLIGHT
[2020-03-23 12:26] LABS: BLAST CELLS 5 %
--- NOTE | 2020-03-23 12:33 | Diagnostic Imaging Report ---
PROCEDURE: CT head without contrast. TECHNIQUE: Multiple contiguous axial images were obtained through the brain without the use of intravenous contrast. Auto Exposure Controls were utilized during the CT exam to meet ALARA standards for radiation dose reduction. INDICATION: Confusion. Altered mental status. Cough. FINDINGS: There is diffuse cortical atrophy. White matter changes are seen consistent with chronic small vessel disease. Ventricles are not dilated. There is no intracranial hemorrhage or mass effect. The basal cisterns are clear. There is encephalomalacia noted within the cerebellum more prominent on the right. The mastoid air cells are clear. There is mucosal thickening in the left maxillary sinus and right ethmoid air cells. IMPRESSION: 1. Encephalomalacia rather prominent within the cerebellum. No acute intracranial findings noted. Comparison is made with previous MRI of 09/05/2015. Dictated by: Dictated on workstation # [id number]
--- NOTE | 2020-03-23 12:36 | Diagnostic Imaging Report ---
INDICATION: Cough. Comparison with 07/28/2017. FINDINGS: Portable chest. Cardiomegaly and median sternotomy changes are noted. There are bilateral scattered patchy alveolar and interstitial changes. The upper lungs appear clear without evidence of pulmonary edema. There is no pleural effusion. IMPRESSION: 1. Bilateral scattered patchy alveolar and interstitial infiltrates which could be secondary to pulmonary edema or inflammatory change. 2. Cardiomegaly without significant apical pulmonary venous congestion noted. Dictated by: Dictated on workstation # [id number]
--- NOTE | 2020-03-23 13:10 | NUR ---
pt kristine called and updated about pt discharge information.
[2020-03-23 13:19] VITALS: BP 126/74
== END 2020-03-23 13:19 | disposition home or self-care (01) ==
LOC: EDUNIT# 11:21 → ER 11:22
DX: U07.1 COVID-19 (principal); E11.9 Type 2 diabetes mellitus without complications; I10 Essential (primary) hypertension; Z86.73 Personal history of transient ischemic attack (TIA), and cerebral infarction without residual deficits; Z85.79 Personal history of other malignant neoplasms of lymphoid, hematopoietic and related tissues; Z95.1 Presence of aortocoronary bypass graft; Z79.84 Long term (current) use of oral hypoglycemic drugs; Z79.01 Long term (current) use of anticoagulants; Z79.82 Long term (current) use of aspirin
CPT/HCPCS: 70450; 71045; 80053; 85007; 85027; 86141; 99283; U0002; 36415; 87635

== ENCOUNTER 2020-06-20 09:22 | Emergency (ER) | payer MEDICARE, OTHER ==
[~2020-06-20] VITALS: Ht 168 cm; Wt 90.0 kg
[2020-06-20 10:10] LABS: BASOPHILS # (AUTO) 0.1 10^3/uL (0.0-0.1); BASOPHILS % (AUTO) 1 % (0-10); EOSINOPHILS # (AUTO) 0.1 10^3/uL (0.0-0.3); EOSINOPHILS % (AUTO) 0 % (0-10); HEMATOCRIT 35 % (40-54); HEMOGLOBIN 10.8 g/dL (13.3-17.7); LYMPHOCYTES # (AUTO) 13.8 10^3/uL (1.0-4.0); LYMPHOCYTES % (AUTO) 46 % (12-44); MEAN CORPUSCULAR HEMOGLOBIN 29 pg (25-34); MEAN CORPUSCULAR HGB CONC 31 g/dL (32-36); MEAN CORPUSCULAR VOLUME 94 fL (80-99); MEAN PLATELET VOLUME 10.4 fL (9.0-12.2); MONOCYTES # (AUTO) 5.6 10^3/uL (0.0-1.0); MONOCYTES % (AUTO) 19 % (0-12); NEUTROPHILS # (AUTO) 10.3 10^3/uL (1.8-7.8); NEUTROPHILS % (AUTO) 34 % (42-75); PLATELET COUNT 126 10^3/uL (130-400)
[2020-06-20 10:13] LABS: CHLORIDE 102 MMOL/L (98-107); POTASSIUM 4.8 MMOL/L (3.6-5.0); SODIUM 137 MMOL/L (135-145)
[2020-06-20 10:15] LABS: GLUCOSE 261 MG/DL (70-105); WHITE BLOOD COUNT 30.1 10^3/uL (4.3-11.0)
--- NOTE | 2020-06-20 10:15 | NUR ---
critical lab value wbc 30.1
[2020-06-20 10:16] LABS: CARBON DIOXIDE 24 MMOL/L (21-32)
[2020-06-20 10:19] LABS: BUN/CREATININE RATIO 18; CREATININE SERUM 1.18 MG/DL (0.60-1.30); GFR ESTIMATED 58
[2020-06-20 10:21] LABS: CREATINE KINASE 36 U/L (30-200)
[2020-06-20 10:27] LABS: CREATINE KINASE MB 1.4 NG/ML (<6.6)
--- NOTE | 2020-06-20 10:39 | Diagnostic Imaging Report ---
INDICATION: Shortness of breath PA chest obtained at 1012 a.m. is compared to 03/23/2020 there is poststernotomy change with mild cardiomegaly. Diffuse infiltrate in the right lung show partial improvement there is residual perihilar infiltrate versus mass. Left lung shows some mild perihilar infiltrate which is about the same as the prior study. IMPRESSION: Compared to the prior study, the diffuse infiltrate throughout the right lung is improved but there is more focal density in the right perihilar region which may represent infiltrate or nodule, follow-up is recommended. The mild left perihilar infiltrate is unchanged. There is no pneumothorax or pleural fluid. Dictated by: Dictated on workstation # [id number]
[2020-06-20] MEDS ORDERED: FUROSEMIDE 40 MG/4 ML INJ (LASIX) IVP ONE (10:45)
[2020-06-20 10:51] LABS: ANISOCYTOSIS SLIGHT; ATYPICAL LYMPHOCYTES 30 %; BAND NEUTROPHILS 3 %; BASOPHILS % (MANUAL) 0 %; EOSINOPHILS % (MANUAL) 0 %; LYMPHOCYTES % (MANUAL) 29 %; MONOCYTES % (MANUAL) 4 %; NEUTROPHILS % (MANUAL) 34 %
--- NOTE | 2020-06-20 12:11 | ED Respiratory ---
General Chief Complaint: Respiratory Problems Stated Complaint: FLUID BUILD UP Nursing Triage Note: PT TO RM 4 VIA WC. STATES HE HAS BEEN TO DR CARLSON TUESDAY AND HAS GAINED AT LEAST 12 LBS SINCE END OF LAST WEEK (PER NIECE). PT STATES HE IS HAVING TROUBLE CATCHING HIS BREATH MORE TODAY. History of Present Illness Date Seen by Provider: Jun 20, 2020 Time Seen by Provider: 09:30 Initial Comments Patient is an 85-year-old male who presents to the emergency room today with a chief complaint of increasing weight gain over the course of the last 4 to 5 days approximately 12.5 pounds secondary to fluid retention. Patient states over the last couple of days he become more short of breath. Patient has a history of a three-vessel coronary artery bypass grafting. Patient states that he has had Covid in March 2020. Patient was given some Lasix over the first part of the week 20 mg daily for 3 days without much resolution of his symptoms. Patient denies any recent fevers, chills, productive cough. No GI or symptoms. All other review of systems reviewed and negative except as stated above. Timing/Duration: week Severity: moderate Prior Episodes/Possible Cause: no prior episodes Modifying Factors: Worse With Activity, Worse With Lying Down Allergies and Home Medications Allergies Coded Allergies: No Known Drug Allergies (Unverified , 09/04/15) Home Medications Acetaminophen/Diphenhydramine 1 Each Tablet, 1 TAB PO HS PRN for SLEEP, (Reported) Apixaban 2.5 Mg Tablet, 2.5 MG PO BID Prescribed by: CARL CHANG on 07/29/17922 Aspirin 81 Mg Tablet.dr, 81 MG PO BID, (Reported) Carvedilol Phosphate 40 Mg Cap, 40 MG PO DAILY, (Reported) Furosemide 20 Mg Tablet, 20 MG PO DAILY Prescribed by: CARL CHANG on 07/29/17922 Glipizide 10 Mg Tablet, 10 MG PO DAILY, (Reported) Metformin HCl 500 Mg Tablet, 500 MG PO BID WITH MEALS, (Reported) Saxagliptin HCl 5 Mg Tablet, 5 MG PO DAILY, (Reported) Simvastatin 20 Mg Tablet, 20 MG PO HS, (Reported) Patient Home Medication List Home Medication List Reviewed: Yes Review of Systems Review of Systems Constitutional: see HPI EENTM: no symptoms reported Respiratory: cough, orthopnea, short of breath Cardiovascular: no symptoms reported Gastrointestinal: other (Abdominal distention) Genitourinary: no symptoms reported Musculoskeletal: no symptoms reported Skin: no symptoms reported Psychiatric/Neurological: No Symptoms Reported All Other Systems Reviewed Negative Unless Noted: Yes Past Hzaghor-Svyyxk-Jopjxr Hx Patient Social History Alcohol Use: Denies Use Smoking Status: Never a Smoker 2nd Hand Smoke Exposure: No Recent Infectious Disease Expo: No Recent Hopitalizations: No Immunizations Up To Date Date of Pneumonia Vaccine: Mar 23, 2017 Date of Influenza Vaccine: Mar 30, 2017 Seasonal Allergies Seasonal Allergies: No Past Medical History Surgeries: Yes (hernia repair, turp, ) Appendectomy, CABG, Transurethral Resection Respiratory: Yes Pneumonia Currently Using CPAP: No Currently Using BIPAP: No Cardiac: Yes (ABNORMAL RHYTHM., CABG) Coronary Artery Disease, Hypertension Neurological: Yes TIA Reproductive Disorders: No Genitourinary: Yes Prostate Problems Gastrointestinal: Yes Polyps Musculoskeletal: Yes Arthritis Endocrine: Yes Diabetes, Non-Insulin dep HEENT: Yes Hearing Impairment: Hard of Hearing, Bilateral Hearing Aide Cancer: Yes Lymphoma Psychosocial: No Integumentary: No Blood Disorders: No Family Medical History Patient reports no known family medical history. Patient adopted- unaware of family history Physical Exam Vital Signs - First Documented 06/20/20 09:26 Temp 37.1 Pulse 80 Resp 30 B/P (MAP) 159/89 (112) Pulse Ox 95 Capillary Refill : Less Than 3 Seconds Height: 5'6.00" Weight: 185lbs. 0.0oz. 83.036348me; 31.00 BMI Method:Stated General Appearance: WD/WN, no apparent distress Eyes: Bilateral Eye Normal Inspection, Bilateral Eye PERRL, Bilateral Eye EOMI Neck: full range of motion Respiratory: chest non-tender, normal breath sounds, no respiratory distress, no accessory muscle use, crackles (Occasional crackles heard at the bilateral bases), other (Slight tachypnea) Cardiovascular: regular rate, rhythm, other (Bilateral 2-3+ pitting edema) Gastrointestinal: normal bowel sounds, non tender, soft, other (Distended abdomen with edema in the abdominal wall) Extremities: pedal edema Neurologic/Psychiatric: alert, normal mood/affect, oriented x 3 Skin: normal color, warm/dry Progress/Results/Core Measures Suspected Sepsis Recent Fever Within 48 Hours: No Infection Criteria Present: None New/Unexplained Altered Menta: No Sepsis Screen: No Definite Risk SIRS Temperature: Pulse: 80 Respiratory Rate: 30 Laboratory Tests 06/20/20 09:30: White Blood Count 30.1*H Blood Pressure 159 /89 Mean: 112 Laboratory Tests 06/20/20 09:30: Creatinine 1.18, Platelet Count 126L Results/Orders Lab Results Laboratory Tests Test 06/20/20 09:30 Range/Units White Blood Count 30.1 *H 4.3-11.0 10^3/uL Red Blood Count 3.74 L 4.30-5.52 10^6/uL Hemoglobin 10.8 L 13.3-17.7 g/dL Hematocrit 35 L 40-54 % Mean Corpuscular Volume 94 80-99 fL Mean Corpuscular Hemoglobin 29 25-34 pg Mean Corpuscular Hemoglobin Concent 31 L 32-36 g/dL Red Cell Distribution Width 16.3 H 10.0-14.5 % Platelet Count 126 L 130-400 10^3/uL Mean Platelet Volume 10.4 9.0-12.2 fL Immature Granulocyte % (Auto) 0 % Neutrophils (%) (Auto) 34 L 42-75 % Lymphocytes (%) (Auto) 46 H 12-44 % Monocytes (%) (Auto) 19 H 0-12 % Eosinophils (%) (Auto) 0 0-10 % Basophils (%) (Auto) 1 0-10 % Neutrophils # (Auto) 10.3 H 1.8-7.8 10^3/uL Lymphocytes # (Auto) 13.8 H 1.0-4.0 10^3/uL Monocytes # (Auto) 5.6 H 0.0-1.0 10^3/uL Eosinophils # (Auto) 0.1 0.0-0.3 10^3/uL Basophils # (Auto) 0.1 0.0-0.1 10^3/uL Immature Granulocyte # (Auto) 0.1 0.0-0.1 10^3/uL Neutrophils % (Manual) 34 % Lymphocytes % (Manual) 29 % Monocytes % (Manual) 4 % Eosinophils % (Manual) 0 % Basophils % (Manual) 0 % Band Neutrophils 3 % Atypical Lymphocytes 30 % Anisocytosis SLIGHT Sodium Level 137 135-145 MMOL/L Potassium Level 4.8 3.6-5.0 MMOL/L Chloride Level 102 98-107 MMOL/L Carbon Dioxide Level 24 21-32 MMOL/L Anion Gap 11 5-14 MMOL/L Blood Urea Nitrogen 21 H 7-18 MG/DL Creatinine 1.18 0.60-1.30 MG/DL Estimat Glomerular Filtration Rate 58 BUN/Creatinine Ratio 18 Glucose Level 261 H 70-105 MG/DL Calcium Level 9.0 8.5-10.1 MG/DL Total Creatine Kinase 36 30-200 U/L Creatine Kinase MB 1.4 <6.6 NG/ML Troponin I < 0.028 <0.028 NG/ML B-Type Natriuretic Peptide 819.0 H <100.0 PG/ML My Orders Orders - HAYDEE JACKSON MD Cbc With Automated Diff (06/20/20 10:05) Basic Metabolic Panel (06/20/20 10:05) Chest 1 View, Ap/Pa Only (06/20/20 10:05) Troponin I (06/20/20 10:05) BNP (06/20/20 10:05) Creatine Kinase (06/20/20 10:05) Creatine Kinase Mb (06/20/20 10:05) Ekg Tracing (06/20/20 10:05) Manual Differential (06/20/20 09:30) Furosemide Injection (Lasix Injection) (06/20/20 10:45) Medications Given in ED Current Medications Medications Dose Ordered Sig/Brayden Route Start Time Stop Time Status Last Admin Dose Admin Furosemide 40 mg ONCE ONCE IVP 06/20/20 10:45 06/20/20 10:46 DC 06/20/20 10:53 40 MG Vital Signs/I&O 06/20/20 09:26 Temp 37.1 Pulse 80 Resp 30 B/P (MAP) 159/89 (112) Pulse Ox 95 Capillary Refill : Less Than 3 Seconds Blood Pressure Mean: 112 Progress Note : Time: 12:39 Progress Note Patient remains slightly dyspneic but is able to speak in complete sentences. He states he is urinated off quite a bit of fluids so far after the 40 mg of Lasix IV I given him. I did discuss the case with his primary care physician Dr. Zeus Carlson. He is comfortable with me sending him home with 40 mg of Lasix daily through the weekend and will follow up with him on Tuesday. I have strongly encouraged the patient to follow-up with Dr. Carlson on Tuesday and give his office a call. He verbalizes understanding and is able to repeat these instructions back to me when asked. I did also family and marriage counsellor the patient on salt intake and soda drinking. He states that he does not drink any soda and does not like salt in his food so that should not be a problem. I again asked the patient about any episodes of chest pain, tightness, pressure or discomfort and he adamantly denies this. Patient is most concerned with the amount of fluid in his belly. I have advised him that I think that the Lasix will start to take effect within the next 24 to 48 hours and he should notice hopefully some improvement. All questions are sought and answered. The patient is comfortable with the plan of care and agreeable. He will follow up on Tuesday with his primary care physician. Patient is stable for discharge. ECG Initial ECG Impression Date: Jun 20, 2020 Initial ECG Impression Time: 09:36 Initial ECG Rate: 86 Initial ECG Rhythm: A Fib/Flutter Initial ECG Impression: Atrial Fibrillation Comment Atrial fibrillation rate of 86, PVCs are noted, right bundle branch block is noted Departure Impression Primary Impression: Anasarca Disposition: 01 HOME, SELF-CARE Condition: Stable Departure-Patient Inst. Decision time for Depature: 12:44 Referrals: ZEUS CARLSON MD Patient Instructions: Swelling Add. Discharge Instructions: Take Lasix, 40 mg daily for the next 3 days. I have given you a prescription for 10 tablets however I only want you to take them for the next 3 days and then discuss with Dr. Carlson whether or not to continue them. Please call Dr. Carlson's office on Tuesday for a follow-up appointment. Please come back to the emergency department this weekend if you notice that the swelling is not decreasing, if you get more short of breath, or have any other concerning symptoms. Avoid salty food and soda. Scripts Furosemide (Lasix) 40 Mg Tablet 40 MG PO DAILY, #10 TAB Prov: HAYDEE JACKSON MD 06/20/20 HAYDEE JACKSON MD Jun 20, 2020 12:11
[2020-06-20] MEDS ORDERED: FURO-124 PO (12:46)
--- NOTE | 2020-06-20 12:50 | NUR ---
PT CALLED ALISHA TO NOTIFY HER THAT HE WAS READY FOR D/C
[2020-06-20 13:08] VITALS: BP 128/53
== END 2020-06-20 13:08 | disposition home or self-care (01) ==
LOC: EDUNIT# 09:22 → ER 09:24
DX: R60.1 Generalized edema (principal); E11.9 Type 2 diabetes mellitus without complications; I10 Essential (primary) hypertension; Z85.79 Personal history of other malignant neoplasms of lymphoid, hematopoietic and related tissues; Z86.73 Personal history of transient ischemic attack (TIA), and cerebral infarction without residual deficits; Z95.1 Presence of aortocoronary bypass graft; Z79.01 Long term (current) use of anticoagulants; Z79.82 Long term (current) use of aspirin; Z79.84 Long term (current) use of oral hypoglycemic drugs
CPT/HCPCS: 36415; 71045; 80048; 82550; 82553; 83880; 84484; 85007; 85027

== ENCOUNTER 2020-06-23 13:21 | Inpatient (IN) | payer MEDICARE, OTHER ==
[~2020-06-23] VITALS: Ht 165 cm; Wt 80.0 kg
[~2020-06-23 13:21] MED LIST changes: +FURO-124 PO
--- NOTE | 2020-06-23 13:37 | ED General ---
General Stated Complaint: FLUID BUILD UP Source of Information: Patient Exam Limitations: No Limitations History of Present Illness Date Seen by Provider: Jun 23, 2020 Time Seen by Provider: 13:36 Initial Comments ER by caregiver with reports of exertional dyspnea, 12 pound weight gain over the past week. Primary care Dr. Zeus Bruner. Timing/Duration: 1 Week Severity: Moderate Allergies and Home Medications Allergies Coded Allergies: No Known Drug Allergies (Unverified , 09/04/15) Home Medications Acetaminophen/Diphenhydramine 1 Each Tablet, 1 TAB PO HS PRN for SLEEP, (Reported) Apixaban 2.5 Mg Tablet, 2.5 MG PO BID Prescribed by: CARL CHANG on 07/29/17922 Aspirin 81 Mg Tablet.dr, 81 MG PO BID, (Reported) Carvedilol Phosphate 40 Mg Cap, 40 MG PO DAILY, (Reported) Furosemide 20 Mg Tablet, 20 MG PO DAILY Prescribed by: CARL CHANG on 07/29/17922 Furosemide 40 Mg Tablet, 40 MG PO DAILY Prescribed by: HAYDEE JACKSON on 06/20/20 1246 Glipizide 10 Mg Tablet, 10 MG PO DAILY, (Reported) Metformin HCl 500 Mg Tablet, 500 MG PO BID WITH MEALS, (Reported) Saxagliptin HCl 5 Mg Tablet, 5 MG PO DAILY, (Reported) Simvastatin 20 Mg Tablet, 20 MG PO HS, (Reported) Patient Home Medication List Home Medication List Reviewed: Yes Review of Systems Review of Systems Constitutional: see HPI EENTM: see HPI Respiratory: no symptoms reported Cardiovascular: no symptoms reported Genitourinary: no symptoms reported Musculoskeletal: no symptoms reported Skin: no symptoms reported Psychiatric/Neurological: No Symptoms Reported Hematologic/Lymphatic: No Symptoms Reported Immunological/Allergic: no symptoms reported Past Nmlcmbj-Dphnmi-Lhyfzb Hx Patient Social History 2nd Hand Smoke Exposure: No Recent Hopitalizations: No Immunizations Up To Date Date of Pneumonia Vaccine: Mar 23, 2017 Date of Influenza Vaccine: Mar 30, 2017 Seasonal Allergies Seasonal Allergies: No Past Medical History Surgeries: Yes (hernia repair, turp, ) Appendectomy, CABG, Transurethral Resection Respiratory: Yes Pneumonia Currently Using CPAP: No Currently Using BIPAP: No Cardiac: Yes (ABNORMAL RHYTHM., CABG) Coronary Artery Disease, Hypertension Neurological: Yes TIA Reproductive Disorders: No Genitourinary: Yes Prostate Problems Gastrointestinal: Yes Polyps Musculoskeletal: Yes Arthritis Endocrine: Yes Diabetes, Non-Insulin dep HEENT: Yes Hearing Impairment: Hard of Hearing, Bilateral Hearing Aide Cancer: Yes Lymphoma Psychosocial: No Integumentary: No Blood Disorders: No Family Medical History Patient reports no known family medical history. Patient adopted- unaware of family history Physical Exam Vital Signs Vital Signs - First Documented 06/23/20 13:30 Temp 36.6 Pulse 57 Resp 18 B/P (MAP) 122/91 (101) Pulse Ox 97 O2 Delivery Room Air Capillary Refill : Height, Weight, BMI Height: 5'6.00" Weight: 185lbs. 0.0oz. 83.151792lu; 31.00 BMI Method:Stated General Appearance: No Apparent Distress, WD/WN Eyes: Bilateral Eye Normal Inspection, Bilateral Eye PERRL Respiratory: No Accessory Muscle Use, No Respiratory Distress Cardiovascular: Regular Rate, Rhythm, Normal Peripheral Pulses Gastrointestinal: Non Tender, Soft, Other (Abdomen is distended. Bedside ultrasound reveals a moderate amount of ascites measuring about 3 cm in depth on the right and about 4-5 on the left lower abdomen.) Extremity: Normal Capillary Refill, Normal Inspection Neurologic/Psychiatric: Alert, Oriented x3 Skin: Normal Color, Warm/Dry Progress/Results/Core Measures Suspected Sepsis SIRS Temperature: Pulse: Respiratory Rate: Laboratory Tests 06/23/20 13:30: White Blood Count 17.8H Blood Pressure / Mean: Laboratory Tests 06/23/20 13:30: Creatinine 1.05, Platelet Count 96L, Total Bilirubin 0.8 Results/Orders Lab Results Laboratory Tests Test 06/23/20 13:30 Range/Units White Blood Count 17.8 H 4.3-11.0 10^3/uL Red Blood Count 3.40 L 4.30-5.52 10^6/uL Hemoglobin 9.9 L 13.3-17.7 g/dL Hematocrit 32 L 40-54 % Mean Corpuscular Volume 94 80-99 fL Mean Corpuscular Hemoglobin 29 25-34 pg Mean Corpuscular Hemoglobin Concent 31 L 32-36 g/dL Red Cell Distribution Width 16.1 H 10.0-14.5 % Platelet Count 96 L 130-400 10^3/uL Mean Platelet Volume 10.4 9.0-12.2 fL Immature Granulocyte % (Auto) 0 % Neutrophils (%) (Auto) 17 L 42-75 % Lymphocytes (%) (Auto) 65 H 12-44 % Monocytes (%) (Auto) 17 H 0-12 % Eosinophils (%) (Auto) 1 0-10 % Basophils (%) (Auto) 1 0-10 % Neutrophils # (Auto) 3.0 1.8-7.8 10^3/uL Lymphocytes # (Auto) 11.6 H 1.0-4.0 10^3/uL Monocytes # (Auto) 3.0 H 0.0-1.0 10^3/uL Eosinophils # (Auto) 0.1 0.0-0.3 10^3/uL Basophils # (Auto) 0.1 0.0-0.1 10^3/uL Immature Granulocyte # (Auto) 0.0 0.0-0.1 10^3/uL Neutrophils % (Manual) 17 % Lymphocytes % (Manual) 10 % Monocytes % (Manual) 2 % Eosinophils % (Manual) 0 % Basophils % (Manual) 0 % Band Neutrophils 0 % Reactive Lymphocytes 71 % Anisocytosis SLIGHT Sodium Level 141 135-145 MMOL/L Potassium Level 4.2 3.6-5.0 MMOL/L Chloride Level 105 98-107 MMOL/L Carbon Dioxide Level 26 21-32 MMOL/L Anion Gap 10 5-14 MMOL/L Blood Urea Nitrogen 25 H 7-18 MG/DL Creatinine 1.05 0.60-1.30 MG/DL Estimat Glomerular Filtration Rate > 60 BUN/Creatinine Ratio 24 Glucose Level 152 H 70-105 MG/DL Calcium Level 8.8 8.5-10.1 MG/DL Corrected Calcium 9.3 8.5-10.1 MG/DL Total Bilirubin 0.8 0.1-1.0 MG/DL Aspartate Amino Transf (AST/SGOT) 31 5-34 U/L Alanine Aminotransferase (ALT/SGPT) 20 0-55 U/L Alkaline Phosphatase 215 H 40-136 U/L B-Type Natriuretic Peptide 832.7 H <100.0 PG/ML Total Protein 7.4 6.4-8.2 GM/DL Albumin 3.4 3.2-4.5 GM/DL My Orders Orders - JC NEWTON STEEL ESTIMATOR BNP (06/23/20 13:28) Cbc With Automated Diff (06/23/20 13:28) Comprehensive Metabolic Panel (06/23/20 13:28) Ed Iv/Invasive Line Start (06/23/20 13:28) Chest 1 View, Ap/Pa Only (06/23/20 13:28) Ekg Tracing (06/23/20 13:38) Manual Differential (06/23/20 13:30) Vital Signs/I&O 06/23/20 13:30 Temp 36.6 Pulse 57 Resp 18 B/P (MAP) 122/91 (101) Pulse Ox 97 O2 Delivery Room Air Capillary Refill : Diagnostic Imaging Diagonstic Imaging: Xray Comments NAME: ODALIS ORTIZ [facility] REC#: [id number] PT STATUS: REG ER : 1935 PHYSICIAN: JC NEWTON APRN ADMIT DATE: 06/23/20/ER Draft Date of Exam:06/23/20 CHEST 1 VIEW, AP/PA ONLY INDICATION: Weight gain. TIME OF EXAM: 01:36 p.m. COMPARISON: Correlation is made with prior chest from 06/20/2020. FINDINGS: Changes of median sternotomy and CABG are noted. The heart size is stable. Infiltrate in the right perihilar region on prior study is significantly improved on today's exam. No new infiltrate is detected. There is no effusion or pneumothorax. IMPRESSION: Near-complete clearing of right upper lobe/right perihilar infiltrate when compared with examination three days earlier. Dictated on workstation # [id number] Dict: 06/23/20 1343 Trans: 06/23/20 1346 [id number] Interpreted by: COLT VELASQUEZ MD Electronically signed by: Departure Communication (Admissions) Time/Spoke to Admitting Phy: 15:[address] Bruner will admit consult surgery for the ascites and cardiology for the ascites/edema/exertional dyspnea. Impression Primary Impression: CLL (chronic lymphocytic leukemia) Additional Impressions: Anasarca CHF (congestive heart failure) Disposition: ADMITTED INPATIENT Condition: Stable Admissions Decision to Admit Reason: Admit from ER (General) Decision to Admit/Date: Jun 23, 2020 Time/Decision to Admit Time: 14:00 Departure-Patient Inst. Referrals: NO,LOCAL PHYSICIAN (PCP/Family) Primary Care Physician JC NEWTON APRN Jun 23, 2020 13:37
--- NOTE | 2020-06-23 13:47 | Diagnostic Imaging Report ---
INDICATION: Weight gain. TIME OF EXAM: 01:36 p.m. COMPARISON: Correlation is made with prior chest from 06/20/2020. FINDINGS: Changes of median sternotomy and CABG are noted. The heart size is stable. Infiltrate in the right perihilar region on prior study is significantly improved on today's exam. No new infiltrate is detected. There is no effusion or pneumothorax. IMPRESSION: Near-complete clearing of right upper lobe/right perihilar infiltrate when compared with examination three days earlier. Dictated by: Dictated on workstation # [id number]
[2020-06-23 13:56] LABS: BASOPHILS # (AUTO) 0.1 10^3/uL (0.0-0.1); BASOPHILS % (AUTO) 1 % (0-10); EOSINOPHILS # (AUTO) 0.1 10^3/uL (0.0-0.3); EOSINOPHILS % (AUTO) 1 % (0-10); HEMATOCRIT 32 % (40-54); HEMOGLOBIN 9.9 g/dL (13.3-17.7); LYMPHOCYTES # (AUTO) 11.6 10^3/uL (1.0-4.0); LYMPHOCYTES % (AUTO) 65 % (12-44); MEAN CORPUSCULAR HEMOGLOBIN 29 pg (25-34); MEAN CORPUSCULAR HGB CONC 31 g/dL (32-36); MEAN CORPUSCULAR VOLUME 94 fL (80-99); MEAN PLATELET VOLUME 10.4 fL (9.0-12.2); MONOCYTES % (AUTO) 17 % (0-12); NEUTROPHILS % (AUTO) 17 % (42-75); PLATELET COUNT 96 10^3/uL (130-400); WHITE BLOOD COUNT 17.8 10^3/uL (4.3-11.0)
[2020-06-23 14:05] LABS: ALBUMIN 3.4 GM/DL (3.2-4.5)
[2020-06-23 14:06] LABS: CHLORIDE 105 MMOL/L (98-107); POTASSIUM 4.2 MMOL/L (3.6-5.0); SODIUM 141 MMOL/L (135-145)
[2020-06-23 14:07] LABS: CALCIUM 8.8 MG/DL (8.5-10.1)
[2020-06-23 14:08] LABS: GLUCOSE 152 MG/DL (70-105); TOTAL PROTEIN 7.4 GM/DL (6.4-8.2)
[2020-06-23 14:09] LABS: CARBON DIOXIDE 26 MMOL/L (21-32)
[2020-06-23 14:10] LABS: BILIRUBIN,TOTAL 0.8 MG/DL (0.1-1.0)
[2020-06-23 14:11] LABS: ALKALINE PHOSPHATASE 215 U/L (40-136); CREATININE SERUM 1.05 MG/DL (0.60-1.30); GFR ESTIMATED > 60
[2020-06-23 14:13] LABS: BUN/CREATININE RATIO 24
[2020-06-23 14:14] LABS: ALANINE AMINOTRANSFERASE 20 U/L (0-55)
[2020-06-23 14:16] LABS: ANISOCYTOSIS SLIGHT; BAND NEUTROPHILS 0 %; BASOPHILS % (MANUAL) 0 %; EOSINOPHILS % (MANUAL) 0 %; LYMPHOCYTES % (MANUAL) 10 %; MONOCYTES % (MANUAL) 2 %; NEUTROPHILS % (MANUAL) 17 %; REACTIVE LYMPHOCYTES 71 %
--- NOTE | 2020-06-23 15:05 | NUR ---
DR WATSON HERE TO SEE PT
--- NOTE | 2020-06-23 15:25 | NUR ---
DR WATSON HERE TO DO ULTRASOUND GUIDED PARACENTISIS
--- NOTE | 2020-06-23 15:44 | NUR ---
PT TO ULTRA SOUND Swathi MENDEZ RN
--- NOTE | 2020-06-23 15:57 | Consultation - Surgery ---
History of Present Illness History of Present Illness Patient Consulted On(onur/time) 06/23/20 15:53 Time Seen by Provider: 15:22 History of Present Illness Surgery asked to consult regarding ascites and SOB. HPI per ED: ER by caregiver with reports of exertional dyspnea, 12 pound weight gain over the past week. Primary care Dr. Zeus Bruner. Timing/Duration: 1 Week Severity: Moderate When I spoke to pt and his Niece, he states that he has started having trouble breathing and his "belly is bigger". He denies this ever happening to his abdomen before. He describes a dull ache over the entire abdomen. Pain does not radiate anywhere. He states he has gained 12lbs and has a hx of CLL; denies any hx of liver problems. Allergies and Home Medications Allergies Coded Allergies: No Known Drug Allergies (Unverified , 09/04/15) Home Medications Acetaminophen/Diphenhydramine 1 Each Tablet, 1 TAB PO HS PRN for SLEEP, (Re ported) Apixaban 2.5 Mg Tablet, 2.5 MG PO BID Prescribed by: CARL CHANG on 07/29/17922 Aspirin 81 Mg Tablet.dr, 81 MG PO BID, (Reported) Carvedilol Phosphate 40 Mg Cap, 40 MG PO DAILY, (Reported) Furosemide 20 Mg Tablet, 20 MG PO DAILY Prescribed by: CARL CHANG on 07/29/17922 Furosemide 40 Mg Tablet, 40 MG PO DAILY Prescribed by: HAYDEE JACKSON on 06/20/20 1246 Glipizide 10 Mg Tablet, 10 MG PO DAILY, (Reported) Metformin HCl 500 Mg Tablet, 500 MG PO BID WITH MEALS, (Reported) Saxagliptin HCl 5 Mg Tablet, 5 MG PO DAILY, (Reported) Simvastatin 20 Mg Tablet, 20 MG PO HS, (Reported) Patient Home Medication List Home Medication List Reviewed: Yes Past Qdyhtck-Zqnhhy-Bhhhgf Hx Patient Social History Smoking Status: Never a Smoker 2nd Hand Smoke Exposure: No Recent Hopitalizations: No Immunizations Up To Date Date of Pneumonia Vaccine: Mar 23, 2017 Date of Influenza Vaccine: Mar 30, 2017 Seasonal Allergies Seasonal Allergies: No Surgeries History of Surgeries: Yes (hernia repair, turp, ) Surgeries: Appendectomy, CABG, Transurethral Resection Respiratory History of Respiratory Disorde: Yes Respiratory Disorders: Pneumonia Cardiovascular History of Cardiac Disorders: Yes (ABNORMAL RHYTHM., CABG) Cardiac Disorders: Coronary Artery Disease, Hypertension Neurological History of Neurological Disord: Yes Neurological Disorders: TIA Reproductive System Hx Reproductive Disorders: No Genitourinary History of Genitourinary Disor: Yes Genitourinary Disorders: Prostate Problems Gastrointestinal History of Gastrointestinal Di: Yes Gastrointestinal Disorders: Polyps Musculoskeletal History of Musculoskeletal Dis: Yes Musculoskeletal Disorders: Arthritis Endocrine History of Endocrine Disorders: Yes Endocrine Disorders: Diabetes, Non-Insulin dep HEENT History of HEENT Disorders: Yes Hearing Impairment: Hard of Hearing, Bilateral Hearing Aide Cancer History of Cancer: Yes Cancer: Lymphoma Psychosocial History of Psychiatric Problem: No Integumentary History of Skin or Integumenta: No Blood Transfusions History of Blood Disorders: No Family Medical History Significant Family History: Other Conditions/Hx (Pt states he was adopted.) Family Medial History: Patient reports no known family medical history. Review of Systems-General Constitutional: malaise, weakness, weight gain EENTM: hearing loss; No blurred vision, No double vision, No epistaxis, No throat swelling Respiratory: cough, dyspnea on exertion; No hemoptysis, No phlegm; short of breath Cardiovascular: No chest pain; edema, Hx of Intervention Gastrointestinal: abdominal pain, constipation; No jaundice, No nausea, No vomiting Genitourinary: No dysuria, No frequency, No hematuria Musculoskeletal: joint pain, joint swelling, muscle pain, muscle stiffness Skin: No change in color, No change in hair/nails Psychiatric/Neurological: Denies Anxiety, Denies Depressed, Denies Seizure, Denies Tingling Other Pt is on blood thinners Physical Exam-General Problems Physical Exam Vital Signs Vital Signs - First Documented 06/23/20 13:30 Temp 36.6 Pulse 57 Resp 18 B/P (MAP) 122/91 (101) Pulse Ox 97 O2 Delivery Room Air Capillary Refill : Less Than 3 Seconds General Appearance: WD/WN, mild distress Eyes: Bilateral Eye PERRL, Bilateral Eye EOMI HEENT: pharynx normal; No scleral icterus (R), No scleral icterus (L); other (poor dentition) Neck: non-tender, supple Respiratory: chest non-tender, respiratory distress, accessory muscle use, crackles, wheezing Cardiovascular: no murmur, bradycardia Gastrointestinal: normal bowel sounds, soft, distended; No guarding, No rebound; hepatomegaly, spleenomegaly Rectal: deferred Back: no CVA tenderness, no vertebral tenderness Extremities: no calf tenderness, pedal edema (+2-3), other (scratches on lower legs) Neurologic/Psychiatric: teleprinter II-XII nml as tested, alert, normal mood/affect Skin: normal color, warm/dry Lymphatic: no adenopathy (neck, axilla or groin) Data Review Labs Laboratory Tests 06/23/20 13:30: White Blood Count 17.8H, Red Blood Count 3.40L, Hemoglobin 9.9L, Hematocrit 32L, Mean Corpuscular Volume 94, Mean Corpuscular Hemoglobin 29, Mean Corpuscular Hemoglobin Concent 31L, Red Cell Distribution Width 16.1H, Platelet Count 96L, Mean Platelet Volume 10.4, Immature Granulocyte % (Auto) 0, Neutrophils (%) (Auto) 17L, Lymphocytes (%) (Auto) 65H, Monocytes (%) (Auto) 17H, Eosinophils (%) (Auto) 1, Basophils (%) (Auto) 1, Neutrophils # (Auto) 3.0, Lymphocytes # (Auto) 11.6H, Monocytes # (Auto) 3.0H, Eosinophils # (Auto) 0.1, Basophils # (Auto) 0.1, Immature Granulocyte # (Auto) 0.0, Neutrophils % (Manual) 17, Lymphocytes % (Manual) 10, Monocytes % (Manual) 2, Eosinophils % (Manual) 0, Basophils % (Manual) 0, Band Neutrophils 0, Reactive Lymphocytes 71, Anisocytosis SLIGHT, Sodium Level 141, Potassium Level 4.2, Chloride Level 105, Carbon Dioxide Level 26, Anion Gap 10, Blood Urea Nitrogen 25H, Creatinine 1.05, Estimat Glomerular Filtration Rate > 60, BUN/Creatinine Ratio 24, Glucose Level 152H, Calcium Level 8.8, Corrected Calcium 9.3, Total Bilirubin 0.8, Aspartate Amino Transf (AST/SGOT) 31, Alanine Aminotransferase (ALT/SGPT) 20, Alkaline Phosphatase 215H, B-Type Natriuretic Peptide 832.7H, Total Protein 7.4, Albumin 3.4 Assessment/Plan Assessment/Plan Assessment/Plan Ascites Hx of CLL RUL Pneumonia CHF SOB Pt is being admitted secondary to SOB, Possibly resolving Pneumonia, and new onset Ascites. I talked with pt about doing a Paracentesis; which may help pt with his breathing. He is getting a consult by Cardiology as well, for probable diuresis as well. I went over risks and complications of Paracentesis; including but not limited to pain, bleeding, infection, scar, damage to bowel and need for further procedure. All questions answered to their satisfaction. CASEY WATSON DO Jun 23, 2020 15:57
--- NOTE | 2020-06-23 16:30 | Progress Note-Post Operative ---
Post-Operative Progess Note Surgeon (s)/Frame Cleaner (s) Surgeon CASEY WATSON DO Frame Cleaner: none Pre-Operative Diagnosis Ascites Post-Operative Diagnosis same pending path Procedure & Operative Findings Date of Procedure 06/23/20 Procedure Performed/Findings After informed consent was obtained, the patient was in the ER room, timeout was performed and then the patient was sterilely prepped and draped in normal fashion. He had already been previously marked by the ultrasound and then ultrasound watched as I first infiltrated the skin with local and then made a small stab incision with #11 blade and then advanced the safe-T needle at the spot that ultrasound had marked; gently into the abdomen, able to push through and then got a good flash of ascitic fluid and then pushed the catheter in and pulled the needle out. Catheter went in easily and then hooked this up to vacutainer and got out yellowish ascitic fluid. No bleeding at all, drained approximately 4575ml of ascitic fluid. The patient tolerated the procedure. The catheter was removed and an area was cleaned and dried and bandaged. He tolerated the procedure. Sponge, instrument and needle count correct at the end of the case. Anesthesia Type local lidocaine Estimated Blood Loss Estimated blood loss (mL): scant Specimens/Packing Specimens Removed 4575ml straw colored fluid CASEY WATSON DO Jun 23, 2020 16:30
[2020-06-23 16:34] VITALS: BP 135/63
[2020-06-23 16:44] LABS: AMYLASE,BODY FLUID 14 U/L
[2020-06-23 16:46] LABS: GLUCOSE,BODY FLUID 158 MG/DL; TOTAL PROTEIN,BODY FLUID 1.8 G/DL
--- NOTE | 2020-06-23 16:46 | Consultation-Cardiology ---
HPI-Cardiology Cardiology Consultation Date of Consultation 06/23/20 Date of Admission Time Seen by Provider: 16:30 Indication: congestive heart failure HPI 85 years old gentleman with history of coronary artery disease, hypertension hyperlipidemia, started to have Significant weight gain, increasing ascites and peripheral edema over the past month with 12 pound weight gain. Came into the emergency room and noted to have significant ascites and elevated BNP. On my evaluation was laying down in bed, had paracentesis with over 2 L drainage Home Medications & Allergies Allergies: Coded Allergies: No Known Drug Allergies (Unverified , 09/04/15) Home Medication List Reviewed: Yes NOP-Cmpsyw-P[place] Hx Patient Social History Marital Status: Recreational Drug Use: No Smoking Status: Never a Smoker 2nd Hand Smoke Exposure: No Recent Hopitalizations: No Immunizations Up To Date Date of Pneumonia Vaccine: Mar 23, 2017 Date of Influenza Vaccine: Mar 30, 2017 Past Medical History Discussed below Family Medical History Significant Family History: Other Conditions/Hx (Pt states he was adopted.) Family Medical Hx Noncontributory Family History: Patient reports no known family medical history. Review of Systems-General Review of Systems Constitutional: malaise, weakness, weight gain EENTM: hearing loss; No blurred vision, No double vision, No epistaxis, No throat swelling Respiratory: cough, dyspnea on exertion; No hemoptysis, No phlegm; short of breath Cardiovascular: see HPI; No chest pain; edema, Hx of Intervention Gastrointestinal: abdominal pain, constipation; No jaundice, No nausea, No vomiting; other (ascites) Genitourinary: No dysuria, No frequency, No hematuria Musculoskeletal: joint pain, joint swelling, muscle pain, muscle stiffness Skin: No change in color, No change in hair/nails Psychiatric/Neurological: Denies Anxiety, Denies Depressed, Denies Seizure, Denies Tingling Reviewed Test Results Reviewed Test Results Lab Laboratory Tests Test 06/23/20 13:30 06/23/20 16:19 Range/Units White Blood Count 17.8 H 4.3-11.0 10^3/uL Red Blood Count 3.40 L 4.30-5.52 10^6/uL Hemoglobin 9.9 L 13.3-17.7 g/dL Hematocrit 32 L 40-54 % Mean Corpuscular Volume 94 80-99 fL Mean Corpuscular Hemoglobin 29 25-34 pg Mean Corpuscular Hemoglobin Concent 31 L 32-36 g/dL Red Cell Distribution Width 16.1 H 10.0-14.5 % Platelet Count 96 L 130-400 10^3/uL Mean Platelet Volume 10.4 9.0-12.2 fL Immature Granulocyte % (Auto) 0 % Neutrophils (%) (Auto) 17 L 42-75 % Lymphocytes (%) (Auto) 65 H 12-44 % Monocytes (%) (Auto) 17 H 0-12 % Eosinophils (%) (Auto) 1 0-10 % Basophils (%) (Auto) 1 0-10 % Neutrophils # (Auto) 3.0 1.8-7.8 10^3/uL Lymphocytes # (Auto) 11.6 H 1.0-4.0 10^3/uL Monocytes # (Auto) 3.0 H 0.0-1.0 10^3/uL Eosinophils # (Auto) 0.1 0.0-0.3 10^3/uL Basophils # (Auto) 0.1 0.0-0.1 10^3/uL Immature Granulocyte # (Auto) 0.0 0.0-0.1 10^3/uL Neutrophils % (Manual) 17 % Lymphocytes % (Manual) 10 % Monocytes % (Manual) 2 % Eosinophils % (Manual) 0 % Basophils % (Manual) 0 % Band Neutrophils 0 % Reactive Lymphocytes 71 % Anisocytosis SLIGHT Sodium Level 141 135-145 MMOL/L Potassium Level 4.2 3.6-5.0 MMOL/L Chloride Level 105 98-107 MMOL/L Carbon Dioxide Level 26 21-32 MMOL/L Anion Gap 10 5-14 MMOL/L Blood Urea Nitrogen 25 H 7-18 MG/DL Creatinine 1.05 0.60-1.30 MG/DL Estimat Glomerular Filtration Rate > 60 BUN/Creatinine Ratio 24 Glucose Level 152 H 70-105 MG/DL Calcium Level 8.8 8.5-10.1 MG/DL Corrected Calcium 9.3 8.5-10.1 MG/DL Total Bilirubin 0.8 0.1-1.0 MG/DL Aspartate Amino Transf (AST/SGOT) 31 5-34 U/L Alanine Aminotransferase (ALT/SGPT) 20 0-55 U/L Alkaline Phosphatase 215 H 40-136 U/L B-Type Natriuretic Peptide 832.7 H <100.0 PG/ML Total Protein 7.4 6.4-8.2 GM/DL Albumin 3.4 3.2-4.5 GM/DL Physical Exam Physical Exam Vital Signs Vital Signs - First Documented 06/23/20 13:30 Temp 36.6 Pulse 57 Resp 18 B/P (MAP) 122/91 (101) Pulse Ox 97 O2 Delivery Room Air Capillary Refill : Less Than 3 Seconds Height, Weight, BMI Height: 5'6.00" Weight: 185lbs. 0.0oz. 83.421850lf; 31.00 BMI Method:Stated General Appearance: No Apparent Distress, WD/WN Eyes: Bilateral Eye Normal Inspection, Bilateral Eye PERRL, Bilateral Eye EOMI Respiratory: No Accessory Muscle Use, No Respiratory Distress Cardiovascular: Regular Rate, Rhythm, Normal Peripheral Pulses Gastrointestinal: Non Tender, Soft, Other (ascites, distended abdomen) Extremity: Normal Capillary Refill, Normal Inspection, Pedal Edema (+3 pedal edema) Neurologic/Psychiatric: Alert, Oriented x3 Skin: Normal Color, Warm/Dry A/P-Cardiology Admission Diagnosis Anasarca Congestive heart failure Hypertension Hyperlipidemia Assessment/Plan Anasarca, significant fluid overload, could be secondary to right-sided heart failure, echocardiogram showed advanced diastolic dysfunction with mildly reduced systolic function, pulmonary hypertension. Possibility of infiltrative disease. Patient will be started on diuretics and we will monitor his response cautiously Congestive heart failure, acute on chronic left ventricular diastolic dysfunction, severe pulmonary hypertension, hypertensive heart disease. Starting on diuretics. Coronary artery disease, history of CABG done in 2006 using MASSEY to LAD, vein graft to the to the obtuse marginal branch and vein graft to the PDA. Has been doing well last stress test was done in 2017 showing no ischemia Paroxysmal atrial fibrillation noted on EKG in July 2017, frequent PVCs. Followed by Dr. 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
[2020-06-23 16:51] LABS: LDH,BODY FLUID 57 U/L
[2020-06-23] MEDS ORDERED: AZITHROMYCIN 500 MG/NS 250 ML IVPB IV NR ×2 (17:00)
[2020-06-23 17:25] LABS: BF OTHER CELLS 37 %; BODY FLUID APPEARENCE MOD CLDY; BODY FLUID COLOR YELLOW; BODY FLUID RBC COUNT 3250 /uL; BODY FLUID SOURCE PERITON; BODY FLUID WBC TOTAL COUNT 800 /uL; LYMPHOCYTES,BODY FLUID 57 %
[2020-06-23] MEDS: FUROSEMIDE 40 MG/4 ML INJ (LASIX) IVP SCH (17:26)
[2020-06-23] MEDS: cefTRIAXone 1,000 MG/SWFI 10 ML IV PUSH IV SCH ×2 (17:26)
[2020-06-23] MEDS: KCL 20 MEQ TAB (K-DUR) PO SCH (17:27)
[2020-06-23] MEDS ORDERED: DOXE10CA29 PO (19:16)
--- NOTE | 2020-06-23 19:43 | NUR ---
Franck admitted to room 428-1, with an admitting diagnosis of resolving pneumonia and ascites, on 06/23/20 from [place] via stretcher, accompanied by nurse.FRANCK ORTIZ introduced to surroundings, call light, bed controls, phone, TV, temperature control, lights, meal times, smoking policy, visitor policy, side rail policy, bathrooms and showers. Patient Rights given to patient in the handbook.FRANCK ORTIZ verbalizes understanding that [facility] is not responsible for the loss or damage to any personal effects or valuables that are kept in the patients posession during their hospitalization.
[2020-06-23 20:40] VITALS: BP 141/72
--- NOTE | 2020-06-23 20:59 | History & Physical ---
History of Present Illness History of Present Illness Reason for visit/HPI 85 yo M admitted for acute diastolic congestive heart failure that has been in the works for about 2 weeks. Oral lasix after 40mg IV lasix on Saturday June 20, 2020 proved unsuccessful. He has developed progressive shortness of breath. He was also found to have ascites in his abdomen which was drained by Dr. Fisher. 4.5L was taken off and sent for analysis. BNP >800. He also has CLL and follows with Dr. Pacheco. His WBC were 30K on 06/20/20 but are down to 17K now. Platelets remain low. Patient reports he is breathing much better since the paracentesis. Date of Admission Jun 23, 2020 at 14:39 Date Seen by a Provider: Jun 23, 2020 Time Seen by a Provider: 20:52 I consulted on this patient on 06/23/20 20:52 Attending Physician Zeus Bruner MD Admitting Physician No,Local Physician Consult Allergies and Home Medications Allergies Coded Allergies: No Known Drug Allergies (Unverified , 09/04/15) Home Medications Apixaban 2.5 Mg Tablet, 2.5 MG PO BID, (Reported) Aspirin 81 Mg Tablet.dr, 81 MG PO BID, (Reported) Carvedilol Phosphate 40 Mg Cpmp.24hr, 40 MG PO DAILY, (Reported) Doxepin HCl 10 Mg Capsule, 10 MG PO HS, (Reported) Furosemide 40 Mg Tablet, 40 MG PO DAILY, (Reported) FILLED 06-20-2020 #10/10 DAY SUPPLY Glipizide 10 Mg Tablet, 10 MG PO DAILY, (Reported) Lisinopril 5 Mg Tablet, 5 MG PO DAILY, (Reported) Melatonin 5 Mg Tablet, 5 MG PO HS, (Reported) Metformin HCl 1,000 Mg Tablet, 1,000 MG PO BID, (Reported) Saxagliptin HCl 5 Mg Tablet, 5 MG PO DAILY, (Reported) Simvastatin 20 Mg Tablet, 20 MG PO HS, (Reported) Patient Home Medication List Home Medication List Reviewed: Yes Past Ohzrobx-Mmawso-Pixmjq Hx Patient Social History Marrital Status: Smoking Status: Never a Smoker 2nd Hand Smoke Exposure: No Recent Hopitalizations: No Alcohol Use?: Yes Pt feels they are or have been: No Immunizations Up To Date Date of Pneumonia Vaccine: Mar 23, 2017 Date of Influenza Vaccine: Mar 30, 2017 Seasonal Allergies Seasonal Allergies: No Surgeries Yes (hernia repair, turp, ) Appendectomy, CABG, Transurethral Resection Respiratory Yes Currently Using CPAP: No Currently Using BIPAP: No Cardiovascular Yes (ABNORMAL RHYTHM., CABG) Coronary Artery Disease, Hypertension Neurological Yes TIA Reproductive System Hx Reproductive Disorders: No Genitourinary Yes Prostate Problems Gastrointestinal Yes Polyps Musculoskeletal Yes Arthritis Endocrine History of Endocrine Disorders: Yes Endocrine Disorders: Diabetes, Non-Insulin dep HEENT History of HEENT Disorders: Yes Hearing Impairment: Hard of Hearing, Bilateral Hearing Aide Cancer Yes Lymphoma Psychosocial History of Psychiatric Problem: No Integumentary History of Skin or Integumenta: No Blood Transfusions History of Blood Disorders: No Family Medical History Significant Family History: Other Conditions/Hx (Pt states he was adopted.) Other Significan Family Hx: Patient adopted- unaware of family history Family Hx: Patient reports no known family medical history. Review of Systems Review of Systems General: No Chills, No Night Sweats HEENT: No Head Aches Pulmonary: Dyspnea, Cough Cardiovascular: No: Chest Pain, Palpitations Gastrointestinal: Abdominal Pain; No: Nausea, Vomiting Genitourinary: No Dysuria Neurological: Weakness Physical Exam Vital Signs Vital Signs - First Documented 06/23/20 13:30 Temp 36.6 Pulse 57 Resp 18 B/P (MAP) 122/91 (101) Pulse Ox 97 O2 Delivery Room Air Capillary Refill : Less Than 3 SecondsLess Than 3 Seconds Height, Weight, BMI Height: 5'6.00" Weight: 185lbs. 0.0oz. 83.100318bq; 30.00 BMI Method:Stated General Appearance: No Apparent Distress HEENT: PERRL/EOMI Neck: Non Tender, Supple Respiratory: Chest Non Tender, Lungs Clear Cardiovascular: Other (RRR with occassional pvcs) Gastrointestinal: Non Tender, Soft, Distended (ascites) Rectal: Deferred Back: No Vertebral Tenderness Extremity: Non Tender, Pedal Edema (2+ lower legs) Neurologic/Psychiatric: Alert, Oriented x3 Skin: Warm/Dry Assessment/Plan Assessment/Plan Admission Dx acute on chronic diastolic heart failure- Admission Status: Inpatient Order (span 2 midnights) Reason for Inpatient Admission: Worsening shortness of breath with now 2 ER visits and failed outpatient intervention of by mouth furosemide-- he will need at least 2 overnights at the hospital to further evaluate his cardiac situation and find about more about his ascites. Assessment and Plan admitted 06/23/20 on rocephin, azithromycin for pneumonia- he is on room air and breathing is significantly better after paracentesis so likely the pneumonia is of low significance in his breathing issues. -continue diuresis with IV lasix -will transition to po on discharge. -will need further imaging to evaluate the ascites. -monitor lytes Dr. Trevino, Dr. Fisher consulted. DVT ppx: chemoppx not used as his platelets <100. Problems: (1) Acute on chronic diastolic (congestive) heart failure (2) CLL (chronic lymphocytic leukemia) (3) Non-insulin dependent type 2 diabetes mellitus Assessment & Plan: sliding scale insulin if blood sugars become elevated. (4) Essential (primary) hypertension (5) Pneumonia Assessment & Plan: on rocephin, azithromycin -room air (6) ZEUS Ghotra MD Jun 23, 2020 20:59
[2020-06-23] MEDS: DOXEPIN 10 MG (SINEquan) CAP PO SCH (22:41)
[2020-06-24] VITALS (7 sets, daily range): BP systolic 129–145; BP diastolic 60–72
[2020-06-24 05:45] LABS: BASOPHILS # (AUTO) 0.1 10^3/uL (0.0-0.1); BASOPHILS % (AUTO) 1 % (0-10); EOSINOPHILS # (AUTO) 0.1 10^3/uL (0.0-0.3); EOSINOPHILS % (AUTO) 1 % (0-10); HEMATOCRIT 31 % (40-54); HEMOGLOBIN 9.9 g/dL (13.3-17.7); LYMPHOCYTES # (AUTO) 11.1 10^3/uL (1.0-4.0); LYMPHOCYTES % (AUTO) 68 % (12-44); MEAN CORPUSCULAR HEMOGLOBIN 29 pg (25-34); MEAN CORPUSCULAR HGB CONC 32 g/dL (32-36); MEAN CORPUSCULAR VOLUME 92 fL (80-99); MEAN PLATELET VOLUME 10.3 fL (9.0-12.2); MONOCYTES # (AUTO) 3.1 10^3/uL (0.0-1.0); MONOCYTES % (AUTO) 19 % (0-12); NEUTROPHILS # (AUTO) 1.8 10^3/uL (1.8-7.8); NEUTROPHILS % (AUTO) 11 % (42-75); PLATELET COUNT 84 10^3/uL (130-400); WHITE BLOOD COUNT 16.3 10^3/uL (4.3-11.0)
[2020-06-24 06:10] LABS: ALBUMIN 3.2 GM/DL (3.2-4.5)
[2020-06-24 06:11] LABS: CHLORIDE 105 MMOL/L (98-107); POTASSIUM 3.9 MMOL/L (3.6-5.0); SODIUM 140 MMOL/L (135-145)
[2020-06-24 06:12] LABS: CALCIUM 8.6 MG/DL (8.5-10.1)
[2020-06-24 06:13] LABS: GLUCOSE 105 MG/DL (70-105); TOTAL PROTEIN 6.9 GM/DL (6.4-8.2)
[2020-06-24 06:14] LABS: CARBON DIOXIDE 25 MMOL/L (21-32)
[2020-06-24 06:15] LABS: BILIRUBIN,TOTAL 0.8 MG/DL (0.1-1.0)
[2020-06-24 06:16] LABS: ALKALINE PHOSPHATASE 203 U/L (40-136)
[2020-06-24 06:17] LABS: CREATININE SERUM 0.99 MG/DL (0.60-1.30); GFR ESTIMATED > 60
[2020-06-24 06:18] LABS: BUN/CREATININE RATIO 23
[2020-06-24 06:19] LABS: ALANINE AMINOTRANSFERASE 17 U/L (0-55)
--- NOTE | 2020-06-24 08:17 | Progress Note - Surgery ---
TORSTEN REMY MED STUDENT 06/24/20 0817: Subjective Date Seen by a Provider: Jun 24, 2020 Time Seen by a Provider: 08:11 Subjective/Events-last exam Pt awake and sitting in chair. Pt in good spirits and feeling much better. Pt notes being up and walking around more/ easier than he had been prior to the paracentesis. Pt denies SOB, chest pain, and abdominal pain. BM yesterday, but not yet today. Review of Systems General: No Chills, No Fatigue HEENT: No Head Aches, No Dysphasia Pulmonary: No Dyspnea, No Cough Cardiovascular: No: Chest Pain, Palpitations Gastrointestinal: No: Nausea, Vomiting Genitourinary: No Dysuria, No Retention Musculoskeletal: No: back pain, leg pain Neurological: No: Weakness, Confusion Objective Exam Vital Signs Date Time Temp Pulse Resp B/P (MAP) Pulse Ox O2 Delivery O2 Flow Rate FiO2 06/24/20 06:54 73 06/24/20 05:04 36.3 64 18 131/62 (85) 99 Room Air 06/24/20 01:04 56 06/24/20 00:52 36.2 60 20 145/61 (89) 98 Room Air 06/23/20 23:50 98 Room Air 06/23/20 21:30 98 Room Air 06/23/20 20:40 36.4 72 24 141/72 (95) 98 Room Air 06/23/20 17:43 68 06/23/20 17:30 99 Room Air 06/23/20 16:34 36.2 64 20 135/63 (87) 99 Room Air 06/23/20 15:21 57 18 125/55 (101) 97 06/23/20 13:30 36.6 57 18 122/91 (101) 97 Room Air I & O 06/24/20 07:00 Intake Total 510 ml Output Total 850 ml Balance -340 ml Capillary Refill : Less Than 3 SecondsLess Than 3 Seconds General Appearance: No Apparent Distress, WD/WN HEENT: PERRL/EOMI Neck: Normal Inspection, Non Tender, Supple Respiratory: Chest Non Tender, No Accessory Muscle Use, No Respiratory Distress, Crackles (minor) Cardiovascular: Regular Rate, Rhythm, No Gallop, No Murmur Gastrointestinal: normal bowel sounds, soft, distended; No guarding, No rebound; hepatomegaly, spleenomegaly Extremity: Normal Capillary Refill, Normal Inspection, Pedal Edema (+3 pedal edema) Neurologic/Psychiatric: Alert, Oriented x3, No Motor/Sensory Deficits, Normal Mood/Affect Skin: Normal Color, Warm/Dry Results Lab Laboratory Tests 06/23/20 13:30: White Blood Count 17.8H, Red Blood Count 3.40L, Hemoglobin 9.9L, Hematocrit 32L, Mean Corpuscular Volume 94, Mean Corpuscular Hemoglobin 29, Mean Corpuscular Hemoglobin Concent 31L, Red Cell Distribution Width 16.1H, Platelet Count 96L, Mean Platelet Volume 10.4, Immature Granulocyte % (Auto) 0, Neutrophils (%) (Auto) 17L, Lymphocytes (%) (Auto) 65H, Monocytes (%) (Auto) 17H, Eosinophils (%) (Auto) 1, Basophils (%) (Auto) 1, Neutrophils # (Auto) 3.0, Lymphocytes # (Auto) 11.6H, Monocytes # (Auto) 3.0H, Eosinophils # (Auto) 0.1, Basophils # (Auto) 0.1, Immature Granulocyte # (Auto) 0.0, Neutrophils % (Manual) 17, Lymphocytes % (Manual) 10, Monocytes % (Manual) 2, Eosinophils % (Manual) 0, Basophils % (Manual) 0, Band Neutrophils 0, Reactive Lymphocytes 71, Anisocytosis SLIGHT, Sodium Level 141, Potassium Level 4.2, Chloride Level 105, Carbon Dioxide Level 26, Anion Gap 10, Blood Urea Nitrogen 25H, Creatinine 1.05, Estimat Glomerular Filtration Rate > 60, BUN/Creatinine Ratio 24, Glucose Level 152H, Calcium Level 8.8, Corrected Calcium 9.3, Total Bilirubin 0.8, Aspartate Amino Transf (AST/SGOT) 31, Alanine Aminotransferase (ALT/SGPT) 20, Alkaline Phosphatase 215H, B-Type Natriuretic Peptide 832.7H, Total Protein 7.4, Albumin 3.4 06/23/20 16:19: Body Fluid Source PERITON, Body Fluid Color YELLOW, Body Fluid Appearance MOD CLDY, Body Fluid WBC 800, Body Fluid RBC 3250, Body Fluid Polynuclear WBCs 2, Body Fluid Mononuclear WBCs 4, Body Fluid Lymphocytes 57, Body Fluid Other Cells 37, Body Fluid Glucose 158, Body Fluid Total Protein 1.8, Body Fluid Lactate Dehydrogenase 57, Body Fluid Amylase 14, Body Fluid Creatinine 0.80 06/24/20 05:20: White Blood Count 16.3H, Red Blood Count 3.42L, Hemoglobin 9.9L, Hematocrit 31L, Mean Corpuscular Volume 92, Mean Corpuscular Hemoglobin 29, Mean Corpuscular Hemoglobin Concent 32, Red Cell Distribution Width 16.1H, Platelet Count 84L, Mean Platelet Volume 10.3, Immature Granulocyte % (Auto) 0, Neutrophils (%) (Aut o) 11L, Lymphocytes (%) (Auto) 68H, Monocytes (%) (Auto) 19H, Eosinophils (%) (Auto) 1, Basophils (%) (Auto) 1, Neutrophils # (Auto) 1.8, Lymphocytes # (Auto) 11.1H, Monocytes # (Auto) 3.1H, Eosinophils # (Auto) 0.1, Basophils # (Auto) 0.1, Immature Granulocyte # (Auto) 0.0, Sodium Level 140, Potassium Level 3.9, Chloride Level 105, Carbon Dioxide Level 25, Anion Gap 10, Blood Urea Nitrogen 23H, Creatinine 0.99, Estimat Glomerular Filtration Rate > 60, BUN/Creatinine Ratio 23, Glucose Level 105, Calcium Level 8.6, Corrected Calcium 9.2, Total Bilirubin 0.8, Aspartate Amino Transf (AST/SGOT) 29, Alanine Aminotransferase (ALT/SGPT) 17, Alkaline Phosphatase 203H, Total Protein 6.9, Albumin 3.2 Microbiology Assessment/Plan Assessment/Plan Assessment/Plan Ascites Hx of CLL RUL Pneumonia CHF SOB resolved Thrombocytopenia - 84 (2/ AM) Leukocytosis - 16.3 (2/ AM) Pt is admitted secondary to SOB, Possibly resolving Pneumonia, and new onset Ascites. Paracentesis (06/23) Cardiology consult- ADRIAN Ruggiero DO 06/24/20 1150: Subjective Time Seen by a Provider: 11:43 Subjective/Events-last exam Pt seen and examined, no new complaints. Tolerating diet and very happy about the paracentesis; "I can move around better". Review of Systems General: No Chills, No Fatigue HEENT: No Head Aches Pulmonary: No Dyspnea, No Cough Cardiovascular: No: Chest Pain, Palpitations Gastrointestinal: No: Nausea, Vomiting Objective Exam General Appearance: No Apparent Distress, WD/WN HEENT: PERRL/EOMI Respiratory: Chest Non Tender, No Accessory Muscle Use, Crackles (minor) Cardiovascular: Regular Rate, Rhythm, No Murmur Gastrointestinal: normal bowel sounds, soft, distended (better than yesterday); No guarding, No rebound; hepatomegaly, spleenomegaly Extremity: Pedal Edema (+3 pedal edema) Assessment/Plan Assessment/Plan Assessment/Plan Ascites Hx of CLL RUL Pneumonia CHF SOB resolved Thrombocytopenia - 84 (2/ AM) Leukocytosis - 16.3 (2/1 AM) Pt is admitted secondary to SOB, Possibly resolving Pneumonia, and new onset Ascites. Paracentesis (06/23) Await pathology from fluid. Supervisory-Addendum Brief Verification & Attestation Participated in pt care: history, MDM, physical Personally performed: exam, history, MDM Care discussed with: Medical Student Procedures: n/a Verification and Attestation of Medical Student E/M Service A medical student performed and documented this service. I then reviewed and verified all information documented by the medical student and made modifications to such information, when appropriate. I personally performed a physical exam, medical decision making and then discussed any differences between the notes and made revisions as necessary to create one note. Adrian Fisher , 06/24/20 , 11:50 TORSTEN REMY MED STUDENT Jun 24, 2020 08:17 ADRIAN FISHER DO Jun 24, 2020 11:50
[2020-06-24] MEDS ORDERED: NS 100 ML (IVPB) BAG IV ONE (10:15)
[2020-06-24] MEDS ORDERED: IOHEXOL 350 MG/ML 100 ML (OMNIPAQUE 350) VIAL IV ONE (10:15)
[2020-06-24] MEDS ORDERED: CATHETER FLUSH 10 ML SYR IV PRN (10:15)
[2020-06-24] MEDS ORDERED: HOLD METFORMIN - RECEIVED CONTRAST 20 ML VIAL IV SCH (10:15)
--- NOTE | 2020-06-24 11:44 | Diagnostic Imaging Report ---
EXAMINATION: CT angiography of the chest, abdomen and pelvis. TECHNIQUE: Contrast enhanced thin section helical images were obtained through the chest, abdomen and pelvis with intravenous contrast timed for the optimal opacification of the arterial structures per CTA protocol. Post-processing, reconstructions and interpretation of angiographic images of the vessels was performed. 3D MIP reconstructions were performed and reviewed. All CT scans use one or more of the following dose optimizing techniques: automated exposure control, MA and/or KvP adjustment based on a patient size and exam type, or iterative reconstruction. HISTORY: Portal hypertension, ascites, and pericardial effusion. COMPARISON: None available. FINDINGS: The ascending aorta is normal in caliber. There are a few valvular calcifications which may represent aortic stenosis. There has been coronary artery bypass grafting. Heart is normal in caliber. Descending aorta is normal in caliber. Abdominal aorta is atherosclerotic but normal in caliber. There is moderate stenosis of the right internal iliac artery. External iliac arteries are tortuous, but there is no stenosis. No evidence for dissection, intramural hematoma or penetrating atherosclerotic ulcer. There is no edema or pneumonia. There is a small right pleural effusion. No pneumothorax. There is a new 5 mm right upper lobe pulmonary nodule. Lung parenchyma is partially obscured by expiratory phase of imaging. There is no axillary or supraclavicular lymphadenopathy. Mildly enlarged mediastinal lymph nodes are likely reactive measuring up to 10 mm. There is mild left anterior descending artery territory infarct. Right ventricle and right atrium are moderately dilated. Pulmonary artery is dilated. There are severe coronary artery calcifications. No pericardial effusion. Aorta is normal in caliber. Liver is nodular consistent with cirrhosis. No suspicious liver lesions are seen. There is no biliary ductal dilation. Gallbladder is normal. Pancreas is normal. Spleen is enlarged. Adrenal glands are normal. The kidneys are normal. There is no hydronephrosis. Urinary bladder is normal. Visualized bowel is normal in caliber without obstruction or inflammation. There is a moderate amount of ascites. No free air. No abdominal or pelvic lymphadenopathy. There are no suspicious osseus lesions. There is trabecular coarsening cortical thickening of the left ilium consistent with Paget's disease. IMPRESSION: 1. Normal caliber aorta without acute aortic syndrome. 2. 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 3. Cirrhotic liver with splenomegaly and moderate ascites. Dictated by: Dictated on workstation # [id number]
--- NOTE | 2020-06-24 13:04 | NUR ---
"RD ASSESSMENT PMHx: afib; CAD; HTN; GERD; chronic constipation; fibromyalgia; CA(ovarian); PT INTERACTION: Pt was awake and pleasant during nutrition consult for MST score. Pt states current appetite is good. Note PO intake 75% x1meal, per chart review. Pt states following a regular diet at home, and has no issues with chewing/swallowing food. Pt states no recent issues with n/v/c/d, and that his last BM was 2/2. Note pt not currently on bowel regimen per chart review. Pt states recent wt gain, attributing it to ascites. Note unable to determine recent wt hx, per chart review. Pt states current DM management is pretty good, and that his average blood glucose levels are in the 130s. NOte unable to determine recent HbA1c, per chart review. Given current PO intake and wt hx, pt is not at risk for malnutrition at this time. Est. kcal needs: 8341-2651 kcal | 20-25 kcal/kg Est. Pro needs: 50-63 g Pro | 0.8-1.0 g Pro/kg PES STATEMENT: Given current PO intake, no nutrition diagnosis at this time (NO-1.1). INTERVENTION: Continue with current diet order of Regular diet. Pt may benefit from consistent CHO restriction as pt has hx of DM. Offered diet education on DM management, but pt declined at this time. May attempt to offer again prior to discharge. Will continue to follow and reassess as pt needs, intake, and status change. Elba MARTINES, MS RD LD [phone] cell"
--- NOTE | 2020-06-24 13:09 | Cardiology Progress Note ---
Subjective Date Seen by Provider: Jun 24, 2020 Time Seen by Provider: 13:07 Subjective/Events-last exam patient is sitting comfortably in a chair, no complaint. Review of Systems General: No Chills, No Night Sweats; Fatigue; No Malaise, No Appetite, No Other HEENT: No Head Aches, No Visual Changes, No Eye Pain, No Ear Pain, No Dysphasia, No Sinus Congestion, No Post Nasal Drip, No Sore Throat, No Other Pulmonary: No Dyspnea, No Cough, No Pleuritic Chest Pain, No Other Cardiovascular: No: Chest Pain, Palpitations, Orthopnea, Paroxysmal Noc. Dyspnea, Edema, Lt Headedness, Other Objective-Cardiology Exam Last Set of Vital Signs Vital Signs 06/24/20 12:00 Temp 36.8 Pulse 65 Resp 18 B/P (MAP) 129/60 (83) Pulse Ox 99 O2 Delivery Room Air Capillary Refill : Less Than 3 SecondsLess Than 3 Seconds I&O Intake and Output 06/24/20 00:00 Intake Total 360 ml Output Total 550 ml Balance -190 ml Intake Oral 360 ml Output Urine Total 550 ml # Voids 1 Daily Weight Change No General: Alert, Oriented X3, Cooperative HEENT: Atraumatic, PERRLA Neck: Supple, No JVD, No Thyromegaly Lungs: Clear to Auscultation, Normal Air Movement Heart: Regular Rate, Normal S1, Normal S2, No Murmurs Abdomen: Normal Bowel Sounds, Soft, No Tenderness, No Hepatosplenomegaly, No Masses, Other (abdominal distention) Extremities: No Clubbing, No Cyanosis, Normal Pulses, No Tenderness/Swelling, Other (pedal edema) Skin: No Rashes, No Breakdown, No Significant Lesion Neuro: Normal Gait, Normal Speech, Strength at 5/5 X4 Ext, Normal Tone, Sensation Intact Psych/Mental Status: Mental Status NL, Mood NL Results Lab Laboratory Tests 06/23/20 13:30 06/24/20 05:20 A/P-Cardiology Admission Diagnosis Anasarca Congestive heart failure Hypertension Hyperlipidemia Assessment/Plan Anasarca, significant fluid overload, workup showed hepatic cirrhosis, unknown etiology, I will evaluate hepatitis profile and patient will need referral for dehydrogenation supervisor evaluation Congestive heart failure, acute on chronic left ventricular diastolic dysfunction, severe pulmonary hypertension, hypertensive heart disease. started on Lasix, add Aldactone and monitor tolerance and response Coronary artery disease, history of CABG done in 2006 using MASSEY to LAD, vein graft to the to the obtuse marginal branch and vein graft to the PDA. Has been doing well last stress test was done in 2018 showing no ischemia Paroxysmal atrial fibrillation noted on EKG in July 2017, frequent PVCs. Fo llowed by Dr. 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
[2020-06-24] MEDS ORDERED: SPIRONOLACTONE 25 MG (ALDACTONE) TAB PO ONE (13:15)
--- NOTE | 2020-06-24 13:47 | Diagnostic Imaging Report ---
INDICATION: Ascites. FINDINGS: Sonographic guidance was provided for Dr. Fisher for performance of a paracentesis. Multiple images demonstrate a large amount of fluid in the right upper and right lower quadrants with moderate fluid in the left lower quadrant. IMPRESSION: Ascites. Sonographic guidance was provided for Dr. Fisher for paracentesis. Dictated by: Dictated on workstation # [id number]
[2020-06-24] MEDS ORDERED: CARV40CP7 PO (14:07)
[2020-06-24] MEDS ORDERED: METF-399 PO (14:07)
[2020-06-24] MEDS ORDERED: DOXE10CA29 PO (14:07)
[2020-06-24] MEDS ORDERED: APIX2.5T PO (14:07)
[2020-06-24] MEDS ORDERED: FURO40TA4 PO (14:07)
[2020-06-24] MEDS ORDERED: LISI-556 PO (14:07)
[2020-06-24] MEDS ORDERED: MELA5TAB14 PO (14:09)
[2020-06-24] MEDS ORDERED: ASPI-1238 PO (14:09)
--- NOTE | 2020-06-24 14:38 | NUR ---
SPOKE WITH THE PT (CALLED THE ROOM PHONE) AND WENT THRU THE EXT MED HISTORY TO COMPLETE THE MED REC OTC MEDS: ASPIRIN 81MG MELATONIN
[2020-06-24] MEDS: FUROSEMIDE 40 MG/4 ML INJ (LASIX) IVP SCH (16:23)
[2020-06-24] MEDS: KCL 20 MEQ TAB (K-DUR) PO SCH (16:23)
[2020-06-24] MEDS: cefTRIAXone 1,000 MG/SWFI 10 ML IV PUSH IV SCH ×2 (16:24)
[2020-06-24] MEDS ORDERED: AZITHROMYCIN 250 MG TAB (ZITHROMAX) PO SCH (17:00)
[2020-06-24 21:22] LABS: HEPATITIS C ANTIBODY C Non-Reactive (Non-Reactive)
[2020-06-24] MEDS: DOXEPIN 10 MG (SINEquan) CAP PO SCH (21:27)
--- NOTE | 2020-06-24 22:28 | Progress Note ---
Subjective Subjective Date Seen by Provider: Jun 24, 2020 Time Seen by Provider: 08:50 85 yo M sitting in recliner- denies any issues breathing today- doing well. He would like to go home on discharge. niece and family would like him to go to assisted living as he is not able to care for himself. pt wondering what caused his ascites. Review of Systems General: No Chills, No Night Sweats HEENT: No Head Aches Pulmonary: Dyspnea (better), Cough Cardiovascular: No: Chest Pain, Palpitations Gastrointestinal: Abdominal Pain (better); No: Nausea, Vomiting Genitourinary: No Dysuria Musculoskeletal: No: back pain, leg pain Neurological: Weakness Objective Exam Vital Signs Vital Signs Date Time Temp Pulse Resp B/P (MAP) Pulse Ox O2 Delivery O2 Flow Rate FiO2 06/24/20 20:28 37.0 99 20 132/72 (92) 100 Room Air 06/24/20 19:00 64 06/24/20 16:00 36.6 71 20 134/72 (92) 98 Room Air 06/24/20 13:00 61 06/24/20 12:00 36.8 65 18 129/60 (83) 99 Room Air 06/24/20 09:00 100 Room Air 06/24/20 08:33 36.1 54 20 132/61 (84) 100 Room Air 06/24/20 06:54 73 06/24/20 05:04 36.3 64 18 131/62 (85) 99 Room Air 06/24/20 01:04 56 06/24/20 00:52 36.2 60 20 145/61 (89) 98 Room Air 06/23/20 23:50 98 Room Air I & O 06/24/20 07:00 Intake Total 510 ml Output Total 850 ml Balance -340 ml General Appearance: No Apparent Distress Eyes: Bilateral Eye Normal Inspection, Bilateral Eye PERRL, Bilateral Eye EOMI HEENT: PERRL/EOMI Neck: Non Tender, Supple Respiratory: Chest Non Tender, Lungs Clear Cardiovascular: Regular Rate, Rhythm, Other (RRR with occassional pvcs) Gastrointestinal: Non Tender, Soft, Distended (improved) Rectal: Deferred Back: No Vertebral Tenderness Extremity: Non Tender, Pedal Edema (2+ lower legs) Neurologic/Psychiatric: Alert, Oriented x3 Skin: Warm/Dry Results Lab Laboratory Tests 2/2/21 05:20: White Blood Count 16.3H, Red Blood Count 3.42L, Hemoglobin 9.9L, Hematocrit 31L, Mean Corpuscular Volume 92, Mean Corpuscular Hemoglobin 29, Mean Corpuscular Hemoglobin Concent 32, Red Cell Distribution Width 16.1H, Platelet Count 84L, Mean Platelet Volume 10.3, Immature Granulocyte % (Auto) 0, Neutrophils (%) (Auto) 11L, Lymphocytes (%) (Auto) 68H, Monocytes (%) (Auto) 19H, Eosinophils (%) (Auto) 1, Basophils (%) (Auto) 1, Neutrophils # (Auto) 1.8, Lymphocytes # (Auto) 11.1H, Monocytes # (Auto) 3.1H, Eosinophils # (Auto) 0.1, Basophils # (Auto) 0.1, Immature Granulocyte # (Auto) 0.0, Sodium Level 140, Potassium Level 3.9, Chloride Level 105, Carbon Dioxide Level 25, Anion Gap 10, Blood Urea Nitrogen 23H, Creatinine 0.99, Estimat Glomerular Filtration Rate > 60, BUN/Creatinine Ratio 23, Glucose Level 105, Calcium Level 8.6, Corrected Calcium 9.2, Total Bilirubin 0.8, Aspartate Amino Transf (AST/SGOT) 29, Alanine Aminotra nsferase (ALT/SGPT) 17, Alkaline Phosphatase 203H, Total Protein 6.9, Albumin 3.2, Hepatitis A IgM Antibody Non-Reactive, Hepatitis B Surface Antigen Non- Reactive, Hepatitis B Core IgM Antibody Non-Reactive, Hepatitis C Antibody Non-Reactive Microbiology 06/23/20 Gram Stain - Final, Resulted 06/23/20 Anaerobic Culture, Resulted Pending 06/23/20 Surgical Culture - Preliminary, Resulted No growth Assessment/Plan Assessment/Plan Admission Dx acute on chronic diastolic heart failure- Assessment and Plan admitted 06/23/20 on rocephin, azithromycin for pneumonia- he is on room air and breathing is significantly better after paracentesis so likely the pneumonia is of low significance in his breathing issues. -continue diuresis with IV lasix -will transition to po on discharge. -will need further imaging to evaluate the ascites. -monitor lytes Dr. Trevino, Dr. Fisher consulted. 06/24/20- CT chest/abdomen/pelvis done showing hepatic cirrhosis- hepatitis a/b/c negative. Will need referred on to gastroenterology. Likely will need repeat paracentesis in future. -will diurese one more day and then discharge back to home unless he decides he would agree to assisted living. DVT ppx: chemoppx not used as his platelets <100. Problems: (1) Acute on chronic diastolic (congestive) heart failure (2) CLL (chronic lymphocytic leukemia) (3) Non-insulin dependent type 2 diabetes mellitus Assessment & Plan: sliding scale insulin if blood sugars become elevated. (4) Essential (primary) hypertension (5) Pneumonia Assessment & Plan: on rocephin, azithromycin -room air (6) Anasarca Admission Dx acute on chronic diastolic heart failure- Clinical Quality Measures Admission Status Admission Dx acute on chronic diastolic heart failure- AGUSTIN CARLSON MD Jun 24, 2020 22:28
[2020-06-25 04:35] VITALS: BP 130/64
[2020-06-25] MEDS ORDERED: REGADENOSON 0.4 MG/5 ML SYR (LEXISCAN) IV ONE (07:00)
--- NOTE | 2020-06-25 07:26 | Progress Note - Surgery ---
TORSTEN REMY MED STUDENT 06/25/20 0726: Subjective Date Seen by a Provider: Jun 25, 2020 Time Seen by a Provider: 07:21 Subjective/Events-last exam Pt waking up when entering. Pt doing well and has no complaints. Denies BM since arriving and denies flatus, but urinating fine. Interested in being discharged. No acute events over night. Review of Systems General: No Chills; Fatigue HEENT: No Head Aches, No Dysphasia Pulmonary: No Dyspnea, No Cough Cardiovascular: No: Chest Pain, Palpitations Gastrointestinal: Constipation; No: Nausea, Vomiting Genitourinary: No Frequency, No Retention Musculoskeletal: No: back pain, leg pain Neurological: No: Weakness, Confusion Objective Exam Vital Signs Date Time Temp Pulse Resp B/P (MAP) Pulse Ox O2 Delivery O2 Flow Rate FiO2 06/25/20 04:35 36.4 53 20 130/64 (86) 96 Room Air 06/25/20 01:00 50 06/24/20 23:49 36.6 66 20 140/64 (89) 98 Room Air 06/24/20 21:00 99 Room Air 06/24/20 20:28 37.0 99 20 132/72 (92) 100 Room Air 06/24/20 19:00 64 06/24/20 16:00 36.6 71 20 134/72 (92) 98 Room Air 06/24/20 13:00 61 06/24/20 12:00 36.8 65 18 129/60 (83) 99 Room Air 06/24/20 09:00 100 Room Air 06/24/20 08:33 36.1 54 20 132/61 (84) 100 Room Air I & O 06/25/20 06:59 Intake Total 970 ml Output Total 1465 ml Balance -495 ml Capillary Refill : Less Than 3 SecondsLess Than 3 Seconds General Appearance: No Apparent Distress, WD/WN HEENT: PERRL/EOMI, Moist Mucous Membranes Neck: Non Tender, Supple Respiratory: Chest Non Tender, Lungs Clear, Normal Breath Sounds, No Accessory Muscle Use, No Respiratory Distress Cardiovascular: Regular Rate, Rhythm, No Gallop, No Murmur Gastrointestinal: normal bowel sounds, soft, distended; No guarding, No rebound; hepatomegaly, spleenomegaly Extremity: Non Tender, Pedal Edema (2+ lower legs) Neurologic/Psychiatric: Alert, Oriented x3, Normal Mood/Affect Skin: Normal Color, Warm/Dry Lymphatic: No Adenopathy (cervical & axillary) Results Lab Microbiology 06/23/20 Gram Stain - Final, Resulted 06/23/20 Anaerobic Culture, Resulted Pending 06/23/20 Surgical Culture - Preliminary, Resulted No growth Assessment/Plan Assessment/Plan Assessment/Plan Ascites Hx of CLL RUL Pneumonia CHF SOB resolved Thrombocytopenia - 84 (2/2 AM) Leukocytosis - 16.3 (2/2 AM) Pt admitted secondary to SOB, Possibly resolving Pneumonia, and new onset Ascites. Paracentesis (06/23) Cardiology consult- Dr. Trevino Plan to discharge today JAYMARYSECASEY DO 06/25/20 0944: Subjective Time Seen by a Provider: 09:18 Subjective/Events-last exam Pt seen and examined, sitting up at bedside. Pt states he is doing fine and being sent home today. Review of Systems General: No Chills; Fatigue Pulmonary: No Dyspnea, No Cough Cardiovascular: No: Chest Pain, Palpitations Gastrointestinal: Constipation; No: Nausea, Vomiting Objective Exam General Appearance: No Apparent Distress, WD/WN HEENT: PERRL/EOMI, Moist Mucous Membranes Respiratory: Lungs Clear, Normal Breath Sounds, No Accessory Muscle Use Cardiovascular: Regular Rate, Rhythm, No Murmur Gastrointestinal: soft, distended (minimal, may just be body habitus; does not look different from yesterday); No guarding, No rebound; hepatomegaly, splee nomegaly Assessment/Plan Assessment/Plan Assessment/Plan Ascites Hx of CLL RUL Pneumonia CHF SOB resolved Thrombocytopenia - 84 (2/2 AM) Leukocytosis - 16.3 (2/2 AM) Pt admitted secondary to SOB, Possibly resolving Pneumonia, and new onset Ascites. Paracentesis (06/23) Cardiology consult- Dr. Trevino Plan to discharge today and pt can be seen as an outpt in my offc. Supervisory-Addendum Brief Verification & Attestation Participated in pt care: history, MDM, physical Personally performed: exam, history, MDM Care discussed with: Medical Student Procedures: n/a Verification and Attestation of Medical Student E/M Service A medical student performed and documented this service. I then reviewed and verified all information documented by the medical student and made modifications to such information, when appropriate. I personally performed a physical exam, medical decision making and then discussed any differences between the notes and made revisions as necessary to create one note. Casey Fisher , 06/25/20 , 09:44 TORSTEN REMY MED STUDENT Jun 25, 2020 07:26 CASEY FISHER DO Jun 25, 2020 09:44
[2020-06-25 08:00] VITALS: BP 154/54
--- NOTE | 2020-06-25 08:17 | NUR ---
CALLED DR ALVAREZ TO VERIFY THAT HE WANTS THE LEXISCAN DONE TODAY., HE DOES.
[2020-06-25] MEDS ORDERED: SPIRONOLACTONE 25 MG (ALDACTONE) TAB PO SCH (09:00)
[2020-06-25] MEDS ORDERED: LOSARTAN 25 MG (COZAAR) TAB PO SCH (09:00)
[2020-06-25] MEDS ORDERED: SPIR25TA5 PO (10:08)
[2020-06-25] MEDS ORDERED: FURO40TA4 PO (10:08)
[2020-06-25] MEDS ORDERED: LOSA25TA41 PO (10:08)
[2020-06-25] MEDS ORDERED: AZIT250T12 PO (10:08)
--- NOTE | 2020-06-25 10:12 | D/C HH Face to Face Order ---
D/C Face to Face Orders Reconcile Patient Problems Problems Reviewed?: Yes Instructions for Patient Via [employer], Patient Instructions/FollowUp: Follow up at [facility] already booked. Physician to follow Patient: eZus Carlson MD Discharge Diet for Home: ADA Diet Patient Problems: shortness of breath acute on chronic congestive diastolic heart failure hepatic cirrhosis Patient Data-Allergies,Ht & Wt Patient Allergies: Coded Allergies: No Known Drug Allergies (Unverified , 09/04/15) Height (Feet): 5 Height (Inches): 6.00 Weight (Pounds): 185 Weight (Ounces): 0.0 Home Health Need/Face to Face Date of Face to Face: Jun 25, 2020 Clinical Findings: Generalized weakness and fatigue, Instability, Muscle weakness, Shortness of breath, Unsteady gait I have seen Pt [id number]: Yes Discharged To: Home Diagnosis/Conditions: shortness of breath acute on chronic congestive diastolic heart failure hepatic cirrhosis Problems/Diagnosis/Condition: (1) CAD (coronary artery disease) (2) CLL (chronic lymphocytic leukemia) (3) Non-insulin dependent type 2 diabetes mellitus (4) Acute on chronic diastolic (congestive) heart failure (5) Essential (primary) hypertension Patient is Homebound due to: CognItive deficits, Jason fall risk due to instabilty, Muscle weakness, Shortness of breath/distress Homebound Status Due to the above stated illness, injury or surgical procedure (medical condition or diagnosis) and associated clinical findings, the patient is homebound because of his/her inability to leave home except with aid of a supportive device and/or person AND leaving the home requires a considerable and taxing effort or is medically contraindicated. Pt req the following assistanc: Cane (if he leaves the house- would benefit from a cane) Home Health Infusion Therapy Line Start Date: Jun 23, 2020 Therapy Orders Therapy Orders: Physical Therapy Therapy Specific Orders: Teach strategies/cognitive deficits, Increase strength/endurance Certify Stmt I certify that this patient is under my care and that I, a nurse practitioner or a physician; a curriculum assistant principal working with me, had a face to face encounter that - meets the physician face to face encounter requirements with this patient as dated. ZEUS CARLSON MD Jun 25, 2020 10:12
--- NOTE | 2020-06-25 10:14 | Discharge Summary ---
Discharge Summary Hospital Course Problems/Dx: (1) Acute on chronic diastolic (congestive) heart failure (2) CLL (chronic lymphocytic leukemia) Status: Chronic (3) Non-insulin dependent type 2 diabetes mellitus (4) Essential (primary) hypertension (5) Pneumonia Status: Resolved (6) Anasarca Status: Acute Hospital Course Date of Admission: Jun 23, 2020 at 14:39 Admission Diagnosis : (1) Acute on chronic diastolic (congestive) heart failure (2) CLL (chronic lymphocytic leukemia) (3) Non-insulin dependent type 2 diabetes mellitus (4) Essential (primary) hypertension (5) Pneumonia (6) Anasarca Family Physician/Provider: [facility] Date of Discharge: 06/25/20 Discharge Diagnosis: (1) Acute on chronic diastolic (congestive) heart failure (2) CLL (chronic lymphocytic leukemia) (3) Non-insulin dependent type 2 diabetes mellitus (4) Essential (primary) hypertension (5) Pneumonia (6) Anasarca (7) Ascites due to hepatic cirrhosis and acute on chronic diastolic heart failure. Hospital Course: admitted 06/23/20 on rocephin, azithromycin for pneumonia- he is on room air and breathing is significantly better after paracentesis so likely the pneumonia is of low significance in his breathing issues. -continue diuresis with IV lasix -will transition to po on discharge. -will need further imaging to evaluate the ascites. -monitor lytes Dr. Trevino, Dr. Fisher consulted. 06/24/20- CT chest/abdomen/pelvis done showing hepatic cirrhosis- hepatitis a/b /c negative. Will need referred on to gastroenterology. Likely will need repeat paracentesis in future. -will diurese one more day and then discharge back to home unless he decides he would agree to assisted living. Ascites attributed to hepatic cirrhosis and acute on chronic congestive heart failure. Discharged to home 06/25/20- Dr. Trevino was going to do a chemical stress test but patient decided to wait on this for a couple reasons: 1. Dr. Trevino was okay with him going home yesterday and 2. Dr. Trevino did not come back and tell him he wanted to do a stress test; he just ordered it. Patient was frustrated. I discussed with patient the reason why Dr. Trevino wanted to assess his heart further but patient has the autonomy to make his medical decisions. Problems: (1) Acute on chronic diastolic (congestive) heart failure (2) CLL (chronic lymphocytic leukemia) (3) Non-insulin dependent type 2 diabetes mellitus Assessment & Plan: sliding scale insulin if blood sugars become elevated. (4) Essential (primary) hypertension (5) Pneumonia Assessment & Plan: on rocephin, azithromycin -room air (6) Anasarca Admission Dx acute on chronic diastolic heart failure- Labs and Pending Lab Test: Microbiology 06/23/20 Gram Stain - Final, Resulted 06/23/20 Anaerobic Culture, Resulted Pending 06/23/20 Surgical Culture - Preliminary, Resulted No growth Home Meds Active Spironolactone 25 Mg Tablet 25 Mg PO DAILY Losartan Potassium 25 Mg Tablet 25 Mg PO DAILY Azithromycin 250 Mg Tablet 250 Mg PO DAILY@1700 Furosemide 40 Mg Tablet 40 Mg PO DAILY FILLED 06-20-2020 #10 DAY SUPPLY Reported Melatonin 5 Mg Tablet 5 Mg PO HS Aspirin EC (Aspirin) 81 Mg Tablet.dr 81 Mg PO BID Metformin HCl 1,000 Mg Tablet 1,000 Mg PO BID Eliquis (Apixaban) 2.5 Mg Tablet 2.5 Mg PO BID Carvedilol ER (Carvedilol Phosphate) 40 Mg Cpmp.24hr 40 Mg PO DAILY Lisinopril 5 Mg Tablet 5 Mg PO DAILY Doxepin HCl 10 Mg Capsule 10 Mg PO HS Glipizide 10 Mg Tablet 10 Mg PO DAILY Onglyza (Saxagliptin HCl) 5 Mg Tablet 5 Mg PO DAILY Simvastatin 20 Mg Tablet 20 Mg PO HS Assessment/Pt Instructions Note your medication changes- bring your medications and list of medications to your follow up visit at [facility]. -will need to follow up with a liver doctor (child and adolescent psychologist) to further evaluate your liver cirrhosis. Discharge Planning: >30 minutes discharge planning Discharge Instructions Discharge Diet: ADA Diet Activity as Tolerated: Yes Discharge Physical Examination Vital Signs Vital Signs Date Time Temp Pulse Resp B/P (MAP) Pulse Ox O2 Delivery O2 Flow Rate FiO2 06/25/20 09:00 96 Room Air 06/25/20 04:35 36.4 53 20 130/64 (86) General Appearance: No Apparent Distress HEENT: PERRL/EOMI Respiratory: Lungs Clear Cardiovascular: Regular Rate, Rhythm Gastrointestinal: Non Tender, Soft Extremity: Non Tender, No Calf Tenderness Skin: Normal Color, Warm/Dry Neurologic/Psychiatric: Alert, Oriented x3 Allergies: Coded Allergies: No Known Drug Allergies (Unverified , 09/04/15) Discharge Summary Date of Admission Jun 23, 2020 at 14:39 Date of Discharge Discharge Diagnosis (1) Acute on chronic diastolic (congestive) heart failure (2) CLL (chronic lymphocytic leukemia) Status: Chronic (3) Non-insulin dependent type 2 diabetes mellitus Assessment & Plan: sliding scale insulin if blood sugars become elevated. (4) Essential (primary) hypertension (5) Pneumonia Status: Resolved Assessment & Plan: on rocephin, azithromycin -room air (6) Anasarca Status: Acute AGUSTIN CARLSON MD Jun 25, 2020 10:14
--- NOTE | 2020-06-25 10:17 | Cardiology Progress Note ---
Subjective Date Seen by Provider: Jun 25, 2020 Time Seen by Provider: 10:17 Subjective/Events-last exam Denies any chest pain Review of Systems General: No Chills, No Night Sweats, No Fatigue, No Malaise, No Appetite, No Other HEENT: No Head Aches, No Visual Changes, No Eye Pain, No Ear Pain, No Dysphasia, No Sinus Congestion, No Post Nasal Drip, No Sore Throat, No Other Pulmonary: No Dyspnea, No Cough, No Pleuritic Chest Pain, No Other Cardiovascular: No: Chest Pain, Palpitations, Orthopnea, Paroxysmal Noc. Dyspnea, Edema, Lt Headedness, Other Objective-Cardiology Exam Last Set of Vital Signs Vital Signs 06/25/20 11:05 Temp 36.4 Pulse 58 Resp 18 B/P (MAP) 154/54 Pulse Ox 96 O2 Delivery Room Air Capillary Refill : Less Than 3 SecondsLess Than 3 Seconds I&O Intake and Output 06/25/20 00:00 Intake Total 920 ml Output Total 1765 ml Balance -845 ml Intake Oral 910 ml IV Total 10 ml Output Urine Total 1765 ml General: Alert, Oriented X3, Cooperative HEENT: Atraumatic, PERRLA Neck: Supple, No JVD, No Thyromegaly Lungs: Clear to Auscultation, Normal Air Movement Heart: Regular Rate, Normal S1, Normal S2, No Murmurs Abdomen: Normal Bowel Sounds, Soft, No Tenderness, No Hepatosplenomegaly, No Masses, Other (abdominal distention) Extremities: No Clubbing, No Cyanosis, Normal Pulses, No Tenderness/Swelling, Other (pedal edema) Skin: No Rashes, No Breakdown, No Significant Lesion Neuro: Normal Gait, Normal Speech, Strength at 5/5 X4 Ext, Normal Tone, Sensation Intact Psych/Mental Status: Mental Status NL, Mood NL A/P-Cardiology Admission Diagnosis Anasarca Congestive heart failure Hypertension Hyperlipidemia Assessment/Plan Anasarca, significant fluid overload, workup showed hepatic cirrhosis, unknown etiology, I will evaluate hepatitis profile and patient will need referral for intensive care unit nurse evaluation Congestive heart failure, acute on chronic left ventricular diastolic dysfunction, severe pulmonary hypertension, hypertensive heart disease. started on Lasix, add Aldactone and monitor tolerance and response Coronary artery disease, history of CABG done in 2006 using MASSEY to LAD, vein graft to the to the obtuse marginal branch and vein graft to the PDA. Has been doing well last stress test was done in 2018 showing no ischemia Paroxysmal atrial fibrillation noted on EKG in July 2017, frequent PVCs. Followed by Dr. 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 Johnson Patient was seen and evaluated with Radha, examination performed, management plan was discussed, agree with the current scribed note, I made few changes to the note using Italic font Patient was seen at bedside sitting comfortably, I have scheduled him for Lexiscan stress test this morning, patient demanded to eat and refused to do the test, reported that he will agree on having it done as an outpatient to future He denied any active chest pain, recommended diuretics, monitoring the patient referral for intensive care unit nurse. Arrangement for follow-up with Dr. Johnson. RADHA FRENCH Jun 25, 2020 10:17 HAWA ALVAREZ MD Jun 25, 2020 12:50
[2020-06-25 11:05] VITALS: BP 154/54
--- NOTE | 2020-06-26 14:09 | Physician Query Clarification ---
PQ-Further Specificity Admission/Discharge Admission Date: Jun 23, 2020 at 14:39 Discharge Date: Jun 25, 2020 at 11:05 Dr. Carlson, The medical record reflects the following clinical scenario: History/Risk Factors: acute on chronic diastolic CHF w/HTN, ascites, CLL, cirrhosis liver, pneumonia Clinical Findings: exertional dyspnea, 12 lb weight gain in past week, abdominal pain, CT abd - cirrhosis liver Treatment: paracentesis, IVP 40 mg Lasix Question: Can you further specify the underlying cause of the ascites per the clinical indicators above? Please document a response in the Progress Notes or Discharge Summary. 1. cirrhosis of the liver 2. acute on chronic diastolic CHF 3. Other, with explanation of the clinical findings. 4. Clinically undetermined, no explanation for the clinical findings. PHYSICIAN RESPONSE Can you specify per above: 1 Explanation/Clinical Findings both liver cirrhosis and acute on chronic diastolic heart failure are contributing to his ascites. Please remember a lack of response to the above will prompt a phone page by [facility] staff. In responding to this query, please exercise your independent professional judgment. The purpose of this communication is to more accurately reflect the complexity of your patients condition. The fact that a question is asked does not imply that any particular answer is desired or expected. Thank you for your timely response to this clarification. Requestors name: [email or web address] THIS PHYSICIAN QUERY FORM IS A PERMANENT PART OF THE MEDICAL RECORD KIM GALLEGOS Jun 26, 2020 14:09 AGUSTIN CARLSON MD Jun 28, 2020 12:59
== END 2020-06-25 11:05 | disposition home health service (06) | DRG 432 ==
LOC: EDUNIT# 13:21 → ER 13:23 → 4TH 14:39
PROVIDERS: ADMIT Family Medicine; ATTEND Family Medicine
PROC: 0W9G3ZZ Drainage of Peritoneal Cavity, Percutaneous Approach (ICD-10-PCS; principal; 2020-06-23)
DX: K74.60 Unspecified cirrhosis of liver (principal); J18.9 Pneumonia, unspecified organism; I50.33 Acute on chronic diastolic (congestive) heart failure; R18.8 Other ascites; C91.10 Chronic lymphocytic leukemia of B-cell type not having achieved remission; I11.0 Hypertensive heart disease with heart failure; J44.9 Chronic obstructive pulmonary disease, unspecified; E11.9 Type 2 diabetes mellitus without complications; I48.0 Paroxysmal atrial fibrillation; I27.20 Pulmonary hypertension, unspecified; E78.5 Hyperlipidemia, unspecified; I25.10 Atherosclerotic heart disease of native coronary artery without angina pectoris; M19.91 Primary osteoarthritis, unspecified site; H91.93 Unspecified hearing loss, bilateral; Z97.4 Presence of external hearing-aid; Z87.01 Personal history of pneumonia (recurrent); Z95.1 Presence of aortocoronary bypass graft; Z86.73 Personal history of transient ischemic attack (TIA), and cerebral infarction without residual deficits; Z79.01 Long term (current) use of anticoagulants; Z79.84 Long term (current) use of oral hypoglycemic drugs; Z79.82 Long term (current) use of aspirin
CPT/HCPCS: 36415; 49083; 71045; 71275; 74174; 80053; 80074; 82150; 82570; 82945; 83615; 83880; 84157; 85007; 85025; 85027; 87070; 87075; 87205; 88112; 88305; 88341; 88342; 89051; 93005; 93306; 94760

== ENCOUNTER 2020-07-30 13:01 | Outpatient (RCR) | payer MEDICARE, OTHER ==
[2020-06-02 09:53] LABS: BASOPHILS % (AUTO) 0 % (0-10); EOSINOPHILS # (AUTO) 0.2 10^3/uL (0.0-0.3); EOSINOPHILS % (AUTO) 1 % (0-10); HEMATOCRIT 36 % (40-54); HEMOGLOBIN 10.9 g/dL (13.3-17.7); LYMPHOCYTES # (AUTO) 17.3 10^3/uL (1.0-4.0); LYMPHOCYTES % (AUTO) 69 % (12-44); MEAN CORPUSCULAR HEMOGLOBIN 29 pg (25-34); MEAN CORPUSCULAR HGB CONC 31 g/dL (32-36); MEAN CORPUSCULAR VOLUME 95 fL (80-99); MONOCYTES # (AUTO) 4.4 10^3/uL (0.0-1.0); MONOCYTES % (AUTO) 18 % (0-12); NEUTROPHILS # (AUTO) 3.2 10^3/uL (1.8-7.8); NEUTROPHILS % (AUTO) 13 % (42-75); PLATELET COUNT 93 10^3/uL (130-400); WHITE BLOOD COUNT 25.1 10^3/uL (4.3-11.0)
[2020-06-02 10:13] LABS: ALANINE AMINOTRANSFERASE 23 U/L (0-55); ALBUMIN 3.5 GM/DL (3.2-4.5); ALKALINE PHOSPHATASE 251 U/L (40-136); BILIRUBIN,TOTAL 0.8 MG/DL (0.1-1.0); BUN/CREATININE RATIO 16; CARBON DIOXIDE 18 MMOL/L (21-32); CHLORIDE 108 MMOL/L (98-107); CREATININE SERUM 1.02 MG/DL (0.60-1.30); GFR ESTIMATED > 60; GLUCOSE 186 MG/DL (70-105); POTASSIUM 5.5 MMOL/L (3.6-5.0); SODIUM 137 MMOL/L (135-145); TOTAL PROTEIN 7.4 GM/DL (6.4-8.2)
[2020-06-02 10:58] LABS: ATYPICAL LYMPHOCYTES 13 %; BAND NEUTROPHILS 0 %; BASOPHILS % (MANUAL) 0 %; EOSINOPHILS % (MANUAL) 0 %; LYMPHOCYTES % (MANUAL) 75 %; MONOCYTES % (MANUAL) 1 %; NEUTROPHILS % (MANUAL) 11 %
[2020-06-02 10:59] LABS: ANISOCYTOSIS SLIGHT; ELLIPT/OVALOCYTES SLIGHT
[2020-07-28 09:28] LABS: BASOPHILS # (AUTO) 0.1 10^3/uL (0.0-0.1); BASOPHILS % (AUTO) 1 % (0-10); EOSINOPHILS # (AUTO) 0.2 10^3/uL (0.0-0.3); EOSINOPHILS % (AUTO) 2 % (0-10); HEMATOCRIT 31 % (40-54); HEMOGLOBIN 9.7 g/dL (13.3-17.7); LYMPHOCYTES # (AUTO) 7.2 10^3/uL (1.0-4.0); LYMPHOCYTES % (AUTO) 55 % (12-44); MEAN CORPUSCULAR HEMOGLOBIN 29 pg (25-34); MEAN CORPUSCULAR HGB CONC 31 g/dL (32-36); MEAN CORPUSCULAR VOLUME 92 fL (80-99); MEAN PLATELET VOLUME 9.8 fL (9.0-12.2); MONOCYTES # (AUTO) 2.9 10^3/uL (0.0-1.0); MONOCYTES % (AUTO) 22 % (0-12); NEUTROPHILS # (AUTO) 2.8 10^3/uL (1.8-7.8); NEUTROPHILS % (AUTO) 21 % (42-75); PLATELET COUNT 108 10^3/uL (130-400); WHITE BLOOD COUNT 13.2 10^3/uL (4.3-11.0)
[2020-07-28 09:56] LABS: ALANINE AMINOTRANSFERASE 37 U/L (0-55); ALBUMIN 3.4 GM/DL (3.2-4.5); ALKALINE PHOSPHATASE 363 U/L (40-136); BILIRUBIN,TOTAL 0.8 MG/DL (0.1-1.0); BUN/CREATININE RATIO 24; CALCIUM 8.7 MG/DL (8.5-10.1); CARBON DIOXIDE 18 MMOL/L (21-32); CHLORIDE 108 MMOL/L (98-107); CREATININE SERUM 1.05 MG/DL (0.60-1.30); GFR ESTIMATED > 60; GLUCOSE 235 MG/DL (70-105); POTASSIUM 4.7 MMOL/L (3.6-5.0); SODIUM 136 MMOL/L (135-145); TOTAL PROTEIN 7.4 GM/DL (6.4-8.2)
[2020-07-28 10:27] LABS: NEUTROPHILS % (MANUAL) 19 %
[2020-07-28 10:28] LABS: ANISOCYTOSIS SLIGHT; BAND NEUTROPHILS 1 %; LYMPHOCYTES % (MANUAL) 60 %; MONOCYTES % (MANUAL) 20 %
[~2020-07-30 13:01] MED LIST changes: +ASPI-1238 PO; +AZIT250T12 PO; +CARV40CP7 PO; +DOXE10CA29 PO; +FURO40TA4 PO; +LISI-729 PO; +LOSA25TA41 PO; +MELA5TAB14 PO; +SPIR25TA5 PO
== END 2020-08-31 | disposition home or self-care (01) ==
LOC: ONC 13:01
PROVIDERS: ATTEND Internal Medicine Hematology & Oncology
DX: C91.10 Chronic lymphocytic leukemia of B-cell type not having achieved remission (principal); I25.10 Atherosclerotic heart disease of native coronary artery without angina pectoris; E11.9 Type 2 diabetes mellitus without complications; I10 Essential (primary) hypertension; E78.00 Pure hypercholesterolemia, unspecified; N40.0 Benign prostatic hyperplasia without lower urinary tract symptoms; H90.6 Mixed conductive and sensorineural hearing loss, bilateral; I49.3 Ventricular premature depolarization; M19.90 Unspecified osteoarthritis, unspecified site; D63.0 Anemia in neoplastic disease; D50.9 Iron deficiency anemia, unspecified; J32.3 Chronic sphenoidal sinusitis; Z79.899 Other long term (current) drug therapy; Z95.1 Presence of aortocoronary bypass graft; Z86.73 Personal history of transient ischemic attack (TIA), and cerebral infarction without residual deficits; Z90.49 Acquired absence of other specified parts of digestive tract; Z98.890 Other specified postprocedural states
CPT/HCPCS: 80053; 82728; 83540; 85007; 85027; G0463; 99213

== ENCOUNTER → 2020-08-11 | Outpatient (CLI) | payer MEDICARE, OTHER ==
--- NOTE | 2020-08-11 08:13 | Diagnostic Imaging Report ---
EXAMINATION: US Abdomen complete. TECHNIQUE: Multiple real-time grayscale images were obtained over the right upper quadrant in various projections. HISTORY: ASCITES COMPARISON: CT chest abdomen pelvis 10/29/2015 FINDINGS: Pancreas: The visualized portions of the pancreas are normal. Liver: Heterogeneous echogenicity and nodular contour of the liver. No focal lesions are seen. The portal vein is patent with hepatopetal flow. Gallbladder and biliary tree: There is mild gallbladder wall thickening without pericholecystic fluid or sonographic Swartz sign. No visualized gallstones. There is no biliary ductal dilation. The common duct measures 0.4 cm. Kidneys: The right kidney is normal without hydronephrosis. The left kidney is normal without hydronephrosis. Spleen: The spleen is enlarged measuring up to 21.5 cm. Aorta and IVC: The visualized aorta and inferior vena cava are normal. Fluid: There is mild to moderate ascites. IMPRESSION: 1. Cirrhosis without findings of hepatocellular carcinoma. 2. Sequela portal hypertension including ascites and splenomegaly. 3. Mild gallbladder wall thickening without stones or sonographic Swartz sign. This likely represents reactive wall thickening secondary to underlying liver disease. Dictated by: Dictated on workstation # [id number]
== END ==
LOC: RAD 06:49
PROVIDERS: ATTEND Surgery
DX: K74.60 Unspecified cirrhosis of liver (principal); K76.6 Portal hypertension; K82.8 Other specified diseases of gallbladder
CPT/HCPCS: 76700

== ENCOUNTER → 2022-01-18 | Outpatient (CLI) | payer MEDICARE, OTHER ==
[~2022-01-18] MED LIST changes: -LISI-729 PO; +LISI5TAB20 PO
[2022-01-18 10:22] LABS: BASOPHILS # (AUTO) 0.1 10^3/uL (0.0-0.1); BASOPHILS % (AUTO) 0 % (0-10); EOSINOPHILS % (AUTO) 1 % (0-10); HEMOGLOBIN 8.7 g/dL (13.3-17.7)
[2022-01-18 10:23] LABS: EOSINOPHILS # (AUTO) 0.3 10^3/uL (0.0-0.3); HEMATOCRIT 26 % (40-54); LYMPHOCYTES % (AUTO) 68 % (12-44); MEAN CORPUSCULAR HEMOGLOBIN 29 pg (25-34); MEAN CORPUSCULAR HGB CONC 34 g/dL (32-36); MEAN CORPUSCULAR VOLUME 86 fL (80-99); MEAN PLATELET VOLUME 9.6 fL (9.0-12.2); MONOCYTES # (AUTO) 10.8 10^3/uL (0.0-1.0); MONOCYTES % (AUTO) 22 % (0-12); NEUTROPHILS % (AUTO) 8 % (42-75); PLATELET COUNT 129 10^3/uL (130-400)
[2022-01-18 10:47] LABS: WHITE BLOOD COUNT 48.3 10^3/uL (4.3-11.0)
[2022-01-18 11:12] LABS: ANISOCYTOSIS SLIGHT; BAND NEUTROPHILS 0 %; BASOPHILS % (MANUAL) 0 %; EOSINOPHILS % (MANUAL) 0 %; LYMPHOCYTES % (MANUAL) 14 %; MONOCYTES % (MANUAL) 9 %; NEUTROPHILS % (MANUAL) 12 %; REACTIVE LYMPHOCYTES 65 %
== END ==
LOC: LABNPT 10:14
DX: C91.90 Lymphoid leukemia, unspecified not having achieved remission (principal)
CPT/HCPCS: 85007; 85027

== ENCOUNTER → 2022-03-22 | Outpatient (CLI) | payer MEDICARE, OTHER ==
[2022-03-22 10:30] LABS: EOSINOPHILS % (AUTO) 0 % (0-10); HEMOGLOBIN 8.5 g/dL (13.3-17.7); MEAN CORPUSCULAR VOLUME 85 fL (80-99); MONOCYTES % (AUTO) 24 % (0-12)
[2022-03-22 10:32] LABS: BASOPHILS # (AUTO) 0.1 10^3/uL (0.0-0.1); BASOPHILS % (AUTO) 0 % (0-10); EOSINOPHILS # (AUTO) 0.2 10^3/uL (0.0-0.3); HEMATOCRIT 25 % (40-54); LYMPHOCYTES # (AUTO) 43.4 10^3/uL (1.0-4.0); LYMPHOCYTES % (AUTO) 67 % (12-44); MEAN CORPUSCULAR HEMOGLOBIN 29 pg (25-34); MEAN CORPUSCULAR HGB CONC 34 g/dL (32-36); MEAN PLATELET VOLUME 9.3 fL (9.0-12.2); MONOCYTES # (AUTO) 15.7 10^3/uL (0.0-1.0); NEUTROPHILS # (AUTO) 5.4 10^3/uL (1.8-7.8); NEUTROPHILS % (AUTO) 8 % (42-75); PLATELET COUNT 136 10^3/uL (130-400)
[2022-03-22 10:42] LABS: INR 1.1 (0.8-1.4); PROTHROMBIN TIME PATIENT 14.3 SEC (12.2-14.7)
[2022-03-22 10:50] LABS: ALBUMIN 3.5 GM/DL (3.2-4.5); BILIRUBIN,TOTAL 0.4 MG/DL (0.1-1.0); CALCIUM 9.4 MG/DL (8.5-10.1); CREATININE SERUM 1.44 MG/DL (0.60-1.30); POTASSIUM 5.7 MMOL/L (3.6-5.0); TOTAL PROTEIN 7.5 GM/DL (6.4-8.2)
[2022-03-22 11:51] LABS: ANISOCYTOSIS SLIGHT; ATYPICAL LYMPHOCYTES 10 %; EOSINOPHILS % (MANUAL) 2 %; LYMPHOCYTES % (MANUAL) 60 %; MICROCYTOSIS SLIGHT; MONOCYTES % (MANUAL) 5 %; NEUTROPHILS % (MANUAL) 12 %; REACTIVE LYMPHOCYTES 10 %
== END ==
LOC: HOSHH 10:00
PROVIDERS: ATTEND Family Medicine
DX: C91.92 Lymphoid leukemia, unspecified, in relapse (principal); K74.69 Other cirrhosis of liver; I25.10 Atherosclerotic heart disease of native coronary artery without angina pectoris; E11.9 Type 2 diabetes mellitus without complications
CPT/HCPCS: 80053; 85007; 85027; 85610